=== PATIENT | female | born 1985 | race Caucasian/White ===

== ENCOUNTER 2023-05-20 15:07 | Emergency (ER) | payer MEDICAID, SELFPAY ==
--- NOTE | 2023-05-20 15:10 | ED_ITS ---
HPI - General Adult General Chief complaint: General Medical Stated complaint: need methadone dose? Time Seen by Provider: 05/20/23 15:43 Source: patient Mode of arrival: ambulatory Limitations: no limitations History of Present Illness HPI narrative: This is a 38-year-old female past medical history of anxiety, depression, IV drug abuse last use at 07:00 presenting to the emergency department requesting med refill for trazodone 100 mg p.o. at bedtime for insomnia and requesting to be started on methadone again. Patient reports she has not been able to get her trazodone because her PCP left office she is currently waiting to see a new provider, last took it about a month ago. Patient also reports she is been using 1-2 bags of heroin per day, and is trying to stop. Reports a lot of increasing life stressors and depression. No visual, auditory and tactile hallucinations. No suicidal or homicidal ideation. Followed by therapist and sees him regularly. Denies medical complaints at this time. Patient also requesting Ensure, due to lack of appetite. Related Data Previous Rx's Medication Instructions Recorded food supplemt, lactose-reduced 1 ea PO BID #1,422 mL 05/20/23 (Ensure Original oral liquid) trazodone 100 mg tablet 100 mg PO BEDTIME PRN sleep #10 05/20/23 tabs Allergies Allergy/AdvReac Type Severity Reaction Status Date / Time No Known Allergies Allergy Verified 05/20/23 15:11 [No Known Allergies*] Review of Systems Review of Systems: Constitutional : No Weight loss, No Fever, No Chills, No Fatigue, No Malaise ENT/Mouth : No sore throat, No Rhinorrhea Eyes: No Eye Pain, No Swelling, No Redness Cardiovascular : No Chest Pain, No SOB, No Dyspnea on Exertion, No Orthopnea, No Edema, No Palpitations Respiratory : No Cough, No Sputum, No Wheezing Gastrointestinal : No Nausea, No Vomiting, No Diarrhea, No Constipation, No abdominal Pain, No Hematochezia, No Melena Genitourinary : No Dysuria, No Urinary Frequency, No Hematuria, Musculoskeletal : No joint pain, No Myalgias, No Joint Swelling Skin : No Skin Lesions, No rash Neuro : No Weakness, No Numbness, No Dizziness, No Headache Psych : No Anxiety/Panic, No Depression All other systems reviewed and are negative Yes all other systems are reviewed and are negative PMFSH Past Medical History Attestation statement: The following information was validated with the patient. Source: old records reviewed and nursing notes reviewed Social History Social History Advance Directives: No Advance Directives Information Provided: Yes Physical Exam ED Vital Signs: Vital Signs - 24 hr 05/20/23 15:11 Temperature 98.3 F Pulse Rate 88 Respiratory Rate 16 Blood Pressure 152/99 H Pulse Oximetry 98 Oxygen Delivery Method Room Air BMI result Body Mass Index 18.4 vss Appearance: Alert.? Oriented X3.? No acute distress.? Head: Normocephalic, atraumatic, no step-offs or deformities Eyes: Pupils equal, round and reactive to light.? ENT: Pharynx normal.? Neck: Normal inspection.? Neck supple.? CVS: Normal heart rate and rhythm.? Pulses normal.? Respiratory: No respiratory distress.? Breath sounds normal.? Abdomen: Soft and nontender.? Skin: Skin warm and dry.? Normal skin color.? Normal skin turgor.? Extremities: No lower extremity edema.? No calf ttp. 5/5 strength to bilateral upper and lower extremities Neuro: Oriented X 3.? No motor deficit.? No sensory deficit. CN 2-12 intact Course Course Course Narrative: This is an RME: Additional HPI, ROS, PE not included below will be deferred to primary provider. Patient is a 38-year-old female who presents to the emergency department requesting assistance with detox/methadone. Reports that she was previously established with [facility] clinic in [place], but was discharged due to missed dosing. Last used heroin this morning, intranasal at 0700. She states she needs a dose in ED today, and that she can follow-up there during the weekend, so long as she has a last dose letter and will see their provider 05/24/2023. Reevaluation(s) Reevaluation #1: Educated patient on diagnosis and treatment plan, answered all question, patient verbalizes understanding. At this time patient will be discharged home, advised to return with new or worsening symptoms. Educated on worrisome signs and symptoms and when to return. At this time I feel comfortable discharge home. Time: 17:34 Medications Administered Discontinued Medications Generic Name Dose Route Start Last Admin Trade Name Freq PRN Reason Stop Dose Admin Methadone HCl 30 mg 05/20/23 15:45 05/20/23 16:22 Methadone Hcl 20 Mg/2 Ml Oral.Conc PO 05/20/23 15:46 30 mg ONCE ONE Administration Medical Decision Making Medical Decision Making [facility] Narrative: 1700 38-year-old female presents requesting to start methadone and requesting a trazodone refill. No SI or HI. Reports depression and anxiety. Followed by therapist. Physical exam benign This is likely anxiety and depression at baseline, patient followed by therapist, offered her to be seen by care team however she states she is okay she has her own therapist, who she follows with regularly. No SI or HI no indications for Section 12. No signs of self-harm. Patient is offering with IV drug abuse, will start her on methadone, passenger coach driver is agree that this is a good idea, recovery nurse came to see patient and recommends starting her on 30 mg of methadone will give her last dose letter. Unlikely metabolic derangements. Plan at this time will refill trazodone based off med review patient has been on 100 mg p.o. at bedtime. Will also start her on methadone. No indication for care team evaluation as patient is refusing however it was offered to her. Differential Diagnosis Differential Diagnoses: The differential diagnosis associated with the presentation includes This is likely anxiety and depression at baseline, patient followed by therapist , offered her to be seen by care team however she states she is okay she has her own therapist, who she follows with regularly. No SI or HI no indications for Section 12. No signs of self-harm. Patient is offering with IV drug abuse, will start her on methadone, passenger coach driver is agree that this is a good idea, recovery nurse came to see patient and recommends starting her on 30 mg of methadone will give her last dose letter. Unlikely metabolic derangements. Admission/Observation Consideration of admission/observation: Escalation of care including admission/observation considered No indication Consult Healthcare Provider Management of the patient was discussed with: Psychiatric Registered Nurse Chronic Conditions Patient?s care impacted by: Other (polysubstance abuse ) Discharge Plan Discharge Clinical Impression: Depression, Medication refill Patient Disposition: Home, Self-Care Instructions: Depression (ED) Additional Instructions: Take your medications as prescribed. If you were prescribed antibiotics today, it is important that you take your medication to their entirety, do not skip any doses, do not finish them early. Follow-up with your primary care provider this week. Return to the emergency department with new or worsening symptoms. Such as fevers, chills, chest pain, shortness of breath, nausea, vomiting, dizziness, headache, vision changes, lethargy In case of emergency call 911 You were given your last dose letter here Prescriptions: New trazodone 100 mg tablet 100 mg PO BEDTIME PRN (Reason: sleep) Qty: 10 0RF Ensure Original Liquid 1 ea PO BID Qty: 1422 0RF Referrals: [facility] [Primary Care Provider] - 2 days Stand Alone Forms: Work/School Release
[2023-05-20 15:11] VITALS: BP 152/99; PULSE 88; RESP 16; TEMP 36.8; O2SAT 98; BMI 18.4
--- NOTE | 2023-05-20 15:53 | MHC.RECOVRN ---
Met with pt in RP after pt presented to ED looking to initiate methadone. Pt tearful, reporting increased anxiety and stress and trying to get everything back. Pt reports using 5-10 bags heroin daily, IN, last use this morning, 2 bags. Pt reports recently decreasing to this amount. Pt reports hx methadone through [facility], last dose in February. Pt is currently living in a tent in [place] and has not been in care with any providers recently. Pt has been advocating for herself successfully at [facility] to obtain providers, including mental health and PCP. Pt reports hx of Seroquel, clonazepam, Wellbutrin, trazodone and is looking to restart these as well. Pt educated on limits of the emergency department. Pt also reports recent 30 pound weight loss over the past 2 months and is concerned about overall health. Currently, pt reporting withdrawal symptoms including upset stomach, feeling hot/cold, restless, anxiety, irritability. Pt educated regarding [facility] and plans to present tomorrow morning for dosing. Discussed with ED provider, plan to administer 30 mg methadone. Pts referral sent to [facility]. Last dose letter to be provided to pt by [employer].
[2023-05-20] MEDS: methADONE HCl 20 MG/2 ML ORAL.CONC 30 MG PO (16:22)
[2023-05-20] MEDS: LORazepam 1 MG TABLET PO (17:42)
== END 2023-05-20 17:48 | disposition home or self-care (01) ==
PROVIDERS: Emergency Provider Emergency Medicine
DX: Z76.0 Encounter for issue of repeat prescription (principal); F32.A Depression, unspecified; F11.20 Opioid dependence, uncomplicated
CPT/HCPCS: 99282; 99284

== ENCOUNTER 2024-02-07 02:47 | Emergency (ER) | payer MEDICAID, SELFPAY ==
[2024-02-07 03:00] VITALS: BP 117/70; BP 132/90; PULSE 76; PULSE 95; RESP 18; TEMP 36.4; O2SAT 97; O2SAT 98; BMI 22.1
[2024-02-07 03:07] VITALS: BP 114/77; PULSE 76; RESP 17; TEMP 36.4; O2SAT 98
--- NOTE | 2024-02-07 03:28 | ED.PSYCH ---
HPI - Psych General Chief Complaint: Psychiatric Symptoms Stated Complaint: crisis Time Seen by Provider: 02/07/24 03:27 Source: patient and EMS Mode of arrival: EMS Limitations: no limitations History of Present Illness ED Provider: an ROA Narrative: Patient was running on the street yelling that her boyfriend was kidnapped patient is homeless lives in tent could not find her boyfriend according to patient he had some problem with other persons most likely he is kidnapped and police is not helping her patient denied any psych history or substance abuse Related Data Previous Rx's ?Medication ?Instructions ?Recorded food supplemt, lactose-reduced 1 ea PO BID #1,422 mL 05/20/23 (Ensure Original oral liquid) trazodone 100 mg tablet 100 mg PO BEDTIME PRN sleep #10 05/20/23 tabs Allergies Allergy/AdvReac Type Severity Reaction Status Date / Time No Known Allergies Allergy Verified 02/07/24 03:03 [No Known Allergies*] Review of Systems Review of Systems: Yes all other systems are reviewed and are negative [facility] Social History Social History Advance Directives: No Advance Directives Information Provided: Yes Do you have a plan to hurt others: No Plan Physical Exam Vital Signs: Vital Signs: Last Vital Signs Temp 98.4 F 02/07/24 04:30 Pulse 70 02/07/24 04:30 Resp 16 02/07/24 04:30 BP 117/80 02/07/24 04:30 Pulse Ox 97 02/07/24 04:30 O2 Del Method Room Air 02/07/24 04:30 BMI result Body Mass Index 22.1 Appearance: Alert. Oriented X3. No acute distress. Anxious Eyes: PERRLA, No Nystagmus ENT: Pharynx normal. Oral Mucosa moist Neck: Normal inspection. Neck supple. CVS: Normal heart rate and rhythm. Pulses normal. Respiratory: No respiratory distress. Equal air entry bilateral, no wheezing/rales/rhonchi Abdomen: Soft and nontender. Bowel sounds are present, no mass palpable, no CVA tenderness Skin: Skin warm and dry. Normal skin color. Normal skin turgor. Extremities: No lower extremity edema. No calf tenderness psych: Patient is very anxious denies any hallucination or delusions Neuro: Oriented X 3. No motor deficit. No sensory deficit.No cerebellar signs , cranial nerves II-XII intact Medical Decision Making Medical Decision Making MDM Narrative: Patient with acute anxiety with no prior psych issues feels comfortable to go home patient's mother will pick her up denies any psychotic issues at this time denies any substance abuse will come back to the ER/therapist if not better Discharge Plan Discharge Clinical Impression: Acute anxiety Patient Disposition: Home, Self-Care Instructions: Anxiety (ED) Additional Instructions: Follow up with therapist/psychiatrist Prescriptions: No Action trazodone 100 mg tablet 100 mg PO BEDTIME PRN (Reason: sleep) Qty: 10 0RF Ensure Original Liquid 1 ea PO BID Qty: 1422 0RF Interventions: [place]-Suicide Risk Severity Scale Last Done: 02/07/24 03:58 ED Discharge Assessment Last Done: 02/07/24 04:30 Discharge Date/Time: 02/07/24 04:31 Print Language: Namibian
--- NOTE | 2024-02-07 03:28 | PC.NURSE ---
patient denies was using additional substances today im concerned about my bf, kathi been getting threats, this is what happens when you call police (holding ear constantly) patient does appears guarded, apprehenasive.
[2024-02-07 04:30] VITALS: BP 117/80; PULSE 70; RESP 16; TEMP 36.9; O2SAT 97
== END 2024-02-07 04:31 | disposition home or self-care (01) ==
PROVIDERS: Emergency Provider Internal Medicine
DX: F41.9 Anxiety disorder, unspecified (principal); F19.10 Other psychoactive substance abuse, uncomplicated
CPT/HCPCS: 99283

== ENCOUNTER 2024-06-28 23:14 | Inpatient (IN) | payer MEDICAID, OTHER, SELFPAY ==
[2024-06-28 23:38] VITALS: BP 160/80; BP 170/92; PULSE 80; PULSE 99; RESP 18; TEMP 37; O2SAT 96; O2SAT 98; BMI 19.6
[2024-06-28 23:49] VITALS: BP 141/93; PULSE 93; RESP 17; TEMP 36.9; O2SAT 96
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
--- NOTE | 2024-06-29 | ECG_ITS ---
Test Reason : MED CLEARNCE Blood Pressure : / mmHG Vent. Rate : 085 BPM Atrial Rate : 085 BPM P-R Int : 132 ms QRS Dur : 076 ms QT Int : 360 ms P-R-T Axes : 022 036 055 degrees QTc Int : 428 ms Poor data quality Sinus rhythm with Premature atrial complexes with Aberrant conduction Nonspecific T wave abnormality Abnormal ECG No previous ECGs available Referred By: Gabrielle Contreras Electronically Signed By:DOMENICO FERRARA MD
--- NOTE | 2024-06-29 00:13 | PC.NURSE ---
t/w completed some follow up questions w client patient seems very tangential and disogranized. tech indicates mother called and wanted a call back [phone] jesus
[2024-06-29 00:38] LABS: Appearance Urine Cloudy; Color Urine Dark Yellow; Glucose Urine UA Negative (Negative); Leukocyte Esterase Urine Trace (Negative); Nitrite Urine Negative (Negative); PH 5.5 (5.0-9.0); Specific Gravity - Urine >= 1.030 (1.005-1.025); UMIC TRIGGER UACC YES; Urine Blood Negative (Negative); Urine Ketones 15 mg/dL (Negative); Urine Protein 30 (1+) mg/dL (Neg-Trace)
[2024-06-29 00:40] LABS: UPreg QC Valid YES; Urine Pregnancy NEGATIVE (NEGATIVE)
[2024-06-29] MEDS: LORazepam 1 MG TABLET 2 MG PO ×2 (00:42→09:21)
[2024-06-29 00:49] LABS: Amphetamine Screen Urine Not Detected (Not Detect); Barbiturates, Urine Not Detected (Not Detect); Benzodiazepines Screen Urine Not Detected (Not Detect); Buprenorphine Scr Not Detected (Not Detect); Cannabinoid Screen Urine POSITIVE (Not Detect); Cocaine Screen Urine POSITIVE (Not Detect); Fentanyl, urine POSITIVE (Not Detect); Methadone Screen, Urine Positive (Not Detect); Opiate Screen Urine Not Detected (Not Detect); Oxycodone Screen Urine Not Detected (Not Detect); Phencyclidine Screen Urine Not Detected (Not Detect)
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
[2024-06-29 01:18] LABS: Bacteria Urine 3+ (None Seen); RBC Urine 0-2 /HPF (0-2); WBC Urine 0-5 /HPF (0-5)
[2024-06-29 01:24] LABS: MANUAL DIFF FLAG NO
[2024-06-29 01:29] LABS: Basophils Percent Auto 0.6 % (0-2); Eosinophils Absolute Auto 0.1 X10*3/uL (0.0-0.4); Eosinophils Percent Auto 1.1 % (0-4); Hematocrit 38.1 % (37.0-47.0); Hemoglobin 13.4 g/dl (12.0-16.0); Imm Gran Abs Auto 0.01 X10*3/uL (0.00-0.03); Imm Gran Pct Auto 0.2 % (0.0-0.4); Lymphocytes Absolute Auto 2.7 X10*3/uL (1.2-4.9); Lymphocytes Percent Auto 41.6 % (20-40); Mean Corpuscular HGB Conc 35.2 g/dl (31.0-35.0); Mean Corpuscular Hemoglobin 31.3 pg (27.0-33.0); Mean Platelet Volume 10.7 fL (9.4-12.3); Monocytes Absolute Auto 0.4 X10*3/uL (0.1-1.2); Monocytes Percent Auto 6.7 % (2-11); Neutrophils Absolute Auto 3.3 x10*3/uL (2.0-8.3); Neutrophils Percent Auto 49.8 % (45-73); Platelet Count 215 X10*3/uL (160-400); Red Blood Count 4.28 X10*6/uL (4.20-5.50); Red Cell Distribution Width 12.2 % (11.0-16.0); White Blood Count 6.5 X10*3/uL (4.8-10.8)
[2024-06-29 01:45] LABS: Alanine Aminotransferase 18 U/L (0-31); Alkaline Phosphatase 61 U/L (39-117); Anion Gap 17 (12-20); Aspartate Amino Transferase 34 U/L (5-31); Bilirubin Total 0.9 mg/dL (0.0-1.0); Blood Urea Nitrogen 22 mg/dL (9-16); Calcium 9.8 mg/dL (8.4-10.2); Carbon Dioxide 23 mmol/L (22-29); Chloride 102 mmol/L (96-108); Creatinine Clr Calc Pharmacy 62.5; Estimated Glomerular Filt Rate > 60; Ethanol < 10 mg/dL; Glucose Random 80 mg/dL (60-115); Potassium 3.2 mmol/L (3.3-5.1); Sodium 139 mmol/L (135-145)
--- NOTE | 2024-06-29 04:24 | MHC.CARE ---
T/W spoke with PTs mother Danielle ([phone]) who reports that Pt has reportedly been smoking Crack Cocaine all day with her Boy friend. Danielle said that Pt has a long drug addiction history and is currently homeless. She reports that Pt has had prior suicide attempts by jumping off a bridge around ten years ago, jumping out of a car and drinking Draino because they wouldn't buy her drugs. Danielle reports Pt has been to several Drug treatment programs the most recent being [facility] and the [facility]. Danielle said that she has had to utilize Police assistance to find her because she had not seen or heard from her for two weeks.
[2024-06-29 06:00] VITALS: RESP 18
--- NOTE | 2024-06-29 06:26 | HE.PHANOTE ---
RE METHADONE Pharmacy received patients methadone verification form, patient gets dosed with [facility]. Last dose was 150 mg last dose on 06/28/24 @0900.
[2024-06-29] MEDS: Potassium Chloride ER 20 MEQ TAB.ER.PRT 40 MEQ PO (07:34)
--- NOTE | 2024-06-29 07:34 | PC.NURSE ---
Care of Pt assumed at change of shift. Pt comes to nurses station demanding to leave then returns to her room. Pt eats about 40% of her breakfast. Pt agreeable to take potassium medication following counseling on her low K+ level. During med administration Pt becomes excessively tear and beings to states that people are trying to keep her locked away and steal her money and she cannot be here. Pt given emotional support and verbal reassurance that Care Team will see her.
--- NOTE | 2024-06-29 07:44 | PC.NURSE ---
Per shift change report, Pt was not given oral potassium at time order was generated as Pt resting comfortably. Medication given this AM when Pt is awake/alert. Reviewed with Pt her K+ level and indication for oral replacement and Pt agreeable to take medication at this time.
--- NOTE | 2024-06-29 08:26 | MHC.CARE ---
Patient seen by CARE team. She presents as distressed, paranoid, delusional thought content, actively responding to internal stimuli, agitated. She will be IPLOC, section 12 in chart.
[2024-06-29] MEDS: methADONE HCl 20 MG/2 ML ORAL.CONC 150 MG PO (09:45)
--- NOTE | 2024-06-29 10:50 | PC.NURSE ---
Pt reports [facility] has her identity incorrect. Pt advised Registration is in need to meeting with her to confirm all her information and was called to the pod. Registration attempts to meet with Pt to complete registration process. Per Registration staff, Pt will not verbally respond to questions and does not engage or acknowledge the interaction. Will contact registration again when Pt is willing to cooperate.
--- NOTE | 2024-06-29 12:50 | PC.NURSE ---
Pt being admitted inpatient bed within hospital. RN to RN report completed. Tech and Security with Pt for transport upstairs. Security made aware that Pt has made threats of finding a way to leaving the hospital. Pt leaves ED BH pod in wheelchair without incident.
[2024-06-29 13:06] VITALS: BP 126/66; PULSE 66; RESP 16; TEMP 36.8; O2SAT 98
--- NOTE | 2024-06-29 14:09 | PC.ADMIT ---
This is the 1st admission for this 39 y.o. female to this [facility] at [facility]. Referred by Care Team at [facility] with Dx of Substance induced psychotic d/o with delusions, Cocaine use moderate-severe, Opiate use moderate- severe. Nurse to nurse done with [facility] ED pod prior to admission. Meds verified by [facility] ED Pod, admission orders received from Slime Barajas. Arrived on unit on a Section 12A at 1300 and placed on 15 min safety checks. Precipitating events to admission: brought in by ambulance called by boyfriend due to pt exhibiting paranoia, delusions, responding to internal dialogue. Other precipitating factors include: hx substance use for many years, homelessness-living in tent encampment for many years. Tox screen positive for Methadone, Fentanyl, Cocaine Marijuana. Pt acknowledges use of all substances. Receives Methadone at [facility] daily. ETOH <10, pt denies use. Skin integrity check done upon arrival/tire changer done with 2 staff present. Pt refused to remove small yellow colored hoop from left nose area and small red stone from right tragus; charge nurse and intensive care unit nurse informed. Restless and disorganized during admission process. States this may be due to drug withdrawal. Methadone 150mg po received in [facility] Pod today at 0945. Delusional presentation, speaking about holograms that enter body during surgeries and implant cameras. States she is no longer homeless. States her uncle from [facility] arrived 2 days ago to bring her the money her twin sister left for her. Mood liability noted- calm, restless, tearful, paranoid. States she cannot be kept here and insisting she needs to leave.
--- NOTE | 2024-06-29 15:39 | HO.PSYADMNOT ---
HPI Date of Service: 06/29/24 Chief Complaint: Crisis Sources of Information: patient interviewed, chart reviewed and crisis/core team assessment reviewed HPI Subjective Notes: Moss Warning and Section 12B Narrative: Patient is a 39-year-old female with of PTSD, opioid use d/o, cocaine use d/o, who was brought in by ambulance due to exhibiting paranoia delusional and responding to internal stimuli. Per crisis report, patient is living in a camp site in [place] and was brought in by ambulance due to her boyfriend calling EMS. Patient was loudly yelling and self arguing regarding her organs in holograms. She denies SI/HI. She claimed that she has a twin and the ED had the wrong person. Per patient's mother, patient has struggled with substance abuse since her 20s. She does not exhibit signs and symptoms of psychosis at baseline. Patient reports she has providers through [facility] in [place]. Patient reports treatment at [facility] and history of detox admissions. She denies history of inpatient psychiatric hospitalization. U tox positive for cocaine, fentanyl, methadone, THC. During admission assessment, patient presents with flight of ideas, tangential, paranoid and delusional. Rapid and pressured speech. Disorganized; patient stated, the girl that was cyber bullying me is acting and is jumping in bodies. The holograms are a medical trial that are happening on me and my boyfriend. It is from [place]. She can jump into my boyfriend's body. I need to get my son. I have been dealing with this for 6 years. People are going to him because they are jealous. They put a documentary of me on [place] [employer] . Patient reports using crack/cocaine daily, heroin daily and marijuana daily. Patient requesting to be discharged. Poor insight/judgment. Past Psychiatric History: Patient reports this is her 1st inpatient psychiatric hospitalization. History of detox admissions Provider through [facility]. Medical Evaluation Reviewed: Yes [facility] Family History: Unknown Social History: Homeless, single, 1 son who is with biological father. Disability. GED. Substance History: Patient reports daily crack/cocaine/heroin/marijuana use Trauma History: Yes Diagnostics Vital Signs (24Hr): Vital Signs - 24 hr 06/28/24 23:38 06/28/24 23:49 06/29/24 06:00 Temperature 98.6 F 98.5 F Pulse Rate 80 93 Respiratory Rate 18 17 18 Blood Pressure 160/80 H 141/93 H Pulse Oximetry 98 96 Oxygen Delivery Method Room Air Room Air 06/29/24 13:06 Temperature 98.2 F Pulse Rate 66 Respiratory Rate 16 Blood Pressure 126/66 Pulse Oximetry 98 Oxygen Delivery Method Room Air BMI result Body Mass Index 20.0 Labs 06/29/24 01:17 06/29/24 01:17 Labs: Laboratory Results - last 48 hr 06/29/24 06/29/24 06/29/24 00:26 00:27 01:17 WBC 6.5 RBC 4.28 Hgb 13.4 Hct 38.1 MCV 89.0 MCH 31.3 MCHC 35.2 H RDW 12.2 Plt Count 215 MPV 10.7 Immature Gran % (Auto) 0.2 Neut % (Auto) 49.8 Lymph % (Auto) 41.6 H [place] % (Auto) 6.7 Eos % (Auto) 1.1 Baso % (Auto) 0.6 Lymph # (Auto) 2.7 [place] # (Auto) 0.4 Eos # (Auto) 0.1 Baso # (Auto) 0.0 Abs Immat Gran (auto) 0.01 Absolute Neuts (auto) 3.3 Absolute Nucleated RBC 0.000 Nucleated RBC % (auto) 0.0 Sodium 139 Potassium 3.2 L Chloride 102 Carbon Dioxide 23 Anion Gap 17 BUN 22 H Creatinine 1.00 Estim Creat Clear Calc 62.5 Estimated GFR > 60 Random Glucose 80 Calcium 9.8 Total Bilirubin 0.9 AST 34 H ALT 18 Alkaline Phosphatase 61 Total Protein 8.0 Albumin 5.0 Urine Color Dark Yellow Urine Appearance Cloudy Urine pH 5.5 Ur Specific [place] >= 1.030 H Urine Protein 30 (1+) H Urine Glucose (UA) Negative Urine Ketones 15 Urine Blood Negative Urine Nitrite Negative Ur Leukocyte Esterase Trace H Urine RBC 0-2 Urine WBC 0-5 Ur Squamous Epith Cells 11-20 Urine Bacteria 3+ Hyaline Casts 6-10 Urine Test NEGATIVE Urine Opiates Screen Not Detected Ur Buprenorphine Scrn Not Detected Ur Oxycodone Screen Not Detected Urine Methadone Screen Positive H Urine Fentanyl Screen POSITIVE H Ur Barbiturates Screen Not Detected Ur Phencyclidine Scrn Not Detected Ur Amphetamines Screen Not Detected U Benzodiazepines Scrn Not Detected Urine Cocaine Screen POSITIVE H U Marijuana (THC) Screen POSITIVE H Ethyl Alcohol < 10 Meds/Allergies Meds Home Medications ?Medication ?Instructions ?Recorded ?Confirmed ?Type methadone 150 mg PO DAILY 06/28/24 06/29/24 History Allergies Allergies Allergy/AdvReac Type Severity Reaction Status Date / Time No Known Allergies Allergy Verified 06/28/24 23:45 [No Known Allergies*] Mental Status Exam Mental Status Exam Patient Appearance: Appropriate Level of Consciousness: Awake and Alert Patient Behavior: Anxious and Crying Mood Description: Anxious Affect Description: Anxious Speech Pattern: Rapid, Loud and Pressured Delusions: Paranoid Ideation Thought Process: Racing Thought Content: positive for Racing, positive for Tangential and positive for Disorganized Judgement: Poor Assessment & Plan Assessment & Plan (1) Acute psychosis: Status: Acute Code(s): F23 - Brief psychotic disorder (2) PTSD (post-traumatic stress disorder): Status: Acute Code(s): F43.10 - Post-traumatic stress disorder, unspecified (3) Opioid use disorder: Status: Acute Code(s): F11.90 - Opioid use, unspecified, uncomplicated (4) Cocaine use disorder: Status: Acute Code(s): F14.10 - Cocaine abuse, uncomplicated Plan Patient is a 39-year-old female with of PTSD, opioid use d/o, cocaine use d/o, who was brought in by ambulance due to exhibiting paranoia delusional and responding to internal stimuli. Plan: 12 b 5 minute safety checks Continue methadone dose Start: Risperdal 1 mg p.o. b.i.d. Obtain collateral Discharge planning Patient educated on: diagnosis Reason for continued inpatient stay Substantial Risk for: med/psych decompensation Statement Statement: I have reviewed the history and physical and performed a pertinent examination on my patient. No changes have occurred unless specified. If the History and Physical was not performed prior to admission, the Hospitalist's service will be consulted for completing the admission physical. Time Spent With Patient Time: Total time managing care of this patient today _60___ minutes.
[2024-06-29] MEDS: OLANZapine 5 MG TABLET PO (15:48)
[2024-06-29] MEDS: hydrOXYzine HCL 25 MG TABLET PO (15:48)
[2024-06-29] MEDS: Nicotine 21 MG PATCH.TD24 TRANSDERMA (15:52)
[2024-06-29] MEDS: Nicotine Polacrilex 2 MG GUM 4 MG BUCCAL (15:53)
[2024-06-29] MEDS: traZODone HCL 50 MG TABLET PO (21:24)
[2024-06-29] MEDS: risperiDONE 1 MG TABLET PO (21:24)
[2024-06-30 07:40] VITALS: BP 100/55; PULSE 81; RESP 16; TEMP 37.3; O2SAT 97
[2024-06-30] MEDS: methADONE HCl 20 MG/2 ML ORAL.CONC 150 MG PO (08:24)
[2024-06-30] MEDS: Nicotine Polacrilex 2 MG GUM 4 MG BUCCAL (10:27)
--- NOTE | 2024-06-30 13:20 | HO.PSYCHPN ---
Subjective Subjective Date of Service: 06/30/24 Reason For Visit: Crisis Subjective Notes: Section 12B Interim History: Pt presents as very fearful, hypervigilant, reporting hearing voices telling her that there will be a massacre tonight and her son will be kill too. She believes some people she knows are playing with holograms. she goes on to explain that it started as a game and these people are not tele transporting and killing others. She believes she was sent here to quiet her down because she knows what is happening. She denies SI/HI. Hearing voices of female who she believes is outside waiting for her. She accepted olanzapine and ativan. she demands to be discharged, explained she is on a sect 12b, not doing well and needs treatment. Mental Status Exam Mental Status Exam Narrative: Appearance: wearing hospital gown, fair hygiene, fearful and hypervigilant Behaviors: initially guarded, and irritable, but later calmer Psychomotor: agitation Speech: clear, normal rate/rhythm/volume, spontaneous TP: tangential, at times disorganized TC: needing to go to stop the hologram Mood: not well Affect: very fearful hypervigilant SI: none HI: none VH/AH: hearing voices, also seems some visual hallucinations Delusions: paranoid delusions Insight/judgment: impaired x 2. memory/cog: alert, oriented x 3. not to situation thinks she is here because someone wants her to be quiet about delusions she is aware of. Diagnostics Vital Signs (24Hr): Vital Signs - 24 hr 06/30/24 07:40 Temperature 99.1 F Pulse Rate 81 Respiratory Rate 16 Blood Pressure 100/55 L Pulse Oximetry 97 Oxygen Delivery Method Room Air BMI result Body Mass Index 20.0 Labs 06/29/24 01:17 06/29/24 01:17 Labs: Laboratory Results - last 48 hr 06/29/24 06/29/24 06/29/24 00:26 00:27 01:17 WBC 6.5 RBC 4.28 Hgb 13.4 Hct 38.1 MCV 89.0 MCH 31.3 MCHC 35.2 H RDW 12.2 Plt Count 215 MPV 10.7 Immature Gran % (Auto) 0.2 Neut % (Auto) 49.8 Lymph % (Auto) 41.6 H [place] % (Auto) 6.7 Eos % (Auto) 1.1 Baso % (Auto) 0.6 Lymph # (Auto) 2.7 [place] # (Auto) 0.4 Eos # (Auto) 0.1 Baso # (Auto) 0.0 Abs Immat Gran (auto) 0.01 Absolute Neuts (auto) 3.3 Absolute Nucleated RBC 0.000 Nucleated RBC % (auto) 0.0 Sodium 139 Potassium 3.2 L Chloride 102 Carbon Dioxide 23 Anion Gap 17 BUN 22 H Creatinine 1.00 Estim Creat Clear Calc 62.5 Estimated GFR > 60 Random Glucose 80 Calcium 9.8 Total Bilirubin 0.9 AST 34 H ALT 18 Alkaline Phosphatase 61 Total Protein 8.0 Albumin 5.0 Urine Color Dark Yellow Urine Appearance Cloudy Urine pH 5.5 Ur Specific [place] >= 1.030 H Urine Protein 30 (1+) H Urine Glucose (UA) Negative Urine Ketones 15 Urine Blood Negative Urine Nitrite Negative Ur Leukocyte Esterase Trace H Urine RBC 0-2 Urine WBC 0-5 Ur Squamous Epith Cells 11-20 Urine Bacteria 3+ Hyaline Casts 6-10 Urine Test NEGATIVE Urine Opiates Screen Not Detected Ur Buprenorphine Scrn Not Detected Ur Oxycodone Screen Not Detected Urine Methadone Screen Positive H Urine Fentanyl Screen POSITIVE H Ur Barbiturates Screen Not Detected Ur Phencyclidine Scrn Not Detected Ur Amphetamines Screen Not Detected U Benzodiazepines Scrn Not Detected Urine Cocaine Screen POSITIVE H U Marijuana (THC) Screen POSITIVE H Ethyl Alcohol < 10 Medications Medications Current Medications Acetaminophen (Acetaminophen 325 Mg Tablet) 650 mg PO Q6H PRN PRN Reason: Headache/Pain Mild Scale (1-3) Al Hydroxide/Mg Hydroxide (Magnesium Hydrox/Alum Hydrox 30 Ml Oral.Susp) 30 ml PO Q6H PRN PRN Reason: Heartburn/Nausea Hydroxyzine HCl (Hydroxyzine Hcl 25 Mg Tablet) 25 mg PO Q6H PRN PRN Reason: Anxiety Last Admin: 06/29/24 15:48 Dose: 25 mg Magnesium Hydroxide (Milk Of Magnesia 30 Ml Oral.Susp) 30 ml PO DAILY PRN PRN Reason: Constipation Methadone HCl (Methadone Hcl 20 Mg/2 Ml Oral.Conc) 150 mg PO DAILY [facility] Last Admin: 06/30/24 08:24 Dose: 150 mg Nicotine (Nicotine 21 Mg Patch.Td24) 21 mg TRANSDERMA DAILY [facility] Last Admin: 06/30/24 08:26 Dose: Not Given Nicotine Polacrilex (Nicotine Polacrilex 2 Mg Gum) 4 mg BUCCAL Q2H PRN PRN Reason: Nicotine Cravings Last Admin: 06/30/24 10:27 Dose: 4 mg Olanzapine (Olanzapine 5 Mg Tablet) 5 mg PO Q4H PRN PRN Reason: agitation Last Admin: 06/29/24 15:48 Dose: 5 mg Risperidone (Risperidone 1 Mg Tablet) 1 mg PO BID EN Last Admin: 06/30/24 08:26 Dose: Not Given Trazodone HCl (Trazodone Hcl 50 Mg Tablet) 50 mg PO BEDTIME MRX1 PRN PRN Reason: Insomnia Last Admin: 06/29/24 21:24 Dose: 50 mg Allergies Allergies Allergy/AdvReac Type Severity Reaction Status Date / Time No Known Allergies Allergy Verified 06/28/24 23:45 [No Known Allergies*] Assessment & Plan Assessment & Plan (1) Schizophrenia: Status: Acute Code(s): F20.9 - Schizophrenia, unspecified (2) Acute psychosis: Status: Deleted Code(s): F23 - Brief psychotic disorder (3) PTSD (post-traumatic stress disorder): Status: Acute Code(s): F43.10 - Post-traumatic stress disorder, unspecified (4) Opioid use disorder: Status: Acute Code(s): F11.90 - Opioid use, unspecified, uncomplicated (5) Cocaine use disorder: Status: Acute Code(s): F14.10 - Cocaine abuse, uncomplicated Plan Patient is a 39-year-old female with of PTSD, opioid use d/o, cocaine use d/o, who was brought in by ambulance due to exhibiting paranoia delusional and responding to internal stimuli. Plan: 06/30- continue risperidone, had additional doses of olanzapine and one time doses of ativan due to severe paranoid delusions, hypervigilant and fearful. Reason for continued inpatient stay Substantial Risk for: inability to function Time Spent With Patient Time: Total time managing care of this patient today ____ minutes.
[2024-06-30] MEDS: OLANZapine ODT 10 MG TAB.RAPDIS TRANSLINGU (14:12)
[2024-06-30] MEDS: LORazepam 1 MG TABLET 2 MG PO (14:12)
[2024-06-30 20:00] VITALS: BP 124/80; PULSE 80; RESP 16; TEMP 36.8; O2SAT 98
[2024-06-30] MEDS: traZODone HCL 50 MG TABLET PO (22:58)
[2024-07-01 07:35] VITALS: BP 121/73; PULSE 82; RESP 16; TEMP 37; O2SAT 98
[2024-07-01] MEDS: methADONE HCl 20 MG/2 ML ORAL.CONC 150 MG PO (07:50)
[2024-07-01] MEDS: OLANZapine 10 MG TABLET PO (07:53)
[2024-07-01] MEDS: Nicotine 21 MG PATCH.TD24 TRANSDERMA (08:54)
[2024-07-01] MEDS: Nicotine Polacrilex 2 MG GUM 4 MG BUCCAL ×2 (09:12→14:29)
[2024-07-01] MEDS: LORazepam 1 MG TABLET 2 MG PO (11:54)
[2024-07-01] MEDS: HaloperidoL 5 MG TABLET PO (11:54)
[2024-07-01 20:00] VITALS: BP 124/78; PULSE 80; RESP 16; TEMP 37.1; O2SAT 98
--- NOTE | 2024-07-01 20:01 | HO.PSYCHPN ---
Subjective Subjective Date of Service: 07/01/24 Reason For Visit: Crisis Subjective Notes: Section 12B Interim History: Pt continues to presents as severe paranoid thinking people are going to be killed. She is fearful, hypervigilant. Calmer after our conversation and again agreed haldol 5mg and ativan 2mg. she is insisting on leaving on sect 12b, pending collateral information. Diagnostics Vital Signs (24Hr): Vital Signs - 24 hr 07/01/24 07:35 Temperature 98.6 F Pulse Rate 82 Respiratory Rate 16 Blood Pressure 121/73 Pulse Oximetry 98 Oxygen Delivery Method Room Air BMI result Body Mass Index 20.0 Labs 06/29/24 01:17 06/29/24 01:17 Medications Medications Current Medications Acetaminophen (Acetaminophen 325 Mg Tablet) 650 mg PO Q6H PRN PRN Reason: Headache/Pain Mild Scale (1-3) Al Hydroxide/Mg Hydroxide (Magnesium Hydrox/Alum Hydrox 30 Ml Oral.Susp) 30 ml PO Q6H PRN PRN Reason: Heartburn/Nausea Hydroxyzine HCl (Hydroxyzine Hcl 25 Mg Tablet) 25 mg PO Q6H PRN PRN Reason: Anxiety Last Admin: 06/29/24 15:48 Dose: 25 mg Magnesium Hydroxide (Milk Of Magnesia 30 Ml Oral.Susp) 30 ml PO DAILY PRN PRN Reason: Constipation Methadone HCl (Methadone Hcl 20 Mg/2 Ml Oral.Conc) 150 mg PO DAILY [facility] Last Admin: 07/01/24 07:50 Dose: 150 mg Nicotine (Nicotine 21 Mg Patch.Td24) 21 mg TRANSDERMA DAILY [facility] Last Admin: 07/01/24 08:54 Dose: 21 mg Nicotine Polacrilex (Nicotine Polacrilex 2 Mg Gum) 4 mg BUCCAL Q2H PRN PRN Reason: Nicotine Cravings Last Admin: 07/01/24 14:29 Dose: 4 mg Olanzapine (Olanzapine 10 Mg Tablet) 10 mg PO Q4H PRN PRN Reason: agitation Last Admin: 07/01/24 07:53 Dose: 10 mg Risperidone (Risperidone 1 Mg Tablet) 1 mg PO BID [facility] Last Admin: 07/01/24 08:55 Dose: Not Given Trazodone HCl (Trazodone Hcl 50 Mg Tablet) 50 mg PO BEDTIME MRX1 PRN PRN Reason: Insomnia Last Admin: 06/30/24 22:58 Dose: 50 mg Allergies Allergies Allergy/AdvReac Type Severity Reaction Status Date / Time No Known Allergies Allergy Verified 06/28/24 23:45 [No Known Allergies*] Assessment & Plan Assessment & Plan (1) Acute psychosis: Status: Deleted Code(s): F23 - Brief psychotic disorder (2) PTSD (post-traumatic stress disorder): Status: Acute Code(s): F43.10 - Post-traumatic stress disorder, unspecified (3) Opioid use disorder: Status: Acute Code(s): F11.90 - Opioid use, unspecified, uncomplicated (4) Cocaine use disorder: Status: Acute Code(s): F14.10 - Cocaine abuse, uncomplicated Plan Patient is a 39-year-old female with of PTSD, opioid use d/o, cocaine use d/o, who was brought in by ambulance due to exhibiting paranoia delusional and responding to internal stimuli. Plan: 12 b 5 minute safety checks Continue methadone dose 07/01 continue current medications, has required prn antipsychotic due to paranoia. Reason for continued inpatient stay Substantial Risk for: inability to function Time Spent With Patient Time: Total time managing care of this patient today ____ minutes.
[2024-07-01] MEDS: LORazepam 1 MG TABLET PO (20:49)
[2024-07-01] MEDS: traZODone HCL 50 MG TABLET PO (20:49)
[2024-07-01] MEDS: Milk of Magnesia 30 ML ORAL.SUSP PO (20:54)
[2024-07-02] MEDS: methADONE HCl 20 MG/2 ML ORAL.CONC 150 MG PO (07:45)
[2024-07-02 08:00] VITALS: RESP 16
[2024-07-02] MEDS: Nicotine Polacrilex 2 MG GUM 4 MG BUCCAL ×2 (09:08→12:33)
[2024-07-02] MEDS: Nicotine 21 MG PATCH.TD24 TRANSDERMA (09:09)
--- NOTE | 2024-07-02 10:13 | P.PNPSI_ITS ---
Subjective Subjective Date of Service: 07/02/24 Reason For Visit: Crisis Subjective Notes: Section 12B Interim History: Patient presents labile and disorganized. Demanding to be discharged; educated that she is on a section 12B. 12B up on 07/05/24. Delusional, paranoid, anxious. Rapid and pressured speech. Patient stated, I was put here wrongfully. I have been cyber-bullied for 6 years. In January they killed me and put me in a hologram. It's hard to explain. I never said I was going to kill myself. I thought my boyfriend was going to kill me but it was not him; it's Nellie who was inside of his body. I don't want to say too much. You know the movies where you can hope to someone's body, that is what they are doing. I would never hurt any of them. I would reported to the Feds if they try to hurt me . T/W reviewed risks/benefits of Haldol and ativan; pt agreed to taking medications while hospitalized. She denies SI/HI/VH/AH. Start: Haldol 5mg PO BID and Ativan 0.5mg PO BID Review of Systems Constitutional: Reports as per HPI Eyes: Reports as per HPI Reports as per HPI Cardiovascular: Reports as per HPI Respiratory: Reports as per HPI Gastrointestinal: Reports as per HPI Genitourinary: Reports as per HPI Musculoskeletal: Reports as per HPI Skin/Breast: Reports as per HPI Reports as per HPI Psychiatric: Reports as per HPI Endocrine: Reports as per HPI Hematologic/Lymphatic: Reports as per HPI Allergic/Immunologic: Reports as per HPI Mental Status Exam Mental Status Exam Narrative: Pt is alert and oriented; behavior is anxious; dressed in casual attire; eye contact appropriate; Speech is rapid rate, normal volume and pressured; labile, disorganized, paranoid, delusional, focused on discharge. denies SI/HI/VH/AH. Diagnostics Vital Signs (24Hr): Vital Signs - 24 hr 07/01/24 20:00 Temperature 98.7 F Pulse Rate 80 Respiratory Rate 16 Blood Pressure 124/78 Pulse Oximetry 98 Oxygen Delivery Method Room Air BMI result Body Mass Index 20.0 Labs 06/29/24 01:17 06/29/24 01:17 Medications Medications Current Medications Acetaminophen (Acetaminophen 325 Mg Tablet) 650 mg PO Q6H PRN PRN Reason: Headache/Pain Mild Scale (1-3) Al Hydroxide/Mg Hydroxide (Magnesium Hydrox/Alum Hydrox 30 Ml Oral.Susp) 30 ml PO Q6H PRN PRN Reason: Heartburn/Nausea Hydroxyzine HCl (Hydroxyzine Hcl 25 Mg Tablet) 25 mg PO Q6H PRN PRN Reason: Anxiety Last Admin: 06/29/24 15:48 Dose: 25 mg Magnesium Hydroxide (Milk Of Magnesia 30 Ml Oral.Susp) 30 ml PO DAILY PRN PRN Reason: Constipation Last Admin: 07/01/24 20:54 Dose: 30 ml Methadone HCl (Methadone Hcl 20 Mg/2 Ml Oral.Conc) 150 mg PO DAILY [facility] Last Admin: 07/02/24 07:45 Dose: 150 mg Nicotine (Nicotine 21 Mg Patch.Td24) 21 mg TRANSDERMA DAILY [facility] Last Admin: 07/02/24 09:09 Dose: 21 mg Nicotine Polacrilex (Nicotine Polacrilex 2 Mg Gum) 4 mg BUCCAL Q2H PRN PRN Reason: Nicotine Cravings Last Admin: 07/02/24 09:08 Dose: 4 mg Olanzapine (Olanzapine 10 Mg Tablet) 10 mg PO Q4H PRN PRN Reason: agitation Last Admin: 07/01/24 07:53 Dose: 10 mg Risperidone (Risperidone 1 Mg Tablet) 1 mg PO BID [facility] Last Admin: 07/02/24 09:09 Dose: Not Given Trazodone HCl (Trazodone Hcl 50 Mg Tablet) 50 mg PO BEDTIME MRX1 PRN PRN Reason: Insomnia Last Admin: 07/01/24 20:49 Dose: 50 mg Allergies Allergies Allergy/AdvReac Type Severity Reaction Status Date / Time No Known Allergies Allergy Verified 06/28/24 23:45 [No Known Allergies*] Assessment & Plan Assessment & Plan (1) Acute psychosis: Status: Deleted Code(s): F23 - Brief psychotic disorder (2) PTSD (post-traumatic stress disorder): Status: Acute Code(s): F43.10 - Post-traumatic stress disorder, unspecified (3) Opioid use disorder: Status: Acute Code(s): F11.90 - Opioid use, unspecified, uncomplicated (4) Cocaine use disorder: Status: Acute Code(s): F14.10 - Cocaine abuse, uncomplicated Plan Patient is a 39-year-old female with of PTSD, opioid use d/o, cocaine use d/o, who was brought in by ambulance due to exhibiting paranoia delusional and responding to internal stimuli. Plan: 12 b 5 minute safety checks Continue methadone dose 07/01 continue current medications, has required prn antipsychotic due to paranoia. 07/03: Patient presents labile and disorganized. Demanding to be discharged; educated that she is on a section 12B. 12B up on 07/05/24. Delusional, paranoid, anxious. Rapid and pressured speech. Patient stated, I was put here wrongfully. I have been cyber-bullied for 6 years. In January they killed me and put me in a hologram. It's hard to explain. I never said I was going to kill myself. I thought my boyfriend was going to kill me but it was not him; it's Nellie who was inside of his body. I don't want to say too much. You know the movies where you can hope to someone's body, that is what they are doing. I would never hurt any of them. I would reported to the Feds if they try to hurt me . T/W reviewed risks/benefits of Haldol and ativan; pt agreed to taking medications while hospitalized. She denies SI/HI/VH/AH. T/W called pt's mother, Danielle, to obtain collateral; waiting ad operations specialist back. Start: Haldol 5mg PO BID and Ativan 0.5mg PO BID Patient educated on: diagnosis and medication risk/benefits Reason for continued inpatient stay Substantial Risk for: med/psych decompensation Time Spent With Patient Time: Total time managing care of this patient today _30___ minutes.
[2024-07-02] MEDS: HaloperidoL 5 MG TABLET PO ×2 (12:59→20:24)
[2024-07-02] MEDS: LORazepam 0.5 MG TABLET PO ×2 (13:07→20:24)
[2024-07-02] MEDS: OLANZapine 10 MG TABLET PO (14:57)
[2024-07-02] MEDS: hydrOXYzine HCL 25 MG TABLET PO (17:23)
[2024-07-02 20:00] VITALS: BP 128/78; PULSE 83; RESP 16; TEMP 36.6; O2SAT 98
[2024-07-02] MEDS: traZODone HCL 50 MG TABLET PO (20:24)
[2024-07-03 07:35] VITALS: BP 121/75; PULSE 78; RESP 16; TEMP 36.7; O2SAT 99
[2024-07-03] MEDS: methADONE HCl 20 MG/2 ML ORAL.CONC 150 MG PO (07:37)
[2024-07-03] MEDS: HaloperidoL 5 MG TABLET PO ×2 (08:03→20:42)
[2024-07-03] MEDS: Nicotine 21 MG PATCH.TD24 TRANSDERMA (08:03)
[2024-07-03] MEDS: LORazepam 0.5 MG TABLET PO ×2 (08:03→20:42)
--- NOTE | 2024-07-03 09:38 | P.PNPSI_ITS ---
Subjective Subjective Date of Service: 07/03/24 Reason For Visit: Crisis Subjective Notes: Section 12B Interim History: Patient continues to present labile and disorganized. Demanding to be discharged; educated that she is on a section 12B. 12B up on 07/05/24. Delusional, paranoid, anxious. Rapid and pressured speech. Patient stated, I'm not supposed to be here. I'm not suicidal. Call the agronomy research manager and they will tell you. I've been telling people about the holograms for years. They want my money from an inheritance from my third cousin. My family from [facility] and [employer] are coming. I don't have their numbers for you to talk to them. You can call my mom but it won't be my mom because they intercept the calls and act like her . T/W reviewed risks/benefits of Depakote; pt agreed to trial. denies SI/HI/VH/AH. Start: Depakote 250mg PO BID T/W spoke to pt's mother with pt's verbal permission. Pt's mother, Danielle, reports she is considering Section 35'ing pt tomorrow. She reports they do not have any family in [facility] or [facility] and that information is not accurate. Danielle states she is considering visiting patient tomorrow. Medication Compliance: Yes Side effects from medications: No Review of Systems Constitutional: Reports as per HPI Eyes: Reports as per HPI Reports as per HPI Cardiovascular: Reports as per HPI Respiratory: Reports as per HPI Gastrointestinal: Reports as per HPI Musculoskeletal: Reports as per HPI Skin/Breast: Reports as per HPI Reports as per HPI Psychiatric: Reports as per HPI Endocrine: Reports as per HPI Hematologic/Lymphatic: Reports as per HPI Allergic/Immunologic: Reports as per HPI Mental Status Exam Mental Status Exam Narrative: Pt is alert and oriented; behavior is anxious; dressed in casual attire; eye contact appropriate; Speech is rapid rate, normal volume and pressured; labile, disorganized, paranoid, delusional, focused on discharge. denies SI/HI/VH/AH. Diagnostics Vital Signs (24Hr): Vital Signs - 24 hr 07/02/24 20:00 07/03/24 07:35 Temperature 97.8 F 98.0 F Pulse Rate 83 78 Respiratory Rate 16 16 Blood Pressure 128/78 121/75 Pulse Oximetry 98 99 Oxygen Delivery Method Room Air Room Air BMI result Body Mass Index 20.0 Labs 06/29/24 01:17 06/29/24 01:17 Medications Medications Current Medications Acetaminophen (Acetaminophen 325 Mg Tablet) 650 mg PO Q6H PRN PRN Reason: Headache/Pain Mild Scale (1-3) Al Hydroxide/Mg Hydroxide (Magnesium Hydrox/Alum Hydrox 30 Ml Oral.Susp) 30 ml PO Q6H PRN PRN Reason: Heartburn/Nausea Haloperidol (Haloperidol 5 Mg Tablet) 5 mg PO BID [facility] Last Admin: 07/03/24 08:03 Dose: 5 mg Hydroxyzine HCl (Hydroxyzine Hcl 25 Mg Tablet) 25 mg PO Q6H PRN PRN Reason: Anxiety Last Admin: 07/02/24 17:23 Dose: 25 mg Lorazepam (Lorazepam 0.5 Mg Tablet) 0.5 mg PO BID [facility] Last Admin: 07/03/24 08:03 Dose: 0.5 mg Magnesium Hydroxide (Milk Of Magnesia 30 Ml Oral.Susp) 30 ml PO DAILY PRN PRN Reason: Constipation Last Admin: 07/01/24 20:54 Dose: 30 ml Methadone HCl (Methadone Hcl 20 Mg/2 Ml Oral.Conc) 150 mg PO DAILY [facility] Last Admin: 07/03/24 07:37 Dose: 150 mg Nicotine (Nicotine 21 Mg Patch.Td24) 21 mg TRANSDERMA DAILY [facility] Last Admin: 07/03/24 08:03 Dose: 21 mg Nicotine Polacrilex (Nicotine Polacrilex 2 Mg Gum) 4 mg BUCCAL Q2H PRN PRN Reason: Nicotine Cravings Last Admin: 07/02/24 12:33 Dose: 4 mg Olanzapine (Olanzapine 10 Mg Tablet) 10 mg PO Q4H PRN PRN Reason: agitation Last Admin: 07/02/24 14:57 Dose: 10 mg Trazodone HCl (Trazodone Hcl 50 Mg Tablet) 50 mg PO BEDTIME MRX1 PRN PRN Reason: Insomnia Last Admin: 07/02/24 20:24 Dose: 50 mg Allergies Allergies Allergy/AdvReac Type Severity Reaction Status Date / Time No Known Allergies Allergy Verified 06/28/24 23:45 [No Known Allergies*] Assessment & Plan Assessment & Plan (1) Acute psychosis: Status: Deleted Code(s): F23 - Brief psychotic disorder (2) PTSD (post-traumatic stress disorder): Status: Acute Code(s): F43.10 - Post-traumatic stress disorder, unspecified (3) Opioid use disorder: Status: Acute Code(s): F11.90 - Opioid use, unspecified, uncomplicated (4) Cocaine use disorder: Status: Acute Code(s): F14.10 - Cocaine abuse, uncomplicated Plan Patient is a 39-year-old female with of PTSD, opioid use d/o, cocaine use d/o, who was brought in by ambulance due to exhibiting paranoia delusional and responding to internal stimuli. Plan: 12 b 5 minute safety checks Continue methadone dose 07/01 continue current medications, has required prn antipsychotic due to paranoia. 07/03: Patient presents labile and disorganized. Demanding to be discharged; educated that she is on a section 12B. 12B up on 07/05/24. Delusional, paranoid, anxious. Rapid and pressured speech. Patient stated, I was put here wrongfully. I have been cyber-bullied for 6 years. In January they killed me and put me in a hologram. It's hard to explain. I never said I was going to kill myself. I thought my boyfriend was going to kill me but it was not him; it's Nellie who was inside of his body. I don't want to say too much. You know the movies where you can hope to someone's body, that is what they are doing. I would never hurt any of them. I would reported to the Feds if they try to hurt me . T/W reviewed risks/benefits of Haldol and ativan; pt agreed to taking medications while hospitalized. She denies SI/HI/VH/AH. T/W called pt's mother, Danielle, to obtain collateral; waiting yard person back. Start: Haldol 5mg PO BID and Ativan 0.5mg PO BID 07/03: Patient continues to present labile and disorganized. Demanding to be discharged; educated that she is on a section 12B. 12B up on 07/05/24. Delusional, paranoid, anxious. Rapid and pressured speech. Patient stated, I'm not supposed to be here. I'm not suicidal. Call the agronomy research manager and they will tell you. I've been telling people about the holograms for years. They want my money from an inheritance from my third cousin. My family from [facility] and [place] are coming. I don't have their numbers for you to talk to them. You can call my mom but it won't be my mom because they intercept the calls and act like her . T/W reviewed risks/benefits of Depakote; pt agreed to trial. denies SI/HI/VH/AH. Start: Depakote 250mg PO BID T/W spoke to pt's mother with pt's verbal permission. Pt's mother, Danielle, reports she is considering Section 35'ing pt tomorrow. She reports they do not have any family in [facility] or [facility] and that information is not accurate. Danielle states she is considering visiting patient tomorrow. Patient educated on: diagnosis and medication risk/benefits Reason for continued inpatient stay Substantial Risk for: med/psych decompensation Time Spent With Patient Time: Total time managing care of this patient today _30___ minutes.
[2024-07-03] MEDS: OLANZapine 10 MG TABLET PO (10:53)
[2024-07-03] MEDS: hydrOXYzine HCL 25 MG TABLET PO (13:52)
[2024-07-03] MEDS: Divalproex Sodium 250 MG TABLET.DR PO ×2 (16:52→20:42)
[2024-07-03] MEDS: Nicotine Polacrilex 2 MG GUM 4 MG BUCCAL ×2 (18:10→20:42)
[2024-07-03 20:00] VITALS: BP 101/60; PULSE 70; RESP 16; TEMP 36.9; O2SAT 98
[2024-07-03] MEDS: traZODone HCL 50 MG TABLET PO (20:42)
[2024-07-04 07:35] VITALS: BP 116/72; PULSE 73; RESP 16; TEMP 37.2; O2SAT 97
[2024-07-04] MEDS: methADONE HCl 20 MG/2 ML ORAL.CONC 150 MG PO (07:52)
[2024-07-04] MEDS: Divalproex Sodium 250 MG TABLET.DR PO ×2 (08:14→20:09)
[2024-07-04] MEDS: Nicotine 21 MG PATCH.TD24 TRANSDERMA (08:14)
[2024-07-04] MEDS: HaloperidoL 5 MG TABLET PO ×2 (08:15→20:09)
[2024-07-04] MEDS: LORazepam 0.5 MG TABLET PO ×2 (08:15→20:09)
[2024-07-04] MEDS: Nicotine Polacrilex 2 MG GUM 4 MG BUCCAL ×3 (08:17→20:08)
--- NOTE | 2024-07-04 09:00 | HO.PSYCHPN ---
Subjective Subjective Date of Service: 07/04/24 Reason For Visit: Crisis Subjective Notes: Section 12B Interim History: Pt slept most of the night.. She appears calmer, less paranoid, some insight that treatment may be helping, but residual paranoid ideas of hallogram, and people about to be killed continue although to lesser extend. She asked to be discharged today, which this typewriter mechanic explained she is not ready yet. She can discussed with primary team tomorrow whether she will be dc tomorrow or filing will happen. Pt somewhat understanding as she agrees that medications have helped. No SI/HI. Less VH/AH. Medication Compliance: Yes Side effects from medications: No Diagnostics Vital Signs (24Hr): Vital Signs - 24 hr 07/03/24 20:00 07/04/24 07:35 Temperature 98.5 F 98.9 F Pulse Rate 70 73 Respiratory Rate 16 16 Blood Pressure 101/60 116/72 Pulse Oximetry 98 97 Oxygen Delivery Method Room Air Room Air BMI result Body Mass Index 20.0 Labs 06/29/24 01:17 07/04/24 08:07 Medications Medications Current Medications Acetaminophen (Acetaminophen 325 Mg Tablet) 650 mg PO Q6H PRN PRN Reason: Headache/Pain Mild Scale (1-3) Al Hydroxide/Mg Hydroxide (Magnesium Hydrox/Alum Hydrox 30 Ml Oral.Susp) 30 ml PO Q6H PRN PRN Reason: Heartburn/Nausea Divalproex Sodium (Divalproex Sodium 250 Mg Tablet.Dr) 250 mg PO BID [facility] Last Admin: 07/04/24 08:14 Dose: 250 mg Haloperidol (Haloperidol 5 Mg Tablet) 5 mg PO BID [facility] Last Admin: 07/04/24 08:15 Dose: 5 mg Hydroxyzine HCl (Hydroxyzine Hcl 25 Mg Tablet) 25 mg PO Q6H PRN PRN Reason: Anxiety Last Admin: 07/03/24 13:52 Dose: 25 mg Lorazepam (Lorazepam 0.5 Mg Tablet) 0.5 mg PO BID [facility] Last Admin: 07/04/24 08:15 Dose: 0.5 mg Magnesium Hydroxide (Milk Of Magnesia 30 Ml Oral.Susp) 30 ml PO DAILY PRN PRN Reason: Constipation Last Admin: 07/01/24 20:54 Dose: 30 ml Methadone HCl (Methadone Hcl 20 Mg/2 Ml Oral.Conc) 150 mg PO DAILY [facility] Last Admin: 07/04/24 07:52 Dose: 150 mg Nicotine (Nicotine 21 Mg Patch.Td24) 21 mg TRANSDERMA DAILY [facility] Last Admin: 07/04/24 08:14 Dose: 21 mg Nicotine Polacrilex (Nicotine Polacrilex 2 Mg Gum) 4 mg BUCCAL Q2H PRN PRN Reason: Nicotine Cravings Last Admin: 07/04/24 08:17 Dose: 4 mg Olanzapine (Olanzapine 10 Mg Tablet) 10 mg PO Q4H PRN PRN Reason: agitation Last Admin: 07/03/24 10:53 Dose: 10 mg Trazodone HCl (Trazodone Hcl 50 Mg Tablet) 50 mg PO BEDTIME MRX1 PRN PRN Reason: Insomnia Last Admin: 07/03/24 20:42 Dose: 50 mg Allergies Allergies Allergy/AdvReac Type Severity Reaction Status Date / Time No Known Allergies Allergy Verified 06/28/24 23:45 [No Known Allergies*] Assessment & Plan Assessment & Plan (1) Schizophrenia: Status: Acute Code(s): F20.9 - Schizophrenia, unspecified (2) Opioid use disorder: Status: Acute Code(s): F11.90 - Opioid use, unspecified, uncomplicated (3) Cocaine use disorder: Status: Acute Code(s): F14.10 - Cocaine abuse, uncomplicated Plan Patient is a 39-year-old female with of PTSD, opioid use d/o, cocaine use d/o, who was brought in by ambulance due to exhibiting paranoia delusional and responding to internal stimuli. Plan: 12 b 5 minute safety checks Continue methadone dose 07/01 continue current medications, has required prn antipsychotic due to paranoia. 07/03: Patient presents labile and disorganized. Demanding to be discharged; educated that she is on a section 12B. 12B up on 07/05/24. Delusional, paranoid, anxious. Rapid and pressured speech. Patient stated, I was put here wrongfully. I have been cyber-bullied for 6 years. In January they killed me and put me in a hologram. It's hard to explain. I never said I was going to kill myself. I thought my boyfriend was going to kill me but it was not him; it's Nellie who was inside of his body. I don't want to say too much. You know the movies where you can hope to someone's body, that is what they are doing. I would never hurt any of them. I would reported to the Feds if they try to hurt me . T/W reviewed risks/benefits of Haldol and ativan; pt agreed to taking medications while hospitalized. She denies SI/HI/VH/AH. T/W called pt's mother, Danielle, to obtain collateral; waiting airways control specialist back. Start: Haldol 5mg PO BID and Ativan 0.5mg PO BID 07/03: Patient continues to present labile and disorganized. Demanding to be discharged; educated that she is on a section 12B. 12B up on 07/05/24. Delusional, paranoid, anxious. Rapid and pressured speech. Patient stated, I'm not supposed to be here. I'm not suicidal. Call the tube sorter and they will tell you. I've been telling people about the holograms for years. They want my money from an inheritance from my third cousin. My family from [facility] and [employer] are coming. I don't have their numbers for you to talk to them. You can call my mom but it won't be my mom because they intercept the calls and act like her . T/W reviewed risks/benefits of Depakote; pt agreed to trial. denies SI/HI/VH/AH. Start: Depakote 250mg PO BID T/W spoke to pt's mother with pt's verbal permission. Pt's mother, Danielle, reports she is considering Section 35'ing pt tomorrow. She reports they do not have any family in [facility] or [facility] and that information is not accurate. Danielle states she is considering visiting patient tomorrow. 07/04 continue tx. Reason for continued inpatient stay Substantial Risk for: inability to function Time Spent With Patient Time: Total time managing care of this patient today ____ minutes.
[2024-07-04 09:02] LABS: Alanine Aminotransferase 55 U/L (0-31); Albumin Level 3.9 g/dL (3.5-5.0); Alkaline Phosphatase 54 U/L (39-117); Anion Gap 12 (12-20); Aspartate Amino Transferase 45 U/L (5-31); Bilirubin Total 0.2 mg/dL (0.0-1.0); Blood Urea Nitrogen 11 mg/dL (9-16); Calcium 8.5 mg/dL (8.4-10.2); Carbon Dioxide 25 mmol/L (22-29); Chloride 106 mmol/L (96-108); Cholesterol 142 mg/dL (<200); Creatinine Clr Calc Pharmacy 84.7; Estimated Glomerular Filt Rate > 60; Glucose Fasting 105 mg/dL (60-99); HDL Cholesterol 41 mg/dL (>40); LDL Cholesterol Calculated 64 mg/dL (<100); Potassium 4.3 mmol/L (3.3-5.1); Sodium 139 mmol/L (135-145); Total Protein 6.4 g/dL (6.5-8.0); Triglycerides 185 mg/dL (<150)
[2024-07-04] MEDS: hydrOXYzine HCL 25 MG TABLET PO ×3 (12:00→22:52)
[2024-07-04 20:00] VITALS: BP 127/76; PULSE 68; RESP 14; TEMP 36.8; O2SAT 99
[2024-07-04] MEDS: traZODone HCL 50 MG TABLET PO ×2 (20:09→22:52)
[2024-07-04] MEDS: OLANZapine 10 MG TABLET PO (22:52)
[2024-07-05 07:00] VITALS: BMI 22.6
[2024-07-05 07:35] VITALS: BP 106/79; PULSE 71; RESP 16; TEMP 36.8; O2SAT 99
[2024-07-05] MEDS: methADONE HCl 20 MG/2 ML ORAL.CONC 150 MG PO (07:38)
[2024-07-05] MEDS: LORazepam 0.5 MG TABLET PO ×2 (08:12→20:17)
[2024-07-05] MEDS: Divalproex Sodium 250 MG TABLET.DR PO ×2 (08:12→20:17)
[2024-07-05] MEDS: HaloperidoL 5 MG TABLET PO ×2 (08:12→20:17)
[2024-07-05] MEDS: Nicotine 21 MG PATCH.TD24 TRANSDERMA (08:12)
--- NOTE | 2024-07-05 09:47 | HO.PSYCHPN ---
Subjective Subjective Date of Service: 07/05/24 Reason For Visit: Crisis Subjective Notes: 3 Day Interim History: Active on unit, pt presents calmer and more organized. 12b up today; pt agreed to stay longer d/t feeling benefit of medication. Pt signed CV, followed by 3 day notice. 3 day up on 07/10/24. Pt continues paranoid and delusional; pt stated, I'm going to move with my partner to [place]. I don't know why my mom said we don't have family in [facility] or [facility] because we do . denies SI/HI/VH/AH. Medication Compliance: Yes Side effects from medications: No Attending Groups: Intermittent Review of Systems Constitutional: Reports as per HPI Eyes: Reports as per HPI Reports as per HPI Cardiovascular: Reports as per HPI Respiratory: Reports as per HPI Gastrointestinal: Reports as per HPI Genitourinary: Reports as per HPI Musculoskeletal: Reports as per HPI Skin/Breast: Reports as per HPI Reports as per HPI Psychiatric: Reports as per HPI Endocrine: Reports as per HPI Hematologic/Lymphatic: Reports as per HPI Allergic/Immunologic: Reports as per HPI Mental Status Exam Mental Status Exam Narrative: Pt is alert and oriented; behavior is anxious; dressed in casual attire; eye contact appropriate; Speech is normal rate, volume and not pressured; more organized;continues paranoid, delusional, focused on discharge. denies SI/HI/VH/AH. Diagnostics Vital Signs (24Hr): Vital Signs - 24 hr 07/04/24 20:00 07/05/24 07:35 Temperature 98.2 F 98.2 F Pulse Rate 68 71 Respiratory Rate 14 16 Blood Pressure 127/76 106/79 Pulse Oximetry 99 99 Oxygen Delivery Method Room Air Room Air BMI result Body Mass Index 20.0 Labs 06/29/24 01:17 07/04/24 08:07 Labs: Laboratory Results - last 48 hr 07/04/24 08:07 Sodium 139 Potassium 4.3 D Chloride 106 Carbon Dioxide 25 Anion Gap 12 BUN 11 Creatinine 0.75 Estim Creat Clear Calc 84.7 Estimated GFR > 60 Fasting Glucose 105 H Calcium 8.5 D Total Bilirubin 0.2 AST 45 H ALT 55 H Alkaline Phosphatase 54 Total Protein 6.4 L Albumin 3.9 Triglycerides 185 H Cholesterol 142 LDL Cholesterol, Calc 64 HDL Cholesterol 41 Medications Medications Current Medications Acetaminophen (Acetaminophen 325 Mg Tablet) 650 mg PO Q6H PRN PRN Reason: Headache/Pain Mild Scale (1-3) Al Hydroxide/Mg Hydroxide (Magnesium Hydrox/Alum Hydrox 30 Ml Oral.Susp) 30 ml PO Q6H PRN PRN Reason: Heartburn/Nausea Divalproex Sodium (Divalproex Sodium 250 Mg Tablet.Dr) 250 mg PO BID [facility] Last Admin: 07/05/24 08:12 Dose: 250 mg Haloperidol (Haloperidol 5 Mg Tablet) 5 mg PO BID [facility] Last Admin: 07/05/24 08:12 Dose: 5 mg Hydroxyzine HCl (Hydroxyzine Hcl 25 Mg Tablet) 25 mg PO Q6H PRN PRN Reason: Anxiety Last Admin: 07/04/24 22:52 Dose: 25 mg Lorazepam (Lorazepam 0.5 Mg Tablet) 0.5 mg PO BID [facility] Last Admin: 07/05/24 08:12 Dose: 0.5 mg Magnesium Hydroxide (Milk Of Magnesia 30 Ml Oral.Susp) 30 ml PO DAILY PRN PRN Reason: Constipation Last Admin: 07/01/24 20:54 Dose: 30 ml Methadone HCl (Methadone Hcl 20 Mg/2 Ml Oral.Conc) 150 mg PO DAILY [facility] Last Admin: 07/05/24 07:38 Dose: 150 mg Nicotine (Nicotine 21 Mg Patch.Td24) 21 mg TRANSDERMA DAILY [facility] Last Admin: 07/05/24 08:12 Dose: 21 mg Nicotine Polacrilex (Nicotine Polacrilex 2 Mg Gum) 4 mg BUCCAL Q2H PRN PRN Reason: Nicotine Cravings Last Admin: 07/04/24 20:08 Dose: 4 mg Olanzapine (Olanzapine 10 Mg Tablet) 10 mg PO Q4H PRN PRN Reason: agitation Last Admin: 07/04/24 22:52 Dose: 10 mg Trazodone HCl (Trazodone Hcl 50 Mg Tablet) 50 mg PO BEDTIME MRX1 PRN PRN Reason: Insomnia Last Admin: 07/04/24 22:52 Dose: 50 mg Allergies Allergies Allergy/AdvReac Type Severity Reaction Status Date / Time No Known Allergies Allergy Verified 06/28/24 23:45 [No Known Allergies*] Assessment & Plan Assessment & Plan (1) Schizophrenia: Status: Acute Code(s): F20.9 - Schizophrenia, unspecified (2) Opioid use disorder: Status: Acute Code(s): F11.90 - Opioid use, unspecified, uncomplicated (3) Cocaine use disorder: Status: Acute Code(s): F14.10 - Cocaine abuse, uncomplicated Plan Patient is a 39-year-old female with of PTSD, opioid use d/o, cocaine use d/o, who was brought in by ambulance due to exhibiting paranoia delusional and responding to internal stimuli. Plan: 12 b 5 minute safety checks Continue methadone dose 07/01 continue current medications, has required prn antipsychotic due to paranoia. 07/03: Patient presents labile and disorganized. Demanding to be discharged; educated that she is on a section 12B. 12B up on 07/05/24. Delusional, paranoid, anxious. Rapid and pressured speech. Patient stated, I was put here wrongfully. I have been cyber-bullied for 6 years. In January they killed me and put me in a hologram. It's hard to explain. I never said I was going to kill myself. I thought my boyfriend was going to kill me but it was not him; it's Nellie who was inside of his body. I don't want to say too much. You know the movies where you can hope to someone's body, that is what they are doing. I would never hurt any of them. I would reported to the Feds if they try to hurt me . T/W reviewed risks/benefits of Haldol and ativan; pt agreed to taking medications while hospitalized. She denies SI/HI/VH/AH. T/W called pt's mother, Danielle, to obtain collateral; waiting senior construction manager back. Start: Haldol 5mg PO BID and Ativan 0.5mg PO BID 07/03: Patient continues to present labile and disorganized. Demanding to be discharged; educated that she is on a section 12B. 12B up on 07/05/24. Delusional, paranoid, anxious. Rapid and pressured speech. Patient stated, I'm not supposed to be here. I'm not suicidal. Call the certified nurse practitioner and they will tell you. I've been telling people about the holograms for years. They want my money from an inheritance from my third cousin. My family from [place] and [place] are coming. I don't have their numbers for you to talk to them. You can call my mom but it won't be my mom because they intercept the calls and act like her . T/W reviewed risks/benefits of Depakote; pt agreed to trial. denies SI/HI/VH/AH. Start: Depakote 250mg PO BID T/W spoke to pt's mother with pt's verbal permission. Pt's mother, Danielle, reports she is considering Section 35'ing pt tomorrow. She reports they do not have any family in [facility] or [facility] and that information is not accurate. Danielle states she is considering visiting patient tomorrow. 07/04 continue tx. 07/05: Active on unit, pt presents calmer and more organized. 12b up today; pt agreed to stay longer d/t feeling benefit of medication. Pt signed CV, followed by 3 day notice. 3 day up on 07/10/24. Pt continues paranoid and delusional; pt stated, I'm going to move with my partner to [place]. I don't know why my mom said we don't have family in [facility] or [facility] because we do . denies SI/HI/VH/AH. Patient educated on: diagnosis, medication risk/benefits and therapeutic strategies Reason for continued inpatient stay Substantial Risk for: med/psych decompensation Time Spent With Patient Time: Total time managing care of this patient today _20___ minutes.
[2024-07-05] MEDS: Nicotine Polacrilex 2 MG GUM 4 MG BUCCAL ×2 (12:52→20:17)
[2024-07-05] MEDS: hydrOXYzine HCL 25 MG TABLET PO ×2 (12:52→20:17)
[2024-07-05] MEDS: OLANZapine 10 MG TABLET PO (17:22)
[2024-07-05 20:00] VITALS: BP 108/62; PULSE 75; RESP 16; TEMP 36.6; O2SAT 96
[2024-07-05] MEDS: traZODone HCL 50 MG TABLET PO (20:17)
[2024-07-06] MEDS: hydrOXYzine HCL 25 MG TABLET PO ×2 (05:21→18:03)
[2024-07-06 07:35] VITALS: BP 105/70; PULSE 76; RESP 14; TEMP 36.4; O2SAT 98
[2024-07-06] MEDS: methADONE HCl 20 MG/2 ML ORAL.CONC 150 MG PO (08:01)
[2024-07-06] MEDS: Nicotine 21 MG PATCH.TD24 TRANSDERMA (08:27)
[2024-07-06] MEDS: LORazepam 0.5 MG TABLET PO ×2 (08:29→20:18)
[2024-07-06] MEDS: Divalproex Sodium 250 MG TABLET.DR PO ×2 (08:30→20:19)
[2024-07-06] MEDS: HaloperidoL 5 MG TABLET PO ×2 (08:30→20:19)
[2024-07-06 08:50] LABS: Ammonia 38 umol/L (13-55)
[2024-07-06] MEDS: Nicotine Polacrilex 2 MG GUM 4 MG BUCCAL ×3 (08:55→18:07)
--- NOTE | 2024-07-06 08:55 | HO.PSYCHPN ---
Subjective Subjective Date of Service: 07/06/24 Reason For Visit: Crisis Subjective Notes: 3 Day Interim History: Active on unit, attending groups. medication compliant. 3 day up on 07/10/24. Patient reports feeling good ; pt stated, I'm not feeling as anxious or depressed. I'm not worried about holograms or people jumping into other peoples bodies. I feel stupid for thinking that. I know that wasn't true . denies SI/HI/VH/AH. Depakote level 24.3 on 07/06/24. Medication Compliance: Yes Side effects from medications: No Attending Groups: Yes Review of Systems Constitutional: Reports as per HPI Eyes: Reports as per HPI Reports as per HPI Cardiovascular: Reports as per HPI Respiratory: Reports as per HPI Gastrointestinal: Reports as per HPI Musculoskeletal: Reports as per HPI Skin/Breast: Reports as per HPI Reports as per HPI Psychiatric: Reports as per HPI Endocrine: Reports as per HPI Hematologic/Lymphatic: Reports as per HPI Allergic/Immunologic: Reports as per HPI Mental Status Exam Mental Status Exam Narrative: Pt is alert and oriented; behavior is cooperative and calm; dressed in casual attire; mood is described as good ; eye contact appropriate; Speech is normal rate, volume and not pressured; thought process is organized; Thought content is on discharge; denies SI/HI/VH/AH. Diagnostics Vital Signs (24Hr): Vital Signs - 24 hr 07/05/24 20:00 07/06/24 07:35 Temperature 97.8 F 97.6 F Pulse Rate 75 76 Respiratory Rate 16 14 Blood Pressure 108/62 105/70 Pulse Oximetry 96 98 Oxygen Delivery Method Room Air Room Air BMI result Body Mass Index 22.6 Labs 06/29/24 01:17 07/04/24 08:07 Labs: Laboratory Results - last 48 hr 07/04/24 07/06/24 08:07 08:24 Sodium 139 Potassium 4.3 D Chloride 106 Carbon Dioxide 25 Anion Gap 12 BUN 11 Creatinine 0.75 Estim Creat Clear Calc 84.7 Estimated GFR > 60 Fasting Glucose 105 H Calcium 8.5 D Total Bilirubin 0.2 AST 45 H ALT 55 H Alkaline Phosphatase 54 Ammonia 38 Total Protein 6.4 L Albumin 3.9 Triglycerides 185 H Cholesterol 142 LDL Cholesterol, Calc 64 HDL Cholesterol 41 Medications Medications Current Medications Acetaminophen (Acetaminophen 325 Mg Tablet) 650 mg PO Q6H PRN PRN Reason: Headache/Pain Mild Scale (1-3) Al Hydroxide/Mg Hydroxide (Magnesium Hydrox/Alum Hydrox 30 Ml Oral.Susp) 30 ml PO Q6H PRN PRN Reason: Heartburn/Nausea Divalproex Sodium (Divalproex Sodium 250 Mg Tablet.Dr) 250 mg PO BID [facility] Last Admin: 07/06/24 08:30 Dose: 250 mg Haloperidol (Haloperidol 5 Mg Tablet) 5 mg PO BID [facility] Last Admin: 07/06/24 08:30 Dose: 5 mg Hydroxyzine HCl (Hydroxyzine Hcl 25 Mg Tablet) 25 mg PO Q6H PRN PRN Reason: Anxiety Last Admin: 07/06/24 05:21 Dose: 25 mg Lorazepam (Lorazepam 0.5 Mg Tablet) 0.5 mg PO BID [facility] Last Admin: 07/06/24 08:29 Dose: 0.5 mg Magnesium Hydroxide (Milk Of Magnesia 30 Ml Oral.Susp) 30 ml PO DAILY PRN PRN Reason: Constipation Last Admin: 07/01/24 20:54 Dose: 30 ml Methadone HCl (Methadone Hcl 20 Mg/2 Ml Oral.Conc) 150 mg PO DAILY [facility] Last Admin: 07/06/24 08:01 Dose: 150 mg Nicotine (Nicotine 21 Mg Patch.Td24) 21 mg TRANSDERMA DAILY [facility] Last Admin: 07/06/24 08:27 Dose: 21 mg Nicotine Polacrilex (Nicotine Polacrilex 2 Mg Gum) 4 mg BUCCAL Q2H PRN PRN Reason: Nicotine Cravings Last Admin: 07/06/24 08:55 Dose: 4 mg Olanzapine (Olanzapine 10 Mg Tablet) 10 mg PO Q4H PRN PRN Reason: agitation Last Admin: 07/05/24 17:22 Dose: 10 mg Trazodone HCl (Trazodone Hcl 50 Mg Tablet) 50 mg PO BEDTIME MRX1 PRN PRN Reason: Insomnia Last Admin: 07/05/24 20:17 Dose: 50 mg Allergies Allergies Allergy/AdvReac Type Severity Reaction Status Date / Time No Known Allergies Allergy Verified 06/28/24 23:45 [No Known Allergies*] Assessment & Plan Assessment & Plan (1) Schizophrenia: Status: Acute Code(s): F20.9 - Schizophrenia, unspecified (2) Opioid use disorder: Status: Acute Code(s): F11.90 - Opioid use, unspecified, uncomplicated (3) Cocaine use disorder: Status: Acute Code(s): F14.10 - Cocaine abuse, uncomplicated Plan Patient is a 39-year-old female with of PTSD, opioid use d/o, cocaine use d/o, who was brought in by ambulance due to exhibiting paranoia delusional and responding to internal stimuli. Plan: 12 b 5 minute safety checks Continue methadone dose 07/01 continue current medications, has required prn antipsychotic due to paranoia. 07/03: Patient presents labile and disorganized. Demanding to be discharged; educated that she is on a section 12B. 12B up on 07/05/24. Delusional, paranoid, anxious. Rapid and pressured speech. Patient stated, I was put here wrongfully. I have been cyber-bullied for 6 years. In January they killed me and put me in a hologram. It's hard to explain. I never said I was going to kill myself. I thought my boyfriend was going to kill me but it was not him; it's Nellie who was inside of his body. I don't want to say too much. You know the movies where you can hope to someone's body, that is what they are doing. I would never hurt any of them. I would reported to the Feds if they try to hurt me . T/W reviewed risks/benefits of Haldol and ativan; pt agreed to taking medications while hospitalized. She denies SI/HI/VH/AH. T/W called pt's mother, Danielle, to obtain collateral; waiting production dispatcher back. Start: Haldol 5mg PO BID and Ativan 0.5mg PO BID 07/03: Patient continues to present labile and disorganized. Demanding to be discharged; educated that she is on a section 12B. 12B up on 07/05/24. Delusional, paranoid, anxious. Rapid and pressured speech. Patient stated, I'm not supposed to be here. I'm not suicidal. Call the butadiene converter operator and they will tell you. I've been telling people about the holograms for years. They want my money from an inheritance from my third cousin. My family from [place] and [place] are coming. I don't have their numbers for you to talk to them. You can call my mom but it won't be my mom because they intercept the calls and act like her . T/W reviewed risks/benefits of Depakote; pt agreed to trial. denies SI/HI/VH/AH. Start: Depakote 250mg PO BID T/W spoke to pt's mother with pt's verbal permission. Pt's mother, Danielle, reports she is considering Section 35'ing pt tomorrow. She reports they do not have any family in [facility] or [facility] and that information is not accurate. Danielle states she is considering visiting patient tomorrow. 07/04 continue tx. 07/05: Active on unit, pt presents calmer and more organized. 12b up today; pt agreed to stay longer d/t feeling benefit of medication. Pt signed CV, followed by 3 day notice. 3 day up on 07/10/24. Pt continues paranoid and delusional; pt stated, I'm going to move with my partner to [place]. I don't know why my mom said we don't have family in [facility] or [facility] because we do . denies SI/HI/VH/AH. 07/06: Active on unit, attending groups. medication compliant. 3 day up on 07/10/24. Patient reports feeling good ; pt stated, I'm not feeling as anxious or depressed. I'm not worried about holograms or people jumping into other peoples bodies. I feel stupid for thinking that. I know that wasn't true . denies SI/HI/VH/AH. Depakote level 24.3 on 07/06/24. Patient educated on: diagnosis and medication risk/benefits Reason for continued inpatient stay Substantial Risk for: med/psych decompensation Time Spent With Patient Time: Total time managing care of this patient today _20___ minutes.
[2024-07-06 08:56] LABS: Valproate 24.3 mcg/mL (50.0-100.0)
[2024-07-06 09:00] LABS: Alanine Aminotransferase 55 U/L (0-31); Albumin Level 3.7 g/dL (3.5-5.0); Alkaline Phosphatase 57 U/L (39-117); Aspartate Amino Transferase 41 U/L (5-31); Bilirubin Direct < 0.2 mg/dL (0.0-0.5); Bilirubin Total 0.2 mg/dL (0.0-1.0)
[2024-07-06] MEDS: OLANZapine 10 MG TABLET PO (14:37)
[2024-07-06 20:00] VITALS: BP 112/74; PULSE 72; RESP 14; TEMP 37.2; O2SAT 98
[2024-07-07] MEDS: hydrOXYzine HCL 25 MG TABLET PO ×3 (05:48→20:14)
[2024-07-07 07:20] VITALS: BP 101/67; PULSE 70; RESP 16; TEMP 36.5; O2SAT 98
[2024-07-07] MEDS: methADONE HCl 20 MG/2 ML ORAL.CONC 150 MG PO (07:59)
[2024-07-07] MEDS: Divalproex Sodium 250 MG TABLET.DR PO ×2 (08:22→20:14)
[2024-07-07] MEDS: LORazepam 0.5 MG TABLET PO ×2 (08:22→20:14)
[2024-07-07] MEDS: HaloperidoL 5 MG TABLET PO ×2 (08:22→20:14)
--- NOTE | 2024-07-07 08:24 | HO.PSYCHPN ---
Subjective Subjective Date of Service: 07/07/24 Reason For Visit: Crisis Subjective Notes: Conditional Voluntary and 3 Day Interim History: The nursing staff reported that the patient signed a 3 day notice that it up on July 10. She has attended to groups looks better she wants to be discharged on Tuesday. Depakote level is quite low, she has used p.r.n. Zyprexa. On interview the patient reported that she is doing much better and she wants to go back home. Mental Status Exam Mental Status Exam Patient Appearance: Well Grooomed Patient Orientation: Person and Situation Level of Consciousness: Awake and Appropriate Patient Behavior: Guarded Mood Description: Calm Affect Description: Constricted Patient Cognition Impaired: Yes Ability to Follow Directions: Good Speech Pattern: Clear Hallucinations: None Delusions: Ideas of Reference Thought Process: Distracted Thought Content: positive for Circumstantial Judgement: Fair Diagnostics Vital Signs (24Hr): Vital Signs - 24 hr 07/06/24 20:00 07/07/24 07:20 Temperature 98.9 F 97.7 F Pulse Rate 72 70 Respiratory Rate 14 16 Blood Pressure 112/74 101/67 Pulse Oximetry 98 98 Oxygen Delivery Method Room Air BMI result Body Mass Index 22.6 Labs 06/29/24 01:17 07/04/24 08:07 Labs: Laboratory Results - last 48 hr 07/06/24 08:24 Total Bilirubin 0.2 Direct Bilirubin < 0.2 AST 41 H ALT 55 H Alkaline Phosphatase 57 Ammonia 38 Total Protein 6.0 L Albumin 3.7 Valproic Acid 24.3 L Medications Medications Current Medications Acetaminophen (Acetaminophen 325 Mg Tablet) 650 mg PO Q6H PRN PRN Reason: Headache/Pain Mild Scale (1-3) Al Hydroxide/Mg Hydroxide (Magnesium Hydrox/Alum Hydrox 30 Ml Oral.Susp) 30 ml PO Q6H PRN PRN Reason: Heartburn/Nausea Divalproex Sodium (Divalproex Sodium 250 Mg Tablet.Dr) 250 mg PO BID [facility] Last Admin: 07/07/24 08:22 Dose: 250 mg Haloperidol (Haloperidol 5 Mg Tablet) 5 mg PO BID [facility] Last Admin: 07/07/24 08:22 Dose: 5 mg Hydroxyzine HCl (Hydroxyzine Hcl 25 Mg Tablet) 25 mg PO Q6H PRN PRN Reason: Anxiety Last Admin: 07/07/24 05:48 Dose: 25 mg Lorazepam (Lorazepam 0.5 Mg Tablet) 0.5 mg PO BID [facility] Last Admin: 07/07/24 08:22 Dose: 0.5 mg Magnesium Hydroxide (Milk Of Magnesia 30 Ml Oral.Susp) 30 ml PO DAILY PRN PRN Reason: Constipation Last Admin: 07/01/24 20:54 Dose: 30 ml Methadone HCl (Methadone Hcl 20 Mg/2 Ml Oral.Conc) 150 mg PO DAILY@0800 [facility] Last Admin: 07/07/24 07:59 Dose: 150 mg Nicotine (Nicotine 21 Mg Patch.Td24) 21 mg TRANSDERMA DAILY [facility] Last Admin: 07/06/24 08:27 Dose: 21 mg Nicotine Polacrilex (Nicotine Polacrilex 2 Mg Gum) 4 mg BUCCAL Q2H PRN PRN Reason: Nicotine Cravings Last Admin: 07/06/24 18:07 Dose: 4 mg Olanzapine (Olanzapine 10 Mg Tablet) 10 mg PO Q4H PRN PRN Reason: agitation Last Admin: 07/06/24 14:37 Dose: 10 mg Trazodone HCl (Trazodone Hcl 50 Mg Tablet) 50 mg PO BEDTIME MRX1 PRN PRN Reason: Insomnia Last Admin: 07/05/24 20:17 Dose: 50 mg Allergies Allergies Allergy/AdvReac Type Severity Reaction Status Date / Time No Known Allergies Allergy Verified 06/28/24 23:45 [No Known Allergies*] Assessment & Plan Assessment & Plan (1) Schizophrenia: Status: Acute Code(s): F20.9 - Schizophrenia, unspecified (2) Opioid use disorder: Status: Acute Code(s): F11.90 - Opioid use, unspecified, uncomplicated (3) Cocaine use disorder: Status: Acute Code(s): F14.10 - Cocaine abuse, uncomplicated Plan Patient is a 39-year-old female with of PTSD, opioid use d/o, cocaine use d/o, who was brought in by ambulance due to exhibiting paranoia delusional and responding to internal stimuli. Plan: 12 b 5 minute safety checks Continue methadone dose 07/01 continue current medications, has required prn antipsychotic due to paranoia. 07/03: Patient presents labile and disorganized. Demanding to be discharged; educated that she is on a section 12B. 12B up on 07/05/24. Delusional, paranoid, anxious. Rapid and pressured speech. Patient stated, I was put here wrongfully. I have been cyber-bullied for 6 years. In January they killed me and put me in a hologram. It's hard to explain. I never said I was going to kill myself. I thought my boyfriend was going to kill me but it was not him; it's Nellie who was inside of his body. I don't want to say too much. You know the movies where you can hope to someone's body, that is what they are doing. I would never hurt any of them. I would reported to the Feds if they try to hurt me . T/W reviewed risks/benefits of Haldol and ativan; pt agreed to taking medications while hospitalized. She denies SI/HI/VH/AH. T/W called pt's mother, Danielle, to obtain collateral; waiting quality control back. Start: Haldol 5mg PO BID and Ativan 0.5mg PO BID 07/03: Patient continues to present labile and disorganized. Demanding to be discharged; educated that she is on a section 12B. 12B up on 07/05/24. Delusional, paranoid, anxious. Rapid and pressured speech. Patient stated, I'm not supposed to be here. I'm not suicidal. Call the steward/stewardess banquet and they will tell you. I've been telling people about the holograms for years. They want my money from an inheritance from my third cousin. My family from [place] and [place] are coming. I don't have their numbers for you to talk to them. You can call my mom but it won't be my mom because they intercept the calls and act like her . T/W reviewed risks/benefits of Depakote; pt agreed to trial. denies SI/HI/VH/AH. Start: Depakote 250mg PO BID T/W spoke to pt's mother with pt's verbal permission. Pt's mother, Danielle, reports she is considering Section 35'ing pt tomorrow. She reports they do not have any family in [facility] or [facility] and that information is not accurate. Danielle states she is considering visiting patient tomorrow. 07/04 continue tx. 07/05: Active on unit, pt presents calmer and more organized. 12b up today; pt agreed to stay longer d/t feeling benefit of medication. Pt signed CV, followed by 3 day notice. 3 day up on 07/10/24. Pt continues paranoid and delusional; pt stated, I'm going to move with my partner to [place]. I don't know why my mom said we don't have family in [facility] or [facility] because we do . denies SI/HI/VH/AH. 07/06: Active on unit, attending groups. medication compliant. 3 day up on 07/10/24. Patient reports feeling good ; pt stated, I'm not feeling as anxious or depressed. I'm not worried about holograms or people jumping into other peoples bodies. I feel stupid for thinking that. I know that wasn't true . denies SI/HI/VH/AH. Depakote level 24.3 on 07/06/24. 07/07 no changes in her mental status, attending to groups. She wants to leave as soon as possible. Reason for continued inpatient stay Substantial Risk for: inability to function, rapid decompensation and med/psych decompensation Time Spent With Patient Time: Total time managing care of this patient today __20__ minutes.
[2024-07-07] MEDS: Nicotine Polacrilex 2 MG GUM 4 MG BUCCAL ×3 (10:02→21:50)
[2024-07-07] MEDS: Nicotine 21 MG PATCH.TD24 TRANSDERMA (10:50)
[2024-07-07] MEDS: OLANZapine 10 MG TABLET PO ×2 (11:12→17:28)
[2024-07-07 20:00] VITALS: BP 120/69; PULSE 76; RESP 16; TEMP 36.5; O2SAT 95
[2024-07-07] MEDS: traZODone HCL 50 MG TABLET PO ×2 (20:20→21:32)
[2024-07-08] MEDS: hydrOXYzine HCL 25 MG TABLET PO ×2 (02:37→11:38)
[2024-07-08 07:30] VITALS: BP 168/62; PULSE 72; RESP 16; TEMP 36.5; O2SAT 98
[2024-07-08] MEDS: methADONE HCl 20 MG/2 ML ORAL.CONC 150 MG PO (07:37)
--- NOTE | 2024-07-08 07:53 | P.PNPSI_ITS ---
Subjective Subjective Date of Service: 07/08/24 Reason For Visit: Crisis Subjective Notes: Conditional Voluntary and 3 Day Interim History: The nursing staff reported the patient had been eating well at night, she requested Ativan at night. On interview the patient denies new symptoms, she signed a 3 day notice and she wants to leave the unit soon. She has requested Ativan at night. Overall, she states that she is doing fine even though she looks very anxious and restless. Mental Status Exam Mental Status Exam Patient Appearance: Well Grooomed and Appropriate Patient Orientation: Person and Situation Level of Consciousness: Awake Patient Behavior: Guarded and Passive Mood Description: Calm Affect Description: Constricted Patient Cognition Impaired: Yes Ability to Follow Directions: Good Speech Pattern: Clear Hallucinations: None Delusions: Ideas of Reference Thought Process: Distracted Thought Content: positive for [place] and positive for Poverty of Content Judgement: Fair Diagnostics Vital Signs (24Hr): Vital Signs - 24 hr 07/07/24 20:00 Temperature 97.7 F Pulse Rate 76 Respiratory Rate 16 Blood Pressure 120/69 Pulse Oximetry 95 Oxygen Delivery Method Room Air BMI result Body Mass Index 22.6 Labs 06/29/24 01:17 07/04/24 08:07 Labs: Laboratory Results - last 48 hr 07/06/24 08:24 Total Bilirubin 0.2 Direct Bilirubin < 0.2 AST 41 H ALT 55 H Alkaline Phosphatase 57 Ammonia 38 Total Protein 6.0 L Albumin 3.7 Valproic Acid 24.3 L Medications Medications Current Medications Acetaminophen (Acetaminophen 325 Mg Tablet) 650 mg PO Q6H PRN PRN Reason: Headache/Pain Mild Scale (1-3) Al Hydroxide/Mg Hydroxide (Magnesium Hydrox/Alum Hydrox 30 Ml Oral.Susp) 30 ml PO Q6H PRN PRN Reason: Heartburn/Nausea Divalproex Sodium (Divalproex Sodium 250 Mg Tablet.Dr) 250 mg PO BID [facility] Last Admin: 07/07/24 20:14 Dose: 250 mg Haloperidol (Haloperidol 5 Mg Tablet) 5 mg PO BID [facility] Last Admin: 07/07/24 20:14 Dose: 5 mg Hydroxyzine HCl (Hydroxyzine Hcl 25 Mg Tablet) 25 mg PO Q6H PRN PRN Reason: Anxiety Last Admin: 07/08/24 02:37 Dose: 25 mg Lorazepam (Lorazepam 0.5 Mg Tablet) 0.5 mg PO BID [facility] Last Admin: 07/07/24 20:14 Dose: 0.5 mg Magnesium Hydroxide (Milk Of Magnesia 30 Ml Oral.Susp) 30 ml PO DAILY PRN PRN Reason: Constipation Last Admin: 07/01/24 20:54 Dose: 30 ml Methadone HCl (Methadone Hcl 20 Mg/2 Ml Oral.Conc) 150 mg PO DAILY@0800 [facility] Last Admin: 07/08/24 07:37 Dose: 150 mg Nicotine (Nicotine 21 Mg Patch.Td24) 21 mg TRANSDERMA DAILY [facility] Last Admin: 07/07/24 10:50 Dose: 21 mg Nicotine Polacrilex (Nicotine Polacrilex 2 Mg Gum) 4 mg BUCCAL Q2H PRN PRN Reason: Nicotine Cravings Last Admin: 07/07/24 21:50 Dose: 4 mg Olanzapine (Olanzapine 10 Mg Tablet) 10 mg PO Q4H PRN PRN Reason: agitation Last Admin: 07/07/24 17:28 Dose: 10 mg Trazodone HCl (Trazodone Hcl 50 Mg Tablet) 50 mg PO BEDTIME MRX1 PRN PRN Reason: Insomnia Last Admin: 07/07/24 21:32 Dose: 50 mg Allergies Allergies Allergy/AdvReac Type Severity Reaction Status Date / Time No Known Allergies Allergy Verified 06/28/24 23:45 [No Known Allergies*] Assessment & Plan Assessment & Plan (1) Schizophrenia: Status: Acute Code(s): F20.9 - Schizophrenia, unspecified (2) Opioid use disorder: Status: Acute Code(s): F11.90 - Opioid use, unspecified, uncomplicated (3) Cocaine use disorder: Status: Acute Code(s): F14.10 - Cocaine abuse, uncomplicated Plan Patient is a 39-year-old female with of PTSD, opioid use d/o, cocaine use d/o, who was brought in by ambulance due to exhibiting paranoia delusional and responding to internal stimuli. Plan: 12 b 5 minute safety checks Continue methadone dose 07/01 continue current medications, has required prn antipsychotic due to paranoia. 07/03: Patient presents labile and disorganized. Demanding to be discharged; educated that she is on a section 12B. 12B up on 07/05/24. Delusional, paranoid, anxious. Rapid and pressured speech. Patient stated, I was put here wrongfully. I have been cyber-bullied for 6 years. In January they killed me and put me in a hologram. It's hard to explain. I never said I was going to kill myself. I thought my boyfriend was going to kill me but it was not him; it's Nellie who was inside of his body. I don't want to say too much. You know the movies where you can hope to someone's body, that is what they are doing. I would never hurt any of them. I would reported to the Feds if they try to hurt me . T/W reviewed risks/benefits of Haldol and ativan; pt agreed to taking medications while hospitalized. She denies SI/HI/VH/AH. T/W called pt's mother, Danielle, to obtain collateral; waiting crop nutrition scientist back. Start: Haldol 5mg PO BID and Ativan 0.5mg PO BID 07/03: Patient continues to present labile and disorganized. Demanding to be discharged; educated that she is on a section 12B. 12B up on 07/05/24. Delusional, paranoid, anxious. Rapid and pressured speech. Patient stated, I'm not supposed to be here. I'm not suicidal. Call the certified phlebotomist and they will tell you. I've been telling people about the holograms for years. They want my money from an inheritance from my third cousin. My family from [place] and [place] are coming. I don't have their numbers for you to talk to them. You can call my mom but it won't be my mom because they intercept the calls and act like her . T/W reviewed risks/benefits of Depakote; pt agreed to trial. denies SI/HI/VH/AH. Start: Depakote 250mg PO BID T/W spoke to pt's mother with pt's verbal permission. Pt's mother, Danielle, reports she is considering Section 35'ing pt tomorrow. She reports they do not have any family in [facility] or [place] and that information is not accurate. Danielle states she is considering visiting patient tomorrow. 07/04 continue tx. 07/05: Active on unit, pt presents calmer and more organized. 12b up today; pt agreed to stay longer d/t feeling benefit of medication. Pt signed CV, followed by 3 day notice. 3 day up on 07/10/24. Pt continues paranoid and delusional; pt stated, I'm going to move with my partner to [place]. I don't know why my mom said we don't have family in [facility] or [facility] because we do . denies SI/HI/VH/AH. 07/06: Active on unit, attending groups. medication compliant. 3 day up on 07/10/24. Patient reports feeling good ; pt stated, I'm not feeling as anxious or depressed. I'm not worried about holograms or people jumping into other peoples bodies. I feel stupid for thinking that. I know that wasn't true . denies SI/HI/VH/AH. Depakote level 24.3 on 07/06/24. 07/07 no changes in her mental status, attending to groups. She wants to leave as soon as possible. 07/08 continue same treatment. We added a p.r.n. of Ativan 0.5 night Reason for continued inpatient stay Substantial Risk for: inability to function, rapid decompensation and med/psych decompensation Time Spent With Patient Time: Total time managing care of this patient today __20__ minutes.
[2024-07-08] MEDS: Divalproex Sodium 250 MG TABLET.DR PO ×2 (08:23→20:09)
[2024-07-08] MEDS: HaloperidoL 5 MG TABLET PO ×2 (08:23→20:08)
[2024-07-08] MEDS: LORazepam 0.5 MG TABLET PO ×2 (08:23→20:08)
[2024-07-08] MEDS: Acetaminophen 325 MG TABLET 650 MG PO (16:44)
[2024-07-08] MEDS: Nicotine Polacrilex 2 MG GUM 4 MG BUCCAL ×2 (17:18→20:33)
[2024-07-08] MEDS: Capsaicin 0.025% Cream 60 GM TUBE 1 APPL TOPICAL (19:21)
[2024-07-08 19:50] VITALS: BP 108/73; PULSE 85; RESP 16; TEMP 36.9; O2SAT 95
[2024-07-08] MEDS: traZODone HCL 50 MG TABLET PO ×2 (20:09→21:12)
[2024-07-08] MEDS: Milk of Magnesia 30 ML ORAL.SUSP PO (22:50)
[2024-07-09] MEDS: hydrOXYzine HCL 25 MG TABLET PO (03:52)
[2024-07-09] MEDS: Acetaminophen 325 MG TABLET 650 MG PO (03:53)
[2024-07-09 07:30] VITALS: BP 128/74; PULSE 92; RESP 18; TEMP 36.6; O2SAT 97
[2024-07-09] MEDS: methADONE HCl 20 MG/2 ML ORAL.CONC 150 MG PO (07:45)
[2024-07-09] MEDS: Divalproex Sodium 250 MG TABLET.DR PO (08:04)
[2024-07-09] MEDS: Nicotine 21 MG PATCH.TD24 TRANSDERMA (08:04)
[2024-07-09] MEDS: LORazepam 0.5 MG TABLET PO (08:04)
[2024-07-09] MEDS: HaloperidoL 5 MG TABLET PO (08:04)
[2024-07-09] MEDS: Nicotine Polacrilex 2 MG GUM 4 MG BUCCAL (08:31)
[2024-07-09] MEDS: Naloxone HCl Nasal TAKE HOME 4 MG SPRAY 8 MG NOSTRILALT (10:18)
--- NOTE | 2024-07-09 10:24 | PM.PSYDC ---
DS: Providers Provider Date of Service: 07/09/24 Date of admission: 06/29/24 11:29 Date of discharge: 07/09/24 Primary care physician: [facility] Admitting clinician: Slime Barajas Attending physician on admission: Rich Gonzalez Attending physician on discharge: Aman Frazier Discharging clinician: Slime Barajas DS: Diagnosis Discharge Diagnosis (1) Schizophrenia: Status: Acute (2) Opioid use disorder: Status: Acute (3) Cocaine use disorder: Status: Acute DS: Medications Discharge Medications Home Medications: Home Medications ?Medication ?Instructions ?Recorded ?Confirmed methadone 150 mg PO DAILY 06/28/24 06/29/24 Previous Rx's ?Medication ?Instructions ?Recorded benztropine 0.5 mg tablet 0.5 mg PO BEDTIME 30 days #30 tabs 07/09/24 divalproex 250 mg tablet,delayed 250 mg PO BID 30 days #60 tabs 07/09/24 release haloperidol 5 mg tablet 5 mg PO BID 30 days #60 tabs 07/09/24 hydroxyzine HCl 25 mg tablet 25 mg PO BID PRN Anxiety 30 days 07/09/24 #60 tabs Mental Status Exam Mental Status Exam Narrative: Pt is alert and oriented; behavior is cooperative and calm; dressed in casual attire; mood is described as good ; eye contact appropriate; Speech is normal rate, volume and not pressured; thought process is organized; Thought content is on discharge; denies SI/HI/VH/AH. Data Data Completed and Pending Completed studies during hospitalization [Text1]: 07/04/24 07/06/24 08:07 08:24 Sodium 139 Potassium 4.3 D Chloride 106 Carbon Dioxide 25 Anion Gap 12 BUN 11 Creatinine 0.75 Estim Creat Clear Calc 84.7 Estimated GFR > 60 Fasting Glucose 105 H Calcium 8.5 D Total Bilirubin 0.2 0.2 Direct Bilirubin < 0.2 AST 45 H 41 H ALT 55 H 55 H Alkaline Phosphatase 54 57 Ammonia 38 Total Protein 6.4 L 6.0 L Albumin 3.9 3.7 Triglycerides 185 H Cholesterol 142 LDL Cholesterol, Calc 64 HDL Cholesterol 41 Valproic Acid 24.3 L DS: Summary Hospital Course Hospital Course: Patient is a 39-year-old female with of PTSD, opioid use d/o, cocaine use d/o, who was brought in by ambulance due to exhibiting paranoia delusional and responding to internal stimuli. Per crisis report, patient is living in a camp site in [place] and was brought in by ambulance due to her boyfriend calling EMS. Patient was loudly yelling and self arguing regarding her organs in holograms. She denies SI/HI. She claimed that she has a twin and the ED had the wrong person. Per patient's mother, patient has struggled with substance abuse since her 20s. She does not exhibit signs and symptoms of psychosis at baseline. Patient reports she has providers through [facility] in [place]. Patient reports treatment at [facility] and history of detox admissions. She denies history of inpatient psychiatric hospitalization. U tox positive for cocaine, fentanyl, methadone, THC. During admission assessment, patient presents with flight of ideas, tangential, paranoid and delusional. Rapid and pressured speech. Disorganized; patient stated, the girl that was cyber bullying me is acting and is jumping in bodies. The holograms are a medical trial that are happening on me and my boyfriend. It is from [facility]. She can jump into my boyfriend's body. I need to get my son. I have been dealing with this for 6 years. People are going to him because they are jealous. They put a documentary of me on Facebook . Patient reports using crack/cocaine daily, heroin daily and marijuana daily. Patient requesting to be discharged. Poor insight/judgment. Patient is a 39-year-old female with of PTSD, opioid use d/o, cocaine use d/o, who was brought in by ambulance due to exhibiting paranoia delusional and responding to internal stimuli. Plan: 12 b 5 minute safety checks Continue methadone dose Start: Risperdal 1 mg p.o. b.i.d. Obtain collateral Discharge planning continue current medications, has required prn antipsychotic due to paranoia. Patient presents labile and disorganized. Demanding to be discharged; educated that she is on a section 12B. 12B up on 07/05/24. Delusional, paranoid, anxious. Rapid and pressured speech. Patient stated, I was put here wrongfully. I have been cyber-bullied for 6 years. In January they killed me and put me in a hologram. It's hard to explain. I never said I was going to kill myself. I thought my boyfriend was going to kill me but it was not him; it's Nellie who was inside of his body. I don't want to say too much. You know the movies where you can hope to someone's body, that is what they are doing. I would never hurt any of them. I would reported to the Feds if they try to hurt me . T/W reviewed risks/benefits of Haldol and ativan; pt agreed to taking medications while hospitalized. She denies SI/HI/VH/AH. T/W called pt's mother, Danielle, to obtain collateral; waiting dairy nutrition specialist back. Start: Haldol 5mg PO BID and Ativan 0.5mg PO BID Patient continues to present labile and disorganized. Demanding to be discharged; educated that she is on a section 12B. 12B up on 07/05/24. Delusional, paranoid, anxious. Rapid and pressured speech. Patient stated, I'm not supposed to be here. I'm not suicidal. Call the purchasing manager/sales and they will tell you. I've been telling people about the holograms for years. They want my money from an inheritance from my third cousin. My family from [place] and [place] are coming. I don't have their numbers for you to talk to them. You can call my mom but it won't be my mom because they intercept the calls and act like her . T/W reviewed risks/benefits of Depakote; pt agreed to trial. denies SI/HI/VH/AH. Start: Depakote 250mg PO BID T/W spoke to pt's mother with pt's verbal permission. Pt's mother, Danielle, reports she is considering Section 35'ing pt tomorrow. She reports they do not have any family in [facility] or [facility] and that information is not accurate. Danielle states she is considering visiting patient tomorrow. Active on unit, pt presents calmer and more organized. 12b up today; pt agreed to stay longer d/t feeling benefit of medication. Pt signed CV, followed by 3 day notice. 3 day up on 07/10/24. Pt continues paranoid and delusional; pt stated, I'm going to move with my partner to [place]. I don't know why my mom said we don't have family in [place] or [place] because we do . denies SI/HI/VH/AH. Active on unit, attending groups. medication compliant. 3 day up on 07/10/24. Patient reports feeling good ; pt stated, I'm not feeling as anxious or depressed. I'm not worried about holograms or people jumping into other peoples bodies. I feel stupid for thinking that. I know that wasn't true . denies SI/HI/VH/AH. Depakote level 24.3 on 07/06/24. Patient reports feeling good and ready to go back to my tent ; pt stated, I don't want to be off my meds again. It's helped me feel calm and not all over the place . per nursing, sleeping well. attending groups. pt reports she plans on following up with outpatient providers. denies SI/HI/VH/AH. Pt to be discharged home today. Time spent discussing smoking cessation with patient: 3 to 10 minutes Status at Discharge Cognitive/behavioral status at discharge: Patient was interviewed prior to discharge and found to be fully oriented and without SI or HI. Patient has insight and demonstrates good judgment in terms of wanting to pursue treatment. Patient has a safety plan that includes presenting to the closest ER or calling 911 if feeling unsafe. Functional status at discharge: independent ambulation Overall status at discharge: patient is back to baseline Time Spent with Patient Time attestation: Total time managing care of this patient today _20___ minutes. Time spent: Less than 30 minutes Discharge Plan Discharge Anticipated Discharge Date/Time: 07/09/24 11:30 Patient Disposition: Home, Self-Care Discharge Diagnosis: Schizoaffective d/o, PTSD, cocaine use d/o, opioid use d/o Referrals: [facility] [Other] - 1 Week (You have been referred to [facility] and they will be calling you with appointment. ) [facility] [Other] - 1 Week (Bring your last dose letter with you.) [facility] [Primary Care Provider] - 1 Week ([facility] has been added to patients chart. Please call [phone] to schedule your follow up appt.) Discharge Medications: New divalproex 250 mg Tablet,Delayed Release (Dr/Ec) 250 mg PO BID 30 Days Qty: 60 0RF haloperidol 5 mg Tablet 5 mg PO BID 30 Days Qty: 60 0RF hydroxyzine HCl 25 mg Tablet 25 mg PO BID PRN (Reason: Anxiety) 30 Days Qty: 60 0RF benztropine 0.5 mg tablet 0.5 mg PO BEDTIME 30 Days Qty: 30 0RF Continued methadone 150 mg PO DAILY Discharge Orders: Discharge Order (Routine); Ordered 07/09/24 Ordered By: Slime Barajas Diet: Regular diet Activity on Discharge: As tolerated Stand Alone Forms: Patient Portal Discharge page, Community Support Print Language: Namibian Care Plan Goals: Maintain mood and safe behaviors Take medications as prescribed Continue to pursue sobriety Practice coping skills Continue with outpatient providers and reach out to them as needed Health Concerns: Mood stability and behaviors Sobriety Follow up with PCP regarding obtaining Depakote levels Plan of Treatment: Follow up with your PCP, psychiatric provider and other outpatient providers regarding above concerns Take medications as prescribed Assessment: Patient was interviewed prior to discharge and found to be fully oriented and without SI or HI. Patient has insight and demonstrates good judgment in terms of wanting to pursue treatment. Patient has a safety plan that includes presenting to the closest ER or calling 911 if feeling unsafe. Discharge Date/Time: 07/09/24 10:45
== END 2024-07-09 10:45 | disposition home or self-care (01) | DRG 750 ==
LOC: HO.ED 06-29 11:00 → HO.PADLT16 06-29 12:20
PROVIDERS: Admitting Provider Registered Nurse; Emergency Provider Emergency Medicine; Responsible Provider Registered Nurse; Visit Provider Psychiatry & Neurology Psychiatry
DX: F20.9 Schizophrenia, unspecified (principal); R45.851 Suicidal ideations; F11.20 Opioid dependence, uncomplicated; F14.10 Cocaine abuse, uncomplicated; F43.10 Post-traumatic stress disorder, unspecified; F17.210 Nicotine dependence, cigarettes, uncomplicated; Z59.02 Unsheltered homelessness; Z71.6 Tobacco abuse counseling; Z79.899 Other long term (current) drug therapy
CPT/HCPCS: 36415; 80053; 80061; 80076; 80164; 80307; 81001; 81025; 82140; 85025; 93005; 99285; S9485

== ENCOUNTER → 2024-06-29 09:21 | Outpatient (BNV) | payer MEDICAID, SELFPAY | PROVIDERS: Admitting Provider Registered Nurse; Emergency Provider Emergency Medicine; Visit Provider Internal Medicine Cardiovascular Disease | DX: R94.31 Abnormal electrocardiogram [ECG] [EKG] (principal) | CPT/HCPCS: 93010 ==

== ENCOUNTER → 2024-06-29 11:29 | Outpatient (BNV) | payer OTHER, SELFPAY | PROVIDERS: Admitting Provider Registered Nurse; Emergency Provider Emergency Medicine; Responsible Provider Registered Nurse; Visit Provider Registered Nurse | DX: F20.0 Paranoid schizophrenia (principal); F14.10 Cocaine abuse, uncomplicated; F11.90 Opioid use, unspecified, uncomplicated; F43.11 Post-traumatic stress disorder, acute | CPT/HCPCS: 99231; 99232; 99233 ==

== ENCOUNTER 2024-11-30 05:32 | Inpatient (IN) | payer OTHER, SELFPAY ==
--- NOTE | 2024-11-30 | ECG_ITS ---
Test Reason : r/o prolonged qt Blood Pressure : */* mmHG Vent. Rate : 46 BPM Atrial Rate : 46 BPM P-R Int : 154 ms QRS Dur : 90 ms QT Int : 460 ms P-R-T Axes : 66 65 59 degrees QTcB Int : 402 ms Sinus bradycardia Otherwise normal ECG When compared with ECG of 29-Jun-2024 09:21, Vent. rate has decreased by 39 bpm Non-specific change in ST segment in Anterior leads T wave inversion no longer evident in Anterior leads Referred By: Florinda Salazar Electronically Signed By: DOMENICO FERRARA MD
[2024-11-30 05:47] VITALS: BP 134/71; PULSE 72; RESP 18; TEMP 37; O2SAT 98; BMI 20.7
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
--- OUTSIDE RECORDS SUMMARY | 2024-11-30 06:55 | XMS_ITS | Encounter Summary ---
Author Organization [employer] Address [address] [place] [address] Care Team Providers Care Dry Cleaning Manager Name Role Phone Anastasiia Penaloza MD Primary Care Provider [phone] Reason for Visit * Reason Comments Med Refill Encounter Details Date Type Department Care Team ([facility] st Contact Info) Description 11/02/2023 Refill [facility] [address] [place] [address] Erika Marcus MD [address] [place] [address] Nicotine use disorder Social History Tobacco Use Types Packs/Day Years Used Date Smoking Tobacco: Some Days Cigarettes Smokeless Tobacco: Never Comments:Was on patches and gum. Would like them again Alcohol Use Standard Drinks/Week Comments Never 0 (1 standard drink = 0.6 oz pur e alcohol) Depression Answer Date Recorded Patient Health Questionnaire-9 Score 18 07/07/2023 Patient Health Questionnaire-9 Score 18 07/07/2023 Last PHQ-9: Questionnaire Data Not on file 1 09/06/2022 Housing Stability Answer Date Recorded What is your housing situation today? I do not have housing (Staying with others, in a hotel, in a snf, living outside on the street, on a beach, in a car, or in a park 07/06/[address] you li ve. Do you have problems with any of the following? None of the above 07/06/2023 Food Insecurity Answer Date Recorded Within the past 12 months, y ou worried that your food would run out before you got money to buy more: Often true 07/06/2023 Within the past 12 months,th e food you bought just didn't last and you didn't have enough money to get more: Often true Transportation Answer Date Recorded In the past 12 months, has l ack of transportation kept you from medical appts, meetings, work or from getting things needed for daily living? No 07/06/2023 Utilities Answer Date Recorded In the past 12 months, has t he electric, gas, oil or water company threatened to shut off services in your home? No 07/06/2023 Depression Answer Date Recorded Patient Health Questionnaire-2 Score 6 07/07/2023 Comments Unknown Sex and Gender Information Value Date Recorded Sex Assigned at Female 06/21/2022 10:24 AM EDT Legal Sex Female 10:24 AM EDT Gender Identity Female 06/21/2022 10:24 AM EDT Sexual Orientation Straight 06/21/2022 10 :24 AM EDT documented as of this encounter Plan of Treatment Not on file documented as of this encounter Visit Diagnoses Diagnosis Nicotine use disorder Tobacco use disorder documented in this encounter Additional Health Concerns Assessment Noted Time PHQ-9 Depression Total Score: 18 023 10:28 AM EST documented as of this encounter Care Teams Dry Cleaning Manager Relationship Specialty Start Date End Date Anastasiia Penaloza MD [address] [place] [address] PCP - General Family Medicine 10/27/23 Aly Johnson MD Consulting Physician Dermatology 07/06/23 documented as of this encounter
--- OUTSIDE RECORDS SUMMARY | 2024-11-30 06:55 | XMS_ITS | Encounter Summary ---
Author Organization [employer] Address [address] [place] [address] Care Team Providers Care Cloth Folder Hand Name Role Phone Rachell Kulkarni NP Primary Care Provider [phone] Anastasiia Penaloza MD Primary Care Provider [phone] Reason for Visit * Reason Comments Med Refill Encounter Details Date Type Department Care Team ([facility] st Contact Info) Description 10/02/2023 Refill [facility] [address] [place] [address] Erika Marcus MD [address] [place], [place] [id number] Recurrent mild major depressive disorder with anxiety (CMS/HCC) Social History Tobacco Use Types Packs/Day Years [...] with others, in a hotel, in a intermediate, living outside on the street, on a [...] AM EDT documented as of this encounter Miscellaneous Notes * Telephone Encounter - Rachell Kulkarni NP - 10/04/2023 2:06 PM EST Approving, but needs appt for additional refills. documented in this encounter Plan of Treatment Not on file documented as of this encounter Visit Diagnoses Diagnosis Recurrent mild major depressive disorder with anxiety (CMS/HCC) documented in this encounter Additional Health Concerns Assessment Noted Time PHQ-9 Depression Total Score: 18 023 10:28 AM EST documented as of this encounter Care Teams Cloth Folder Hand Relationship Specialty Start Date End Date Rachell Kulkarni NP [address] [place] [address] PCP - General Family Medicine 06/30/23 10/26/23 Anastasiia Penaloza MD [address] [place] [address] PCP - General Family Medicine 10/27/23 Aly Johnson MD Consulting Physician Dermatology 07/06/23 documented as of this encounter
--- OUTSIDE RECORDS SUMMARY | 2024-11-30 06:55 | XMS_ITS | Clinical Summary ---
Author Organization [email or web address] Address [address] [facility] [address] [place] [address] Care Team Providers Care Fibrous Plasterer Name Role Phone Anastasiia Penaloza MD Primary Care Provider [phone] Allergies No known active allergies Medications * This document contains information received from the source organization and may not represent a complete record from that organization. Otezla 30 MG tablet Take 30 mg by mouth 2 times daily. 3 Active fluocinolone ([place]-Smoothe) 0.01 % external oil Apply topically. 2 Active methadone (Dolophine) 5 MG tablet take 30mg by oral route at methadone clinic Active hydrOXYzine pamoate (Vistaril) 25 MG capsuleIndicati ons:Anxiety Take 1 capsule (25 mg) by mouth every 6 (six) hours if needed for itching. 90 capsule 3 Active traZODone (Desyrel) 100 MG tablet TAKE 1 TABLET BY MOUTH AT BEDTIME 30 tablet 4 Active QUEtiapine (SEROquel) 100 MG tablet TAKE 1 TABLET BY MOUTH AT BEDTIME 30 tablet 4 Active buPROPion SR (Wellbutrin SR) 150 MG 12 hr tabletIndicatio ns:Recurrent mild major depressive disorder with anxiety (CMS/HCC) TAKE 1 TABLET BY MOUTH ONCE DAILY BEFORE BREAKFAST. DO NOT BREAK, CRUSH, DISSOLVE OR CHEW 30 tablet 4 Active nicotine (Nicoderm, Step 1) 21 MG/24HR patchIndication s:Nicotine use disorder APPLY 1 PATCH TOPICALLY TO THE SKIN IN THE MORNING *DO NOT SMOKE WHILE USING PATCH* 30 patch 4 Active nicotine polacrilex (Nicorette) 2 MG gumIndications: Nicotine use disorder CHEW 1 PIECE OF GUM EVERY 2 HOURS NEEDED FOR SMOKING CESSATION 100 each 1 4 Active Active Problems Problem Noted Date Diagnosed Date Anxiety 09/28/2023 Assessment & Plan (09/28/2023 1:21 PM EST): -very anxious presentation -medications refilled -needs to be connected with Nicotine use disorder 07/25/2023 Assessment & Plan (09/28/2023 1:24 PM EST): -smoking cessation education completed -rx for nicotine patch and gum sent to pharmacy Opioid use disorder 07/07/2023 Cannabis use disorder 07/07/2023 COVID-19 07/06/2023 07/06/2023 Poor appetite 07/06/2023 Assessment & Plan (09/28/2023 1:20 PM EST): -unstable housing situation -reports her food stamps have been revoked -referral to nutrition placed -[facility] care fast food team member in to speak with patient -actively using substances Recurrent mild major depressive disorder with an xiety 11/13/2019 07/06/2023 Assessment & Plan (09/28/2023 1:22 PM EST): -medication refilled -needs to be connected with -unable to complete visit as patient left after receiving DTA paperwork Assessment & Plan (07/08/2023 8:33 AM EST): Assessment: ?? Patient presents with symptoms of depression and anxiety. No risk for self-harm, SI, or HI. Reason for visit was to assess symptoms, provide support, and offer referrals/resources. Symptoms are on the context of homelessness, lack of support, lack of services, and substance abuse. A referral for both OP therapy and psychiatry will be completed. Patient was provided with information about [facility]. ?? At this time Lindsey Long meets criteria for Visit Diagnoses: Problem List Items Addressed This Visit ? Other ?? Recurrent mild major depressive disorder with anxiety (CMS/HCC) ?? Opioid use disorder ?? Cannabis use disorder ?? Patient ready to address current needs Interested in being connected to services. Declined substance use services ?? Strengths include resilience. Patient is in the contemplation stage. ?? PLAN: 1. Follow up with [facility]: Recommended for follow-up: During next appointment with PCP 2. Patient goal is to be connected to services 3. Behavioral Recommendations a. Continue using coping skills b. Engage in therapy and psychiatry once established c. Utilize [facility] for sooner psychiatry appointment d. Reach out to [facility] for additional support Migraine without aura, not refractory 11/13/2019 07/06/2023 Encounters Date Type Department Care Team Description 11/02/2024 Population Health Risk Score [facility] () Department [address] [id number] Provider, Population Health Generic from Last 3 Months Immunizations Name Administration Dates Next Due DTP 04/23/2010 Influenza injectable quadriv alent IIV4 with preservative 04/23/2010 Influenza injectable quadrivalent preservative f ree 06/02/2015 Tdap 03/16/2017 Social History Tobacco Use Types Packs/Day Years [...] with others, in a hotel, in a assisted, living outside on the street, on a beach, in a car, or in a park 07/08/[address] you li ve. Do you have problems with any of the following? Not on file 07/08/2024 Food Insecurity Answer Date Recorded Within the past 12 months, y ou worried that your food would run out before you got money to buy more: Often true 07/08/2024 Within the past 12 months,th e food you bought just didn't last and you didn't have enough money to get more: Not on file Transportation Answer Date Recorded In the past [...] Orientation Straight 06/21/2022 10 :24 AM EDT Last Filed Vital Signs Vital Sign Reading Time Taken Comments Blood Pressure 129/110 07/06/2023 11:06 AM EST Pulse 62 07/06/2023 11:06 AM EST Temperature 36.6 ??C (97.9 ??F) 07/06/2023 11:[address] Respiratory Rate 20 07/06/2023 11:06 AM EST Oxygen Saturation 91% 07/06/2023 11:06 AM EST Inhaled Oxygen Concentration - - Weight 56.5 kg (124 lb 9.6 oz) 07/06/2023 11:06 AM EST Height 165.1 cm (5' 5 ) 07/06/2023 11:06 AM EST Body Mass Index 20.73 07/06/2023 11:06 AM EST Plan of Treatment Health Maintenance Due Date Last Done Comments Alcohol/Substance Use Screening 1995 Family Planning (PISQ) 1998 Hepatitis B Vaccines (1 of 3 - 19+ 3-dose series) 2002 Pneumococcal Vaccine: Pediatrics (0 to 5 Years) and At-Risk Patients (6 to 49) Years) (1 of 2 - PCV) 2002 Pap Smear 01/24/2004 Cervical Cancer Screening 2013 HPV/Cotest 2013 Mammogram 2023 Depression Monitoring 01/05/2024 07/07/2023 , 07/07/2023 COVID-19 Vaccine (4 - 2023-2 5 season) 2024 07/24/2022, 01/27/2021, 12/24/2020 Influenza Vaccine (#1) 2024 5, 04/23/2010 SDOH Screening 07/06/2024 07/06/2023 Tobacco Screening 07/06/2024 07/06/2023 Depression Screening 07/07/2024 07/07/2023, 07/07/2023 DTaP/Tdap/Td Vaccines (3 - T d or Tdap) 03/16/2027 03/16/2017, 04/23/2010 Zoster Vaccines (1 of 2) 2033 RSV Patients and Patients Aged 60 years or older (1 - 1-dose 75+ series) 2058 HIV Screening Completed 07/06/2021, 09/28/2019 Hepatitis C Screening Completed 07/06/2021 , 09/28/2019 HIB Vaccines Aged Out No longer eligi ble based on patient's age to complete this topic HPV Vaccines Aged Out No longer eligi ble based on patient's age to complete this topic Hepatitis A Vaccines Aged Out No long er eligible based on patient's age to complete this topic IPV Vaccines Aged Out No longer eligi ble based on patient's age to complete this topic Meningococcal Vaccine Aged Out No bryant viktor eligible based on patient's age to complete this topic RSV under 20 months Aged Out No longe r eligible based on patient's age to complete this topic Rotavirus Vaccines Aged Out No longer eligible based on patient's age to complete this topic Procedures Procedure Name Priority Date/Time Associated Diagnosis Comments ZZZ HISTORICAL HEPATITIS C AB W/REFL TO HCV RNA, QN, PCR Routine 07/06/2021 11:39 AM EST HIV 1/2 ANTIGEN/ANTIBODY, FOURTH GENERATION W/RFL Routine 07/06/2021 11:39 AM EST from Last 3 Months or Most Recently Relevant to Health Maintenance Results * HEPATITIS C AB W/REFL TO HCV RNA, QN, PCR (07/06/2021 11:39 AM EST) HEPATITIS C ANTIBODY NON-REACT PIPO NON-REACT PIPO [facility] INDEX 0.01 <1.00 [facility] Comment: ?? HCV antibody was non-reactive. There is no laboratory ?? evidence of HCV infection. ?? In most cases, no further action is required. However, if recent HCV exposure is suspected, a test for HCV RNA (test code 00236) is suggested. ?? For additional information please refer to http://Fastly.SugarCRM/faq/YCS71b8 (This link is being provided for informational/ educational purposes only.) ?? 07/06/2021 11:3 9 AM EST us Aman Lamb MD HISTORICAL/NON ORDERABLE LABS Fi nal Result Performing Organization Address [facility] Phone Number [facility] [address] * HIV 1/2 ANTIGEN/ANTIBODY,FOURTH GENERATION W/RFL (07/06/2021 11:39 AM EST) HIV-1/2 ANTIGEN AND ANTIBODIES, 4TH GENERATION W/ REFLEX NON-REACT PIPO NON-REACT PIPO [facility] Comment: HIV-1 antigen and HIV-1/HIV-2 antibodies were not detected. There is no laboratory evidence of HIV infection. ?? PLEASE NOTE: This information has been disclosed to you from records whose confidentiality may be protected by state law. ??If your state requires such protection, then the state law prohibits you from making any further disclosure of the information without the specific written consent of the person to whom it pertains, or as otherwise permitted by law. A general authorization for the release of medical or other information is NOT sufficient for this purpose. ? For additional information please refer to http://Fastly.SugarCRM/faq/RKN362 (This link is being provided for informational/ educational purposes only.) ? The performance of this assay has not been clinically validated in patients less than 2 years old. ?? 07/06/2021 11:3 9 AM EST us Aman Lamb MD LAB BLOOD ORDERABLES Final Resul t Performing Organization Address [facility] Phone Number [facility] [address] from Last 3 Months or Most Recently Relevant to Health Maintenance Insurance [facility] C3 [facility] Care Teams Fibrous Plasterer Relationship Specialty Start Date End Date Anastasiia Penaloza MD [address] [place] [address] PCP - General Family Medicine 10/27/23 Aly Johnson MD Consulting Physician Dermatology 07/06/23
--- OUTSIDE RECORDS SUMMARY | 2024-11-30 06:55 | XMS_ITS | Encounter Summary ---
Author Organization [employer] Address [address] [facility] 7[address] [place] [address] Care Team Providers Care Administration Intern Name Role Phone Anastasiia Penaloza MD Primary Care Provider [phone] Reason for Visit * Reason Comments Med Refill Encounter Details Date Type Department Care Team (Late st Contact Info) Description 12/14/2023 Refill [facility] [address] [place] [address] Anastasiia Penaloza MD [address] [place] [address] Social History Tobacco Use Types Packs/Day Years [...] with others, in a hotel, in a retirement, living outside on the street, on a [...] documented as of this encounter Visit Diagnoses Not on filedocumented in this encounter Additional Health Concerns Assessment Noted Time PHQ-9 Depression Total Score: 18 023 10:28 AM EST documented as of this encounter Care Teams Administration Intern Relationship Specialty Start Date End Date Anastasiia Penaloza MD [address] [place] [address] PCP - General Family Medicine 10/27/23 Aly Johnson MD Consulting Physician Dermatology 07/06/23 documented as of this encounter
[2024-11-30 07:17] LABS: MANUAL DIFF FLAG NO
[2024-11-30 07:18] LABS: Basophils Percent Auto 0.7 % (0-2); Eosinophils Absolute Auto 0.1 X10*3/uL (0.0-0.4); Eosinophils Percent Auto 1.2 % (0-4); Hematocrit 34.3 % (37.0-47.0); Hemoglobin 11.6 g/dl (12.0-16.0); Imm Gran Abs Auto 0.02 X10*3/uL (0.00-0.03); Imm Gran Pct Auto 0.4 % (0.0-0.4); Lymphocytes Absolute Auto 2.1 X10*3/uL (1.2-4.9); Lymphocytes Percent Auto 37.3 % (20-40); Mean Corpuscular HGB Conc 33.8 g/dl (31.0-35.0); Mean Corpuscular Hemoglobin 30.1 pg (27.0-33.0); Mean Corpuscular Volume 89.1 fL (80.0-98.0); Mean Platelet Volume 10.8 fL (9.4-12.3); Monocytes Absolute Auto 0.4 X10*3/uL (0.1-1.2); Monocytes Percent Auto 7.6 % (2-11); Neutrophils Percent Auto 52.8 % (45-73); Platelet Count 207 X10*3/uL (160-400); Red Blood Count 3.85 X10*6/uL (4.20-5.50); Red Cell Distribution Width 13.2 % (11.0-16.0); White Blood Count 5.6 X10*3/uL (4.8-10.8)
--- NOTE | 2024-11-30 07:36 | HE.PHANOTE ---
METHADONE Dose: 155mg, last dosed 11/29/24 per EROS Chance at [facility] .
[2024-11-30 07:43] LABS: Acetaminophen LAB < 3 mcg/mL (<30); Salicylate < 5.0 mg/dL (15-30)
[2024-11-30] MEDS: methADONE HCl 20 MG/2 ML ORAL.CONC 155 MG PO (07:43)
[2024-11-30 07:44] LABS: Alanine Aminotransferase 12 U/L (0-31); Albumin Level 4.2 g/dL (3.5-5.0); Alkaline Phosphatase 52 U/L (39-117); Anion Gap 12 (12-20); Aspartate Amino Transferase 21 U/L (5-31); Bilirubin Total 0.2 mg/dL (0.0-1.0); Blood Urea Nitrogen 13 mg/dL (9-16); Carbon Dioxide 22 mmol/L (22-29); Chloride 110 mmol/L (96-108); Creatinine Clr Calc Pharmacy 101.2; Estimated Glomerular Filt Rate > 60; Ethanol < 10 mg/dL; Glucose Random 98 mg/dL (60-115); HCG Quantitative < 2 mIU/mL; Magnesium 1.9 mg/dL (1.6-2.6); Potassium 3.9 mmol/L (3.3-5.1); Sodium 140 mmol/L (135-145); Total Protein 6.5 g/dL (6.5-8.0)
--- NOTE | 2024-11-30 08:05 | PC.NURSE ---
patient a&ox3, rr equal/non labored, labs drawn,pt gave information to obtain methadone dosage- this nurse obtained dosage/faxed to pharmacy and provider ordered med.pt medicated per order. currently denying SI/HI,1:1 sitter at bedside, plan of care ongoing
[2024-11-30] MEDS: clonazePAM 1 MG TABLET PO (08:29)
--- NOTE | 2024-11-30 08:30 | PC.NURSE ---
pt requested medication for anxiety pt medicated per order. care team at bedside speaking with the patient- pt having rapid speech and speaking about having a tracking device on her.
--- NOTE | 2024-11-30 11:08 | PC.NURSE ---
tech attempted to obtain an ekg for medical clearance- pt is refusing- she currently is paranoid and delusional- this nurse previously spoke with the floor nurse telling them she would likely refuse and if they do not see the ekg or urine performed it was due to her refusal.
[2024-11-30 12:35] VITALS: BP 109/64; PULSE 52; RESP 14; TEMP 36.4; O2SAT 100
[2024-11-30] MEDS: Haloperidol Lactate 5 MG/ML VIAL IM (13:05)
[2024-11-30] MEDS: LORazepam 1 MG TABLET PO (13:11)
[2024-11-30] MEDS: Divalproex Sodium 250 MG TABLET.DR PO ×2 (13:11→21:07)
--- NOTE | 2024-11-30 13:28 | PC.NURSE ---
Mom here, asking for care team to contact her with questions and keep her updated with plan of care.
[2024-11-30 14:05] VITALS: BP 95/58; PULSE 68; RESP 16; TEMP 37; O2SAT 98
[2024-11-30 15:18] VITALS: BP 107/59; PULSE 62; RESP 18; TEMP 36.5; O2SAT 98
[2024-11-30 15:48] VITALS: BP 100/55; PULSE 61; RESP 18; O2SAT 96
--- NOTE | 2024-11-30 15:51 | PC.NURSE ---
PT BROUGHT TO POD BY SECURITY AND ADMISSIONS STAFF. PT HAD BECOME SEVERELY AGITATED DURING DISCUSSION REGARDING REQUIREMENTS FOR EKG AND URINE SPECIMEN PRIOR TO ADMISSION WHILE IN THE MAIN ED. UPON ARRIVAL TO POD, PT TRYING TO MAKE CALLS FRANTICALLY, UNABLE TO FOLLOW DIRECTIONS ON HOW TO USE THE PHONE DUE TO SEVERE LEVEL OF DISORGANIZATION. PT VERY UPSET, UNABLE TO BE REDIRECTED, REFUSING TO TAKE PO MEDS. PT LED BACK TO HER ROOM, SAT DOWN TO AND WAS GIVEN IM HALDOL, WITH MINIMAL RESTRAINT. PT REMAINED QUITE ALERT FOLLOWING IM HALDOL FOR ALMOST AN HOUR, PACING, CONTINUED TO ATTEMPT TO MAKE PHONE CALLS, INTERMITTENTLY MAKING REQUESTS TO SPEAK TO HER INVESTOR RELATIONS ANALYST. WAS GIVEN REPEATED INSTRUCTION ON HOW TO USE THE PHONE, UNABLE TO FOLLOW. TOOK PO MEDS WITH NO ISSUE. 1 HOUR PAST IM ADMIN, PT FINALLY SITTING DOWN, EVALUATED BY ED PROVIDER, REQUESTING NICORETTE. PT CURRENTLY QUITE SOMNOLENT, VSS. ENCOURAGED TO LIE DOWN, REFUSES, EASILY ROUSED. PT WAS SOMEWHAT RESISTANT TO TRANSFER UP TO , EVENTUALLY ABLE TO BE TRANSPORTED UP THERE WITH FLOOR STAFF AND SECURITY.
--- NOTE | 2024-11-30 16:06 | ED_ITS ---
HPI - Psych General Chief Complaint: Psychiatric Symptoms Stated Complaint: from outside Time Seen by Provider: 11/30/24 06:30 Source: EMS Mode of arrival: EMS History of Present Illness HPI Narrative: Patient is a 39-year-old female boyfriend called PD concerned about patient found outside very paranoid. Thinking people getting into her head. Had rapid pressured speech. Patient claims that there is people talking to her reported using cocaine 6 hours prior. Patient stated that she is involved in a lawsuit with everyone. Related Data Home Medications ?Medication ?Instructions ?Recorded ?Confirmed methadone 10 mg/mL oral concentrate 155 mg PO DAILY ##0 06/28/24 11/30/24 Previous Rx's ?Medication ?Instructions ?Recorded benztropine 0.5 mg tablet 0.5 mg PO BEDTIME 30 days #30 tabs 07/09/24 divalproex 250 mg tablet,delayed 250 mg PO BID 30 days #60 tabs 07/09/24 release haloperidol 5 mg tablet 5 mg PO BID 30 days #60 tabs 07/09/24 hydroxyzine HCl 25 mg tablet 25 mg PO BID PRN Anxiety 30 days 07/09/24 #60 tabs Allergies Allergy/AdvReac Type Severity Reaction Status Date / Time No Known Allergies Allergy Verified 11/30/24 06:13 [No Known Allergies*] Review of Systems 2 Review of Systems: Patient refused to answer specific review of system PMFSH Past Medical History Attestation statement: The following information was validated with the patient. Medical History Schizophrenia PTSD (post-traumatic stress disorder) Opioid use disorder Cocaine use disorder Social History Social History Household Members: Significant Other Housing: Homeless Housing Other[place] Do you presently have visiting nurse or other home services: No Patient Tobacco Use Status: Current everyday Tobacco user Tobacco use type: Cigarette e-Cigarette/Vaping Use: Former Use Second Hand Smoke Exposure: Yes (boyfriend smokes) Substance Use Type: Crack/Cocaine and Marijuana Advance Directives: No Advance Directives Information Provided: No Patient : No service: No Sexual orientation: Straight/Heterosexual Physical Exam 2 Vital Signs: Vital Signs: Last Vital Signs Temp 97.7 F 11/30/24 15:18 Pulse 61 11/30/24 15:48 Resp 18 11/30/24 15:48 BP 100/55 L 11/30/24 15:48 Pulse Ox 96 11/30/24 15:48 O2 Del Method Room Air 11/30/24 15:48 BMI result Body Mass Index 20.7 Appearance: Alert. Oriented X3. No acute distress. Eyes: Pupils equal, round and reactive to light. ENT: Pharynx normal. Neck: Normal inspection. Neck supple. No lymph nodes noted. No crepitus CVS: Normal heart rate and rhythm. Pulses normal. Normal S1 and S2 Respiratory: No respiratory distress. Breath sounds normal. No Wheezing. No rales Abdomen: Soft and nontender. No rigidity. No distention. good BS x4 Skin: Skin warm and dry. Normal skin color. Normal skin turgor. Extremities: No lower extremity edema. Neurovascular intact to all extremities. No Lacerations. No Rash Neuro: Oriented X 3. No motor deficit. No sensory deficit. Moving all extermities. No slurred speech Medications Administered Discontinued Medications Generic Name Dose Route Start Last Admin Trade Name Freq PRN Reason Stop Dose Admin Clonazepam 1 mg 11/30/24 08:26 11/30/24 08:29 Clonazepam 1 Mg Tablet PO 11/30/24 08:27 1 mg ONCE ONE Administration Divalproex Sodium 250 mg 11/30/24 12:49 11/30/24 13:11 Divalproex Sodium 250 Mg Tablet.Dr PO 11/30/24 12:50 250 mg ONCE ONE Administration Haloperidol Lactate 5 mg 11/30/24 12:49 11/30/24 13:05 Haloperidol Lactate 5 Mg/Ml Vial IM 11/30/24 12:50 5 mg ONCE ONE Administration Lorazepam 1 mg 11/30/24 12:49 11/30/24 13:11 Lorazepam 1 Mg Tablet PO 11/30/24 12:50 1 mg ONCE ONE Administration Methadone HCl 155 mg 11/30/24 07:32 11/30/24 07:43 Methadone Hcl 20 Mg/2 Ml Oral.Conc PO 11/30/24 07:33 155 mg ONCE ONE Administration Medical Decision Making Medical Decision Making MDM Narrative: Positive paranoia. Positive pressure speech. Not sleeping for days. Agitated hearing voices. Differential Diagnosis Differential Diagnoses: The differential diagnosis associated with the presentation includes Admission/Observation Consideration of admission/observation: Escalation of care including admission/observation considered Consult Healthcare Provider Management of the patient was discussed with: Vice President Of Contracts (Care team) Lab Data MDM Lab Attestation statement: I reviewed the patient's lab results. 11/30/24 07:13 11/30/24 07:13 Labs: Lab Results 11/30/24 Range/Units 07:13 WBC 5.6 (4.8-10.8) X10*3/uL RBC 3.85 L (4.20-5.50) X10*6/uL Hgb 11.6 L (12.0-16.0) g/dl Hct 34.3 L (37.0-47.0) % MCV 89.1 (80.0-98.0) fL MCH 30.1 (27.0-33.0) pg MCHC 33.8 (31.0-35.0) g/dl RDW 13.2 (11.0-16.0) % Plt Count 207 (160-400) X10*3/uL MPV 10.8 (9.4-12.3) fL Immature Gran % (Auto) 0.4 (0.0-0.4) % Neut % (Auto) 52.8 (45-73) % Lymph % (Auto) 37.3 (20-40) % [place] % (Auto) 7.6 (2-11) % Eos % (Auto) 1.2 (0-4) % Baso % (Auto) 0.7 (0-2) % Lymph # (Auto) 2.1 (1.2-4.9) X10*3/uL [place] # (Auto) 0.4 (0.1-1.2) X10*3/uL Eos # (Auto) 0.1 (0.0-0.4) X10*3/uL Baso # (Auto) 0.0 (0.0-0.2) X10*3/uL Abs Immat Gran (auto) 0.02 (0.00-0.03) X10*3/uL Absolute Neuts (auto) 3.0 (2.0-8.3) x10*3/uL Absolute Nucleated RBC 0.000 (0.0-0.012) X10*3/uL Nucleated RBC % (auto) 0.0 (0.0-0.2) /100WBC Sodium 140 (135-145) mmol/L Potassium 3.9 (3.3-5.1) mmol/L Chloride 110 H (96-108) mmol/L Carbon Dioxide 22 (22-29) mmol/L Anion Gap 12 (12-20) BUN 13 (9-16) mg/dL Creatinine 0.65 (0.5-1.4) mg/dL Estim Creat Clear Calc 101.2 Estimated GFR > 60 Random Glucose 98 (60-115) mg/dL Calcium 9.0 (8.4-10.2) mg/dL Magnesium 1.9 (1.6-2.6) mg/dL Total Bilirubin 0.2 (0.0-1.0) mg/dL AST 21 (5-31) U/L ALT 12 (0-31) U/L Alkaline Phosphatase 52 (39-117) U/L Total Protein 6.5 (6.5-8.0) g/dL Albumin 4.2 (3.5-5.0) g/dL Beta HCG, Quant < 2 mIU/mL Salicylates < 5.0 L (15-30) mg/dL Acetaminophen < 3 (<30) mcg/mL Ethyl Alcohol < 10 mg/dL Independent Historian Clinical information obtained from an independent historian. History obtained from or confirmed by: Spouse External Record Review External record reviewed: Inpatient record Chronic Conditions Schizophrenia Social Determinants Patient?s care significantly limited by Social Determinants of Health including: Alcoholism and drug addiction in family and Problems related to primary support group Discharge Plan Discharge Clinical Impression: Schizophrenia Patient Disposition: Admitted As Inpatient Interventions: [place]-Suicide Risk Severity Scale Last Done: 11/30/24 06:13
[2024-11-30 16:59] VITALS: BMI 20.8
--- NOTE | 2024-11-30 18:19 | PC.NURSE ---
Lindsey was admitted to [facility]3 at 1602? [place] [facility] [place] [facility] for treatment of psychosis and stimulant use disorder.? Precipitant of admission include paranoid delusional behavior increasing noted by boyfriend. For example she believes boyfriend is a hologram and that someone is trying to kill her.? On arrival to the unit she is quite sedated. Per pod she was elevated, hypermotor, screaming and uncooperative with care down there this morning and received a medication restraint of 5mg IM and an ativan 1mg po. Patient is somnolent throughout admission process. Per Slime Barajas DIRECTOR PUBLIC pt is allowed to wear her headscarf? and necklace on the unit for adventist reasons after eva for safety with both items.? Mood is labile. She denies hallucinations. She appears paranoid and fearful. She did not voice any delusional thought content during admission assessment.? She denies ideation, plan or intent to harm self or others. Appetite is poor with recent 20 lb weight loss.? Sleep has been poor in the outpt setting but pt has been sleeping on arrival to the unit. Focus is poor. Substance Issues include recent crack use and hx of opiates - pt is on methadone maintenance. Tox Screen was not completed since pt refused. She did not report any physical complaint. Safety Checks are q 15 minutes.
[2024-11-30 20:10] VITALS: BP 120/71; PULSE 56; RESP 16; TEMP 37.3; O2SAT 100
[2024-11-30] MEDS: Benztropine Mesylate 0.5 MG TABLET PO (21:07)
[2024-11-30] MEDS: LORazepam 0.5 MG TABLET PO (21:07)
[2024-11-30] MEDS: HaloperidoL 5 MG TABLET PO (21:07)
[2024-12-01 07:00] VITALS: BP 118/64; PULSE 71; RESP 16; TEMP 36.3; O2SAT 98
[2024-12-01] MEDS: methADONE HCl 20 MG/2 ML ORAL.CONC 155 MG PO (08:05)
[2024-12-01 08:30] LABS: Estimated Average Glucose 105 mg/dL; Hemoglobin A1C 112.9694 umol/L; Hemoglobin A1c % 5.3 % (<6.0); Total Hemoglobin (HGBA1C) 3284.1231 umol/L
[2024-12-01 08:36] LABS: Alanine Aminotransferase 11 U/L (0-31); Alkaline Phosphatase 50 U/L (39-117); Anion Gap 10 (12-20); Aspartate Amino Transferase 18 U/L (5-31); Bilirubin Total 0.7 mg/dL (0.0-1.0); Blood Urea Nitrogen 10 mg/dL (9-16); Calcium 8.9 mg/dL (8.4-10.2); Carbon Dioxide 25 mmol/L (22-29); Chloride 109 mmol/L (96-108); Cholesterol 130 mg/dL (<200); Creatinine Clr Calc Pharmacy 89.5; Estimated Glomerular Filt Rate > 60; Glucose Random 89 mg/dL (60-115); HDL Cholesterol 46 mg/dL (>40); LDL Cholesterol Calculated 72 mg/dL (<100); Potassium 4.3 mmol/L (3.3-5.1); Sodium 140 mmol/L (135-145); Total Protein 6.2 g/dL (6.5-8.0); Triglycerides 61 mg/dL (<150)
[2024-12-01] MEDS: Nicotine 21 MG PATCH.TD24 TRANSDERMA (09:28)
[2024-12-01] MEDS: HaloperidoL 5 MG TABLET PO ×2 (09:29→20:45)
[2024-12-01] MEDS: LORazepam 0.5 MG TABLET PO ×2 (09:29→20:45)
[2024-12-01] MEDS: Divalproex Sodium 250 MG TABLET.DR PO (09:29)
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
[2024-12-01] MEDS: hydrOXYzine HCL 25 MG TABLET PO (17:11)
--- NOTE | 2024-12-01 17:20 | PC.NURSE ---
She is upset and had a conversation with her mother on the phone and was extremely upset. Stating why did you put me here and all they are doing is loading me with Haldol, I'm going to joanne both you and dad for this>
[2024-12-01 19:02] VITALS: BP 101/63; PULSE 64; RESP 16; TEMP 36.4; O2SAT 100
[2024-12-01] MEDS: Nicotine Polacrilex 2 MG GUM 4 MG BUCCAL (19:19)
[2024-12-01] MEDS: Benztropine Mesylate 0.5 MG TABLET PO (20:45)
[2024-12-01] MEDS: Divalproex Sodium 250 MG TABLET.DR 1250 MG PO (20:45)
[2024-12-02 07:41] VITALS: BP 132/57; PULSE 87; RESP 14; TEMP 37; O2SAT 100
[2024-12-02] MEDS: methADONE HCl 20 MG/2 ML ORAL.CONC 150 MG PO (08:11)
[2024-12-02] MEDS: LORazepam 0.5 MG TABLET PO ×2 (08:47→20:02)
[2024-12-02] MEDS: HaloperidoL 5 MG TABLET PO ×2 (08:47→20:03)
[2024-12-02] MEDS: Nicotine 21 MG PATCH.TD24 TRANSDERMA (08:47)
[2024-12-02 12:03] LABS: Amphetamine Screen Urine Not Detected (Not Detect); Barbiturates, Urine Not Detected (Not Detect); Benzodiazepines Screen Urine Not Detected (Not Detect); Buprenorphine Scr Not Detected (Not Detect); Cannabinoid Screen Urine POSITIVE (Not Detect); Cocaine Screen Urine POSITIVE (Not Detect); Fentanyl, urine POSITIVE (Not Detect); Methadone Screen, Urine Positive (Not Detect); Opiate Screen Urine Not Detected (Not Detect); Oxycodone Screen Urine Not Detected (Not Detect); Phencyclidine Screen Urine Not Detected (Not Detect)
[2024-12-02] MEDS: hydrOXYzine HCL 25 MG TABLET PO (15:25)
--- NOTE | 2024-12-02 16:55 | PC.NURSE ---
Urine for toxicology was collected and she consented to have her EKG done
[2024-12-02 20:00] VITALS: BP 108/59; PULSE 65; RESP 16; TEMP 36.6; O2SAT 99
[2024-12-02] MEDS: Divalproex Sodium 250 MG TABLET.DR 1250 MG PO (20:02)
[2024-12-02] MEDS: Benztropine Mesylate 0.5 MG TABLET PO (20:02)
[2024-12-02] MEDS: traZODone HCL 50 MG TABLET PO (20:03)
--- NOTE | 2024-12-02 20:57 | HO.PSYCHPN ---
Subjective Subjective Date of Service: 12/02/24 Reason For Visit: Crisis Interim History: remains sedated today, less so than yesterday. holding right ear c/o problem, declines medical evaluation for it. states she is doing horrible and is here to get back on my medication. per staff, oscillating between stupor and agitation for the most part. more calm and pleasant this morning than yesterday. slept 8 hours. Mental Status Exam Mental Status Exam Narrative: hospital [facility], disheveled. cooperative but sedated. PMR. very little speech. thoughts linear in very brief exchange, logic questionable. affect blunted. mood horrible. no SI/HI/AVH expressed. Diagnostics Vital Signs (24Hr): Vital Signs - 24 hr 12/02/24 07:41 Temperature 98.6 F Pulse Rate 87 Respiratory Rate 14 Blood Pressure 132/57 L Pulse Oximetry 100 Oxygen Delivery Method Room Air BMI result Body Mass Index 20.8 Labs 11/30/24 07:13 12/01/24 07:40 Labs: Laboratory Results - last 48 hr 12/01/24 12/02/24 07:40 11:15 Sodium 140 Potassium 4.3 Chloride 109 H Carbon Dioxide 25 Anion Gap 10 L BUN 10 Creatinine 0.74 Estim Creat Clear Calc 89.5 Estimated GFR > 60 Random Glucose 89 Estimat Average Glucose 105 Hemoglobin A1c % 5.3 Calcium 8.9 Total Bilirubin 0.7 AST 18 ALT 11 Alkaline Phosphatase 50 Total Protein 6.2 L Albumin 4.0 Triglycerides 61 Cholesterol 130 LDL Cholesterol, Calc 72 HDL Cholesterol 46 Urine Opiates Screen Not Detected Ur Buprenorphine Scrn Not Detected Ur Oxycodone Screen Not Detected Urine Methadone Screen Positive H Urine Fentanyl Screen POSITIVE H Ur Barbiturates Screen Not Detected Ur Phencyclidine Scrn Not Detected Ur Amphetamines Screen Not Detected U Benzodiazepines Scrn Not Detected Urine Cocaine Screen POSITIVE H U Marijuana (THC) Screen POSITIVE H Medications Medications Current Medications Acetaminophen (Acetaminophen 325 Mg Tablet) 650 mg PO Q6H PRN PRN Reason: Headache/Pain, Scale 1-10 Al Hydroxide/Mg Hydroxide (Magnesium Hydrox/Alum Hydrox 30 Ml Oral.Susp) 30 ml PO Q6H PRN PRN Reason: Heartburn/Nausea Benztropine Mesylate (Benztropine Mesylate 0.5 Mg Tablet) 0.5 mg PO BEDTIME EN Last Admin: 12/02/24 20:02 Dose: 0.5 mg Chlorpromazine HCl (Chlorpromazine Hcl 100 Mg Tablet) 100 mg PO Q6H PRN PRN Reason: agitation Divalproex Sodium (Divalproex Sodium 250 Mg Tablet.Dr) 1,250 mg PO BEDTIME [facility] Last Admin: 12/02/24 20:02 Dose: 1,250 mg Haloperidol (Haloperidol 5 Mg Tablet) 5 mg PO BID [facility] Last Admin: 12/02/24 20:03 Dose: 5 mg Hydroxyzine HCl (Hydroxyzine Hcl 25 Mg Tablet) 25 mg PO Q6H PRN PRN Reason: mild anxiety Last Admin: 12/02/24 15:25 Dose: 25 mg Ketoconazole (Ketoconazole 2 % Shampoo 120 Ml Btl) 1 appl TOPICAL Q4D [facility]; Protocol Last Admin: 12/01/24 16:08 Dose: Not Given Lorazepam (Lorazepam 0.5 Mg Tablet) 0.5 mg PO BID [facility] Last Admin: 12/02/24 20:02 Dose: 0.5 mg Magnesium Hydroxide (Milk Of Magnesia 30 Ml Oral.Susp) 30 ml PO DAILY PRN PRN Reason: Constipation Methadone HCl (Methadone Hcl 20 Mg/2 Ml Oral.Conc) 150 mg PO DAILY@0800 [facility] Last Admin: 12/02/24 08:11 Dose: 150 mg Nicotine (Nicotine 21 Mg Patch.Td24) 21 mg TRANSDERMA DAILY [facility] Last Admin: 12/02/24 08:47 Dose: 21 mg Nicotine Polacrilex (Nicotine Polacrilex 2 Mg Gum) 4 mg BUCCAL Q2H PRN PRN Reason: Nicotine Cravings Last Admin: 12/01/24 19:19 Dose: 4 mg Trazodone HCl (Trazodone Hcl 50 Mg Tablet) 50 mg PO BEDTIME MRX1 PRN PRN Reason: Insomnia Last Admin: 12/02/24 20:03 Dose: 50 mg Allergies Allergies Allergy/AdvReac Type Severity Reaction Status Date / Time No Known Allergies Allergy Verified 11/30/24 06:13 [No Known Allergies*] Assessment & Plan Assessment & Plan (1) Schizophrenia: Status: Acute Code(s): F20.9 - Schizophrenia, unspecified (2) Cocaine use disorder: Status: Acute Code(s): F14.10 - Cocaine abuse, uncomplicated (3) Opioid use disorder: Status: Acute Code(s): F11.90 - Opioid use, unspecified, uncomplicated (4) PTSD (post-traumatic stress disorder): Status: Acute Code(s): F43.10 - Post-traumatic stress disorder, unspecified Plan 12/01: decrease methadone dosing by 5 mg per day to reduce sedation. increase VPA to 1250 mg daily and consolidate at HS. otherwise continue outpt meds regimen for now. 12/02: less sedated, but still sedated. feeling horrible, here to get back on her meds. less agitation today than yesterday. continue current mgmt. Reason for continued inpatient stay Substantial Risk for: inability to function Time Spent With Patient Time: Total time managing care of this patient today ____ minutes.
[2024-12-03] MEDS: hydrOXYzine HCL 25 MG TABLET PO ×3 (00:40→20:38)
[2024-12-03] MEDS: traZODone HCL 50 MG TABLET PO (00:40)
[2024-12-03 07:30] VITALS: BP 101/53; PULSE 56; RESP 14; TEMP 36.8; O2SAT 99
[2024-12-03] MEDS: methADONE HCl 20 MG/2 ML ORAL.CONC 150 MG PO (07:53)
[2024-12-03] MEDS: LORazepam 0.5 MG TABLET PO ×2 (08:21→20:39)
[2024-12-03] MEDS: HaloperidoL 5 MG TABLET PO (08:21)
--- NOTE | 2024-12-03 08:57 | MHC.CLN ---
NUTRITION ROUTINE NUTRITION CONSULT ORDERED. EMR REVIEWED. PATIENT REPORTS POOR APPETITE WITH RECENT 20# WEIGHT OSS. REVIEW OF WEIGHT HX SHOWS VARYING WEIGHTS ON 07/05/24 (61.5KG) AND 06/29/24 (54.431 KG). IF USING WEIGHT ON 07/05, SHOWS WEIGHT LOSS 11#, -7.9% X 5 MONTHS. IF USING WEIGHT ON 06/29, SHOWS 4% WEIGH GAIN. NO ADDITIONAL NUTRITION INTERVENTIONS AT THIS TIME. RECOMMEND ADD ENSURE BID (700 KCALS, 40 G PROTEIN) IF POOR PO DURING ADM.
[2024-12-03] MEDS: chlorproMAZINE HCl 100 MG TABLET PO (09:46)
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
[2024-12-03] MEDS: Nicotine Polacrilex 2 MG GUM 4 MG BUCCAL (18:50)
[2024-12-03 20:00] VITALS: BP 97/52; PULSE 63; RESP 16; TEMP 36.5; O2SAT 100
[2024-12-03] MEDS: Divalproex Sodium 250 MG TABLET.DR 1250 MG PO (20:38)
[2024-12-03] MEDS: Benztropine Mesylate 0.5 MG TABLET PO (20:39)
[2024-12-03] MEDS: HaloperidoL 5 MG TABLET 10 MG PO (20:39)
[2024-12-04 07:34] VITALS: BP 99/56; PULSE 58; RESP 16; TEMP 36.6; O2SAT 97
[2024-12-04] MEDS: methADONE HCl 20 MG/2 ML ORAL.CONC 150 MG PO (08:02)
[2024-12-04] MEDS: Nicotine 21 MG PATCH.TD24 TRANSDERMA (08:48)
[2024-12-04] MEDS: hydrOXYzine HCL 25 MG TABLET PO ×2 (13:11→20:11)
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
[2024-12-04] MEDS: Throat Lozenge, Medicated LOZENGE 1 LOZENGE MUCOUS MEM ×2 (16:48→20:11)
[2024-12-04 20:00] VITALS: BP 119/77; PULSE 79; RESP 16; TEMP 36.6; O2SAT 99
[2024-12-04] MEDS: HaloperidoL 5 MG TABLET 10 MG PO (20:11)
[2024-12-04] MEDS: traZODone HCL 50 MG TABLET PO (20:11)
[2024-12-04] MEDS: Divalproex Sodium 250 MG TABLET.DR 1250 MG PO (20:11)
[2024-12-04] MEDS: Benztropine Mesylate 0.5 MG TABLET PO (20:11)
[2024-12-05] MEDS: hydrOXYzine HCL 25 MG TABLET PO ×2 (06:30→15:03)
[2024-12-05] MEDS: chlorproMAZINE HCl 100 MG TABLET PO (06:30)
[2024-12-05 07:43] VITALS: BP 98/55; PULSE 68; RESP 14; TEMP 36.4; O2SAT 100
[2024-12-05] MEDS: methADONE HCl 20 MG/2 ML ORAL.CONC 145 MG PO (07:44)
[2024-12-05] MEDS: Nicotine 21 MG PATCH.TD24 TRANSDERMA (07:47)
--- NOTE | 2024-12-05 09:45 | HO.PSYCHPN ---
Subjective Subjective Date of Service: 12/05/24 Reason For Visit: Crisis Subjective Notes: Conditional Voluntary Interim History: More awake today, but continues to have difficulty staying awake. Mumbled speech. difficult to understand at times. Paranoid, delusional. Patient focused on holograms ; she reports auditory and visual hallucinations. Pt stated, I see people trying to mock me . denies SI/HI. Haldol increased to 15mg PO bedtime. Cogentin increased to 1mg PO bedtime. Start: Colace 100mg PO bedtime. DC Thorazine 100mg PO Q6HR PRN Medication Compliance: Yes Side effects from medications: No Attending Groups: Intermittent Mental Status Exam Mental Status Exam Narrative: Pt is alert and oriented; behavior is cooperative and calm, drowsy, difficulty staying awake; dressed in casual attire; eye contact appropriate; Speech is normal rate, volume and not pressured, mumbling; paranoid, focused on holograms; denies SI/HI. She reports auditory and visual hallucinations. Diagnostics Vital Signs (24Hr): Vital Signs - 24 hr 12/04/24 20:00 12/05/24 07:43 Temperature 97.9 F 97.6 F Pulse Rate 79 68 Respiratory Rate 16 14 Blood Pressure 119/77 98/55 L Pulse Oximetry 99 100 Oxygen Delivery Method Room Air Room Air BMI result Body Mass Index 20.8 Labs 11/30/24 07:13 12/01/24 07:40 Medications Medications Current Medications Acetaminophen (Acetaminophen 325 Mg Tablet) 650 mg PO Q6H PRN PRN Reason: Headache/Pain, Scale 1-10 Al Hydroxide/Mg Hydroxide (Magnesium Hydrox/Alum Hydrox 30 Ml Oral.Susp) 30 ml PO Q6H PRN PRN Reason: Heartburn/Nausea Benzocaine (Throat Lozenge, Medicated Lozenge) 1 lozenge MUCOUS MEM Q2H PRN PRN Reason: Sore Throat Last Admin: 12/04/24 20:11 Dose: 1 lozenge Benztropine Mesylate (Benztropine Mesylate 0.5 Mg Tablet) 0.5 mg PO BEDTIME EN Last Admin: 12/04/24 20:11 Dose: 0.5 mg Chlorpromazine HCl (Chlorpromazine Hcl 100 Mg Tablet) 100 mg PO Q6H PRN PRN Reason: agitation Last Admin: 12/05/24 06:30 Dose: 100 mg Divalproex Sodium (Divalproex Sodium 250 Mg Tablet.Dr) 1,250 mg PO BEDTIME [facility] Last Admin: 12/04/24 20:11 Dose: 1,250 mg Haloperidol (Haloperidol 5 Mg Tablet) 10 mg PO BEDTIME EN Last Admin: 12/04/24 20:11 Dose: 10 mg Hydroxyzine HCl (Hydroxyzine Hcl 25 Mg Tablet) 25 mg PO Q6H PRN PRN Reason: mild anxiety Last Admin: 12/05/24 06:30 Dose: 25 mg Ketoconazole (Ketoconazole 2 % Shampoo 120 Ml Btl) 1 appl TOPICAL Q4D EN; Protocol Last Admin: 12/01/24 16:08 Dose: Not Given Magnesium Hydroxide (Milk Of Magnesia 30 Ml Oral.Susp) 30 ml PO DAILY PRN PRN Reason: Constipation Methadone HCl (Methadone Hcl 20 Mg/2 Ml Oral.Conc) 145 mg PO DAILY@0800 [facility] Last Admin: 12/05/24 07:44 Dose: 145 mg Nicotine (Nicotine 21 Mg Patch.Td24) 21 mg TRANSDERMA DAILY [facility] Last Admin: 12/05/24 07:47 Dose: 21 mg Nicotine Polacrilex (Nicotine Polacrilex 2 Mg Gum) 4 mg BUCCAL Q2H PRN PRN Reason: Nicotine Cravings Last Admin: 12/03/24 18:50 Dose: 4 mg Trazodone HCl (Trazodone Hcl 50 Mg Tablet) 50 mg PO BEDTIME MRX1 PRN PRN Reason: Insomnia Last Admin: 12/04/24 20:11 Dose: 50 mg Allergies Allergies Allergy/AdvReac Type Severity Reaction Status Date / Time No Known Allergies Allergy Verified 11/30/24 06:13 [No Known Allergies*] Assessment & Plan Assessment & Plan (1) Schizophrenia: Status: Acute Code(s): F20.9 - Schizophrenia, unspecified (2) Cocaine use disorder: Status: Acute Code(s): F14.10 - Cocaine abuse, uncomplicated (3) Opioid use disorder: Status: Acute Code(s): F11.90 - Opioid use, unspecified, uncomplicated (4) PTSD (post-traumatic stress disorder): Status: Acute Code(s): F43.10 - Post-traumatic stress disorder, unspecified Plan 12/01: decrease methadone dosing by 5 mg per day to reduce sedation. increase VPA to 1250 mg daily and consolidate at HS. otherwise continue outpt meds regimen for now. 12/02: less sedated, but still sedated. feeling horrible, here to get back on her meds. less agitation today than yesterday. continue current mgmt. 12/03: Continues sedated; pt has difficulty staying awake during assessment. Observed falling asleep at desk in room. Patient reports feeling depressed and anxious d/t concerns someone by the name of Cass is going to stab her while she is sleeping . Pt reports visual hallucinations of family members . denies SI/HI/AH. per nursing, slept 8 hours. Ativan decreased to 0.5mg PO bedtime and Haldol changed to 10mg PO bedtime. 12/04: continues sedated. decrease methadone from 150 mg to 145 mg. DC ativan 0.5 mg at HS. otherwise continue current mgmt. no angry outbursts in the past 24H. delusional re device in her ear. 12/05: More awake today, but continues to have difficulty staying awake. Mumbled speech. difficult to understand at times. Paranoid, delusional. Patient focused on holograms ; she reports auditory and visual hallucinations. Pt stated, I see people trying to mock me . denies SI/HI. Haldol increased to 15mg PO bedtime. Cogentin increased to 1mg PO bedtime. Start: Colace 100mg PO bedtime. DC Thorazine 100mg PO Q6HR PRN Patient educated on: diagnosis and medication risk/benefits Reason for continued inpatient stay Substantial Risk for: med/psych decompensation Time Spent With Patient Time: Total time managing care of this patient today _20___ minutes.
[2024-12-05] MEDS: Ketoconazole 2 % Shampoo 120 ML BTL 1 APPL TOPICAL (11:43)
[2024-12-05 13:26] LABS: MANUAL DIFF FLAG NO
[2024-12-05 13:32] LABS: Basophils Percent Auto 0.9 % (0-2); Eosinophils Absolute Auto 0.1 X10*3/uL (0.0-0.4); Eosinophils Percent Auto 4.1 % (0-4); Hematocrit 36.9 % (37.0-47.0); Hemoglobin 11.8 g/dl (12.0-16.0); Imm Gran Abs Auto 0.01 X10*3/uL (0.00-0.03); Imm Gran Pct Auto 0.3 % (0.0-0.4); Lymphocytes Absolute Auto 1.9 X10*3/uL (1.2-4.9); Lymphocytes Percent Auto 53.6 % (20-40); Mean Corpuscular Volume 93.9 fL (80.0-98.0); Mean Platelet Volume 11.1 fL (9.4-12.3); Monocytes Absolute Auto 0.3 X10*3/uL (0.1-1.2); Monocytes Percent Auto 8.1 % (2-11); Neutrophils Absolute Auto 1.1 x10*3/uL (2.0-8.3); Platelet Count 153 X10*3/uL (160-400); Red Blood Count 3.93 X10*6/uL (4.20-5.50); Red Cell Distribution Width 13.2 % (11.0-16.0); White Blood Count 3.5 X10*3/uL (4.8-10.8)
[2024-12-05 13:37] LABS: Ammonia 46 umol/L (13-55)
[2024-12-05 13:47] LABS: Alanine Aminotransferase 11 U/L (0-31); Albumin Level 3.9 g/dL (3.5-5.0); Alkaline Phosphatase 54 U/L (39-117); Anion Gap 10 (12-20); Aspartate Amino Transferase 20 U/L (5-31); Bilirubin Direct < 0.2 mg/dL (0.0-0.5); Bilirubin Total 0.2 mg/dL (0.0-1.0); Blood Urea Nitrogen 18 mg/dL (9-16); Calcium 8.8 mg/dL (8.4-10.2); Carbon Dioxide 30 mmol/L (22-29); Chloride 106 mmol/L (96-108); Creatinine Clr Calc Pharmacy 77.9; Estimated Glomerular Filt Rate > 60; Glucose Random 84 mg/dL (60-115); Potassium 4.6 mmol/L (3.3-5.1); Sodium 141 mmol/L (135-145); Total Protein 6.3 g/dL (6.5-8.0)
[2024-12-05 13:51] LABS: Estimated Average Glucose 105 mg/dL; Hemoglobin A1c % 5.3 % (<6.0); Total Hemoglobin (HGBA1C) 3182.6989 umol/L
[2024-12-05 14:05] LABS: TSH reflex Free T4 2.38 uIU/mL (0.32-4.0)
[2024-12-05] MEDS: Nicotine Polacrilex 2 MG GUM 4 MG BUCCAL (14:20)
[2024-12-05 19:30] VITALS: BP 102/61; PULSE 58; RESP 16; TEMP 36.9; O2SAT 99
[2024-12-05] MEDS: Benztropine Mesylate 1 MG TABLET PO (20:06)
[2024-12-05] MEDS: Divalproex Sodium 250 MG TABLET.DR 1250 MG PO (20:06)
[2024-12-05] MEDS: HaloperidoL 5 MG TABLET 15 MG PO (20:06)
[2024-12-05] MEDS: Docusate Sodium 100 MG CAPSULE PO (20:06)
[2024-12-06 07:00] VITALS: BMI 22.4
[2024-12-06 08:00] VITALS: BP 106/59; PULSE 53; RESP 16; TEMP 36.5; O2SAT 100
[2024-12-06] MEDS: methADONE HCl 20 MG/2 ML ORAL.CONC 145 MG PO (08:04)
[2024-12-06 12:52] LABS: Appearance Urine Clear; Color Urine Yellow; Glucose Urine UA Negative (Negative); Leukocyte Esterase Urine Negative (Negative); Nitrite Urine Negative (Negative); PH 7.5 (5.0-9.0); Specific Gravity - Urine 1.025 (1.005-1.025); UMIC TRIGGER UACC YES; Urine Blood Moderate (2+) (Negative); Urine Ketones Trace mg/dL (Negative); Urine Protein Negative (Neg-Trace)
[2024-12-06 12:55] LABS: Bacteria Urine None Seen (None Seen); Hyaline Casts Urine 0-2 /LPF (0-2); RBC Urine >20 /HPF (0-2); Squamous Epithelial Cell Urine 0-2 /HPF (0-2); WBC Urine 0-5 /HPF (0-5)
[2024-12-06] MEDS: Nicotine 21 MG PATCH.TD24 TRANSDERMA (14:17)
[2024-12-06] MEDS: Nicotine Polacrilex 2 MG GUM 4 MG BUCCAL ×2 (14:17→20:41)
--- NOTE | 2024-12-06 15:00 | P.PNPSI_ITS ---
Subjective Subjective Date of Service: 12/06/24 Reason For Visit: Crisis Interim History: sedated, falling asleep at table. asking questions and making comments not pertinent to present circumstance. per staff, c/o VH. holograms. sedated, paranoid. angry bcse asking about gems from grandmother and nobody is helping her. sleeping very well. Mental Status Exam Mental Status Exam Narrative: own clothes, disheveled. cooperative but sedated. PMR. very little speech. thoughts regarding circumstances of no pertinence, logic questionable. affect blunted. mood not assessed. no SI/HI/AVH expressed. Diagnostics Vital Signs (24Hr): Vital Signs - 24 hr 12/05/24 19:30 12/06/24 08:00 Temperature 98.4 F 97.7 F Pulse Rate 58 53 Respiratory Rate 16 16 Blood Pressure 102/61 106/59 L Pulse Oximetry 99 100 Oxygen Delivery Method Room Air Room Air BMI result Body Mass Index 20.8 Labs 12/05/24 13:19 12/05/24 13:19 Labs: Laboratory Results - last 48 hr 12/05/24 12/06/24 13:19 12:30 WBC 3.5 L RBC 3.93 L Hgb 11.8 L Hct 36.9 L MCV 93.9 MCH 30.0 MCHC 32.0 RDW 13.2 Plt Count 153 L D MPV 11.1 Immature Gran % (Auto) 0.3 Neut % (Auto) 33.0 L Lymph % (Auto) 53.6 H [place] % (Auto) 8.1 Eos % (Auto) 4.1 H Baso % (Auto) 0.9 Lymph # (Auto) 1.9 [place] # (Auto) 0.3 Eos # (Auto) 0.1 Baso # (Auto) 0.0 Abs Immat Gran (auto) 0.01 Absolute Neuts (auto) 1.1 L Absolute Nucleated RBC 0.000 Nucleated RBC % (auto) 0.0 Sodium 141 Potassium 4.6 Chloride 106 Carbon Dioxide 30 H Anion Gap 10 L BUN 18 H Creatinine 0.85 Estim Creat Clear Calc 77.9 Estimated GFR > 60 Random Glucose 84 Estimat Average Glucose 105 Hemoglobin A1c % 5.3 Calcium 8.8 Total Bilirubin 0.2 Direct Bilirubin < 0.2 AST 20 ALT 11 Alkaline Phosphatase 54 Ammonia 46 Total Protein 6.3 L Albumin 3.9 TSH 2.38 Urine Color Yellow Urine Appearance Clear Urine pH 7.5 Ur Specific [place] 1.025 Urine Protein Negative Urine Glucose (UA) Negative Urine Ketones Trace Urine Blood Moderate (2+) H Urine Nitrite Negative Ur Leukocyte Esterase Negative Urine RBC >20 H Urine WBC 0-5 Ur Squamous Epith Cells 0-2 Urine Bacteria None Seen Hyaline Casts 0-2 Valproic Acid 69.0 Medications Medications Current Medications Acetaminophen (Acetaminophen 325 Mg Tablet) 650 mg PO Q6H PRN PRN Reason: Headache/Pain, Scale 1-10 Al Hydroxide/Mg Hydroxide (Magnesium Hydrox/Alum Hydrox 30 Ml Oral.Susp) 30 ml PO Q6H PRN PRN Reason: Heartburn/Nausea Benzocaine (Throat Lozenge, Medicated Lozenge) 1 lozenge MUCOUS MEM Q2H PRN PRN Reason: Sore Throat Last Admin: 12/04/24 20:11 Dose: 1 lozenge Benztropine Mesylate (Benztropine Mesylate 1 Mg Tablet) 1 mg PO BEDTIME [facility] Last Admin: 12/05/24 20:06 Dose: 1 mg Divalproex Sodium (Divalproex Sodium 250 Mg Tablet.Dr) 1,250 mg PO BEDTIME [facility] Last Admin: 12/05/24 20:06 Dose: 1,250 mg Docusate Sodium (Docusate Sodium 100 Mg Capsule) 100 mg PO BEDTIME EN Last Admin: 12/05/24 20:06 Dose: 100 mg Haloperidol (Haloperidol 5 Mg Tablet) 15 mg PO BEDTIME EN Last Admin: 12/05/24 20:06 Dose: 15 mg Hydroxyzine HCl (Hydroxyzine Hcl 25 Mg Tablet) 25 mg PO Q6H PRN PRN Reason: mild anxiety Last Admin: 12/05/24 15:03 Dose: 25 mg Ketoconazole (Ketoconazole 2 % Shampoo 120 Ml Btl) 1 appl TOPICAL Q4D EN; Protocol Last Admin: 12/05/24 11:43 Dose: 1 appl Magnesium Hydroxide (Milk Of Magnesia 30 Ml Oral.Susp) 30 ml PO DAILY PRN PRN Reason: Constipation Methadone HCl (Methadone Hcl 20 Mg/2 Ml Oral.Conc) 140 mg PO DAILY@0800 [facility] Nicotine (Nicotine 21 Mg Patch.Td24) 21 mg TRANSDERMA DAILY [facility] Last Admin: 12/06/24 14:17 Dose: 21 mg Nicotine Polacrilex (Nicotine Polacrilex 2 Mg Gum) 4 mg BUCCAL Q2H PRN PRN Reason: Nicotine Cravings Last Admin: 12/06/24 14:17 Dose: 4 mg Olanzapine (Olanzapine 5 Mg Tablet) 5 mg PO Q4H PRN PRN Reason: agitation Allergies Allergies Allergy/AdvReac Type Severity Reaction Status Date / Time No Known Allergies Allergy Verified 11/30/24 06:13 [No Known Allergies*] Assessment & Plan Assessment & Plan (1) Schizophrenia: Status: Acute Code(s): F20.9 - Schizophrenia, unspecified (2) Cocaine use disorder: Status: Acute Code(s): F14.10 - Cocaine abuse, uncomplicated (3) Opioid use disorder: Status: Acute Code(s): F11.90 - Opioid use, unspecified, uncomplicated (4) PTSD (post-traumatic stress disorder): Status: Acute Code(s): F43.10 - Post-traumatic stress disorder, unspecified Plan 12/01: decrease methadone dosing by 5 mg per day to reduce sedation. increase VPA to 1250 mg daily and consolidate at HS. otherwise continue outpt meds regimen for now. 12/02: less sedated, but still sedated. feeling horrible, here to get back on her meds. less agitation today than yesterday. continue current mgmt. 12/03: Continues sedated; pt has difficulty staying awake during assessment. Observed falling asleep at desk in room. Patient reports feeling depressed and anxious d/t concerns someone by the name of Cass is going to stab her while she is sleeping . Pt reports visual hallucinations of family members . denies SI/HI/AH. per nursing, slept 8 hours. Ativan decreased to 0.5mg PO bedtime and Haldol changed to 10mg PO bedtime. 12/04: continues sedated. decrease methadone from 150 mg to 145 mg. DC ativan 0.5 mg at HS. otherwise continue current mgmt. no angry outbursts in the past 24H. delusional re device in her ear. 12/05: More awake today, but continues to have difficulty staying awake. Mumbled speech. difficult to understand at times. Paranoid, delusional. Patient focused on holograms ; she reports auditory and visual hallucinations. Pt stated, I see people trying to mock me . denies SI/HI. Haldol increased to 15mg PO bedtime. Cogentin increased to 1mg PO bedtime. Start: Colace 100mg PO bedtime. DC Thorazine 100mg PO Q6HR PRN 12/06: remains overly sedated. decrease methadone to 140 mg daily as of tomorrow. would minimize anti-cholinergic medications, such as cogentin, out of concern for exacerbation of delirium; return cogentin to 0.5 mg QHS. decrease haldol from 15 mg QHS to 10 mg QHS for now as well. repeat labs this evening. Reason for continued inpatient stay Substantial Risk for: inability to function Time Spent With Patient Time: Total time managing care of this patient today __25__ minutes.
[2024-12-06 16:30] LABS: CT PCR NOT DETECTED (Not Detect.); NG PCR NOT DETECTED (Not Detect.)
[2024-12-06 20:40] VITALS: BP 106/68; PULSE 60; RESP 16; TEMP 36.6; O2SAT 100
[2024-12-06] MEDS: Docusate Sodium 100 MG CAPSULE PO (20:41)
[2024-12-06] MEDS: Divalproex Sodium 250 MG TABLET.DR 1250 MG PO (20:41)
[2024-12-06] MEDS: HaloperidoL 5 MG TABLET 10 MG PO (20:41)
[2024-12-06 20:44] LABS: MANUAL DIFF FLAG NO
[2024-12-06] MEDS: Benztropine Mesylate 0.5 MG TABLET PO (20:45)
[2024-12-06 20:46] LABS: Basophils Percent Auto 0.3 % (0-2); Eosinophils Absolute Auto 0.1 X10*3/uL (0.0-0.4); Eosinophils Percent Auto 3.8 % (0-4); Hematocrit 36.1 % (37.0-47.0); Hemoglobin 11.7 g/dl (12.0-16.0); Imm Gran Abs Auto 0.01 X10*3/uL (0.00-0.03); Imm Gran Pct Auto 0.3 % (0.0-0.4); Lymphocytes Absolute Auto 1.7 X10*3/uL (1.2-4.9); Lymphocytes Percent Auto 50.9 % (20-40); Mean Corpuscular HGB Conc 32.4 g/dl (31.0-35.0); Mean Corpuscular Hemoglobin 30.3 pg (27.0-33.0); Mean Corpuscular Volume 93.5 fL (80.0-98.0); Mean Platelet Volume 11.3 fL (9.4-12.3); Monocytes Absolute Auto 0.4 X10*3/uL (0.1-1.2); Monocytes Percent Auto 10.6 % (2-11); Neutrophils Absolute Auto 1.2 x10*3/uL (2.0-8.3); Neutrophils Percent Auto 34.1 % (45-73); Platelet Count 144 X10*3/uL (160-400); Red Blood Count 3.86 X10*6/uL (4.20-5.50); Red Cell Distribution Width 13.2 % (11.0-16.0); White Blood Count 3.4 X10*3/uL (4.8-10.8)
[2024-12-06 20:54] LABS: Ammonia 54 umol/L (13-55)
[2024-12-06 21:00] LABS: Anion Gap 12 (12-20); Blood Urea Nitrogen 18 mg/dL (9-16); Calcium 8.9 mg/dL (8.4-10.2); Carbon Dioxide 27 mmol/L (22-29); Chloride 105 mmol/L (96-108); Creatinine Clr Calc Pharmacy 92.5; Estimated Glomerular Filt Rate > 60; Glucose Random 107 mg/dL (60-115); Potassium 4.4 mmol/L (3.3-5.1); Sodium 140 mmol/L (135-145)
[2024-12-07] MEDS: Nicotine Polacrilex 2 MG GUM 4 MG BUCCAL ×2 (03:36→12:42)
[2024-12-07 07:36] VITALS: BP 100/55; PULSE 51; RESP 16; TEMP 36.9; O2SAT 99
[2024-12-07 07:50] LABS: Syphilis Screen Nonreactive (Nonreactive)
[2024-12-07 07:54] LABS: HBS Num1 770.36 mIU/mL (0-7.99); HBc Num1 0.06 S/CO (0.00-0.79); HBsAGNum1 0.24 S/CO (0.00-0.99); Hepatitis B Core Antibody Nonreactive (Nonreactive); Hepatitis B Surface Antigen Negative (Negative); ~HepC Num1 0.08 S/CO (0.00-0.79); ~Hepatitis B Surface Antibody REACTIVE (Nonreactive); ~Hepatitis C Antibody Nonreactive (Nonreactive)
[2024-12-07 08:10] LABS: HIV AB/AG Nonreactive (Nonreactive); HIV Num 1 0.08 S/CO (0.00-0.99)
[2024-12-07] MEDS: methADONE HCl 20 MG/2 ML ORAL.CONC 140 MG PO (08:35)
--- NOTE | 2024-12-07 09:18 | P.PNPSI_ITS ---
Subjective Subjective Date of Service: 12/07/24 Reason For Visit: Crisis Subjective Notes: 3 Day Interim History: Active on unit. more alert, not sedated today. patient reporting feeling fine ; she denies SI/HI/VH/AH. Pt stated, I'm not concerned about holograms . focused on discharge; 3 day up on 12/12/24, pt aware. Medication Compliance: Yes Side effects from medications: No Mental Status Exam Mental Status Exam Patient Appearance: Appropriate Patient Orientation: Person, Place, Time and Situation Level of Consciousness: Awake and Alert Patient Behavior: Cooperative and Good Eye Contact Mood Description: Anxious Affect Description: Blunted Ability to Follow Directions: Good Speech Pattern: Appropriate Memory Description: Intact Hallucinations: None Thought Process: Intact Thought Content: positive for Goal Oriented Diagnostics Vital Signs (24Hr): Vital Signs - 24 hr 12/06/24 20:40 12/07/24 07:36 Temperature 97.8 F 98.5 F Pulse Rate 60 51 Respiratory Rate 16 16 Blood Pressure 106/68 100/55 L Pulse Oximetry 100 99 Oxygen Delivery Method Room Air Room Air BMI result Body Mass Index 22.4 Labs 12/06/24 20:38 12/06/24 20:38 Labs: Laboratory Results - last 48 hr 12/05/24 12/06/24 12/06/24 13:19 12:30 20:38 WBC 3.5 L 3.4 L RBC 3.93 L 3.86 L Hgb 11.8 L 11.7 L Hct 36.9 L 36.1 L MCV 93.9 93.5 MCH 30.0 30.3 MCHC 32.0 32.4 RDW 13.2 13.2 Plt Count 153 L D 144 L MPV 11.1 11.3 Immature Gran % (Auto) 0.3 0.3 Neut % (Auto) 33.0 L 34.1 L Lymph % (Auto) 53.6 H 50.9 H [place] % (Auto) 8.1 10.6 Eos % (Auto) 4.1 H 3.8 Baso % (Auto) 0.9 0.3 Lymph # (Auto) 1.9 1.7 [place] # (Auto) 0.3 0.4 Eos # (Auto) 0.1 0.1 Baso # (Auto) 0.0 0.0 Abs Immat Gran (auto) 0.01 0.01 Absolute Neuts (auto) 1.1 L 1.2 L Absolute Nucleated RBC 0.000 0.000 Nucleated RBC % (auto) 0.0 0.0 Sodium 141 140 Potassium 4.6 4.4 Chloride 106 105 Carbon Dioxide 30 H 27 Anion Gap 10 L 12 BUN 18 H 18 H Creatinine 0.85 0.72 Estim Creat Clear Calc 77.9 92.5 Estimated GFR > 60 > 60 Random Glucose 84 107 Estimat Average Glucose 105 Hemoglobin A1c % 5.3 Calcium 8.8 8.9 Total Bilirubin 0.2 Direct Bilirubin < 0.2 AST 20 ALT 11 Alkaline Phosphatase 54 Ammonia 46 54 Total Protein 6.3 L Albumin 3.9 TSH 2.38 Urine Color Yellow Urine Appearance Clear Urine pH 7.5 Ur Specific [place] 1.025 Urine Protein Negative Urine Glucose (UA) Negative Urine Ketones Trace Urine Blood Moderate (2+) H Urine Nitrite Negative Ur Leukocyte Esterase Negative Urine RBC >20 H Urine WBC 0-5 Ur Squamous Epith Cells 0-2 Urine Bacteria None Seen Hyaline Casts 0-2 Valproic Acid 69.0 42.0 L T.pallidum Ab (EIA) Nonreactive Chlam trachomat DNA PCR NOT DETECTED Hep Bs Antigen Negative Hep Bs Antibody REACTIVE Hep B Core Total Ab Nonreactive Hepatitis C Ab (EIA) Nonreactive HIV 1&2 Ab/P24 Ag 4thGn Nonreactive N.gonorrhoeae DNA (PCR) NOT DETECTED Medications Medications Current Medications Acetaminophen (Acetaminophen 325 Mg Tablet) 650 mg PO Q6H PRN PRN Reason: Headache/Pain, Scale 1-10 Al Hydroxide/Mg Hydroxide (Magnesium Hydrox/Alum Hydrox 30 Ml Oral.Susp) 30 ml PO Q6H PRN PRN Reason: Heartburn/Nausea Benzocaine (Throat Lozenge, Medicated Lozenge) 1 lozenge MUCOUS MEM Q2H PRN PRN Reason: Sore Throat Last Admin: 12/04/24 20:11 Dose: 1 lozenge Benztropine Mesylate (Benztropine Mesylate 0.5 Mg Tablet) 0.5 mg PO BEDTIME EN Last Admin: 12/06/24 20:45 Dose: 0.5 mg Divalproex Sodium (Divalproex Sodium 250 Mg Tablet.Dr) 1,250 mg PO BEDTIME EN Last Admin: 12/06/24 20:41 Dose: 1,250 mg Docusate Sodium (Docusate Sodium 100 Mg Capsule) 100 mg PO BEDTIME EN Last Admin: 12/06/24 20:41 Dose: 100 mg Haloperidol (Haloperidol 5 Mg Tablet) 10 mg PO BEDTIME [facility] Last Admin: 12/06/24 20:41 Dose: 10 mg Hydroxyzine HCl (Hydroxyzine Hcl 25 Mg Tablet) 25 mg PO Q6H PRN PRN Reason: mild anxiety Last Admin: 12/05/24 15:03 Dose: 25 mg Ketoconazole (Ketoconazole 2 % Shampoo 120 Ml Btl) 1 appl TOPICAL Q4D EN; Protocol Last Admin: 12/05/24 11:43 Dose: 1 appl Magnesium Hydroxide (Milk Of Magnesia 30 Ml Oral.Susp) 30 ml PO DAILY PRN PRN Reason: Constipation Methadone HCl (Methadone Hcl 20 Mg/2 Ml Oral.Conc) 140 mg PO DAILY@0800 [facility] Last Admin: 12/07/24 08:35 Dose: 140 mg Nicotine (Nicotine 21 Mg Patch.Td24) 21 mg TRANSDERMA DAILY [facility] Last Admin: 12/07/24 08:41 Dose: Not Given Nicotine Polacrilex (Nicotine Polacrilex 2 Mg Gum) 4 mg BUCCAL Q2H PRN PRN Reason: Nicotine Cravings Last Admin: 12/07/24 03:36 Dose: 4 mg Olanzapine (Olanzapine 5 Mg Tablet) 5 mg PO Q4H PRN PRN Reason: agitation Allergies Allergies Allergy/AdvReac Type Severity Reaction Status Date / Time No Known Allergies Allergy Verified 11/30/24 06:13 [No Known Allergies*] Assessment & Plan Assessment & Plan (1) Schizophrenia: Status: Acute Code(s): F20.9 - Schizophrenia, unspecified (2) Cocaine use disorder: Status: Acute Code(s): F14.10 - Cocaine abuse, uncomplicated (3) Opioid use disorder: Status: Acute Code(s): F11.90 - Opioid use, unspecified, uncomplicated (4) PTSD (post-traumatic stress disorder): Status: Acute Code(s): F43.10 - Post-traumatic stress disorder, unspecified Plan 12/01: decrease methadone dosing by 5 mg per day to reduce sedation. increase VPA to 1250 mg daily and consolidate at HS. otherwise continue outpt meds regimen for now. 12/02: less sedated, but still sedated. feeling horrible, here to get back on her meds. less agitation today than yesterday. continue current mgmt. 12/03: Continues sedated; pt has difficulty staying awake during assessment. Observed falling asleep at desk in room. Patient reports feeling depressed and anxious d/t concerns someone by the name of Cass is going to stab her while she is sleeping . Pt reports visual hallucinations of family members . denies SI/HI/AH. per nursing, slept 8 hours. Ativan decreased to 0.5mg PO bedtime and Haldol changed to 10mg PO bedtime. 12/04: continues sedated. decrease methadone from 150 mg to 145 mg. DC ativan 0.5 mg at HS. otherwise continue current mgmt. no angry outbursts in the past 24H. delusional re device in her ear. 12/05: More awake today, but continues to have difficulty staying awake. Mumbled speech. difficult to understand at times. Paranoid, delusional. Patient focused on holograms ; she reports auditory and visual hallucinations. Pt stated, I see people trying to mock me . denies SI/HI. Haldol increased to 15mg PO bedtime. Cogentin increased to 1mg PO bedtime. Start: Colace 100mg PO bedtime. DC Thorazine 100mg PO Q6HR PRN 12/06: remains overly sedated. decrease methadone to 140 mg daily as of tomorrow. would minimize anti-cholinergic medications, such as cogentin, out of concern for exacerbation of delirium; return cogentin to 0.5 mg QHS. decrease haldol from 15 mg QHS to 10 mg QHS for now as well. repeat labs this evening. 12/07: Active on unit. more alert, not sedated today. patient reporting feeling fine ; she denies SI/HI/VH/AH. Pt stated, I'm not concerned about holograms . focused on discharge; 3 day up on 12/12/24, pt aware. continue current tx plan. Patient educated on: diagnosis and medication risk/benefits Reason for continued inpatient stay Substantial Risk for: med/psych decompensation Time Spent With Patient Time: Total time managing care of this patient today _20___ minutes.
[2024-12-07] MEDS: OLANZapine 5 MG TABLET PO (12:46)
[2024-12-07 20:00] VITALS: BP 109/66; PULSE 50; RESP 16; TEMP 36.4; O2SAT 100
[2024-12-07] MEDS: Benztropine Mesylate 0.5 MG TABLET PO (21:16)
[2024-12-07] MEDS: Divalproex Sodium 250 MG TABLET.DR 1250 MG PO (21:16)
[2024-12-07] MEDS: HaloperidoL 5 MG TABLET 10 MG PO (21:16)
[2024-12-07] MEDS: Docusate Sodium 100 MG CAPSULE PO (21:17)
[2024-12-08 08:00] VITALS: BP 88/50; PULSE 50; RESP 16; TEMP 35.9; O2SAT 100
[2024-12-08] MEDS: methADONE HCl 20 MG/2 ML ORAL.CONC 140 MG PO (08:10)
[2024-12-08] MEDS: Nicotine 21 MG PATCH.TD24 TRANSDERMA (08:57)
--- NOTE | 2024-12-08 10:43 | HO.PSYCHPN ---
Subjective Subjective Date of Service: 12/08/24 Reason For Visit: Crisis Subjective Notes: 3 Day Interim History: Pt slept all night. She does say that all of this referring to the hospitalization is due to her family wanting her money. She asks about discharge several times, explained her 3 day is up on 12/12. She is taking medications, visible on the unit, social with select peers, no behavioral concerns. did increase cogentin mild dystonic rx affecting speech. Review of Systems Review of Systems Patient refused to answer specific review of system Yes Other Mental Status Exam Mental Status Exam Narrative: own clothes, improved hygiene. cooperative, alert. PMR. thought process more organized and linear. No overt delusional content- although suspect some residual content. no SI/HI/AVH expressed. Diagnostics Vital Signs (24Hr): Vital Signs - 24 hr 12/07/24 20:00 12/08/24 08:00 Temperature 97.6 F 96.6 F L Pulse Rate 50 50 Respiratory Rate 16 16 Blood Pressure 109/66 88/50 L Pulse Oximetry 100 100 Oxygen Delivery Method Room Air Room Air BMI result Body Mass Index 22.4 Labs 12/06/24 20:38 12/06/24 20:38 Labs: Laboratory Results - last 48 hr 12/06/24 12/06/24 12:30 20:38 WBC 3.4 L RBC 3.86 L Hgb 11.7 L Hct 36.1 L MCV 93.5 MCH 30.3 MCHC 32.4 RDW 13.2 Plt Count 144 L MPV 11.3 Immature Gran % (Auto) 0.3 Neut % (Auto) 34.1 L Lymph % (Auto) 50.9 H [place] % (Auto) 10.6 Eos % (Auto) 3.8 Baso % (Auto) 0.3 Lymph # (Auto) 1.7 [place] # (Auto) 0.4 Eos # (Auto) 0.1 Baso # (Auto) 0.0 Abs Immat Gran (auto) 0.01 Absolute Neuts (auto) 1.2 L Absolute Nucleated RBC 0.000 Nucleated RBC % (auto) 0.0 Sodium 140 Potassium 4.4 Chloride 105 Carbon Dioxide 27 Anion Gap 12 BUN 18 H Creatinine 0.72 Estim Creat Clear Calc 92.5 Estimated GFR > 60 Random Glucose 107 Calcium 8.9 Ammonia 54 Urine Color Yellow Urine Appearance Clear Urine pH 7.5 Ur Specific [place] 1.025 Urine Protein Negative Urine Glucose (UA) Negative Urine Ketones Trace Urine Blood Moderate (2+) H Urine Nitrite Negative Ur Leukocyte Esterase Negative Urine RBC >20 H Urine WBC 0-5 Ur Squamous Epith Cells 0-2 Urine Bacteria None Seen Hyaline Casts 0-2 Valproic Acid 42.0 L T.pallidum Ab (EIA) Nonreactive Chlam trachomat DNA PCR NOT DETECTED Hep Bs Antigen Negative Hep Bs Antibody REACTIVE Hep B Core Total Ab Nonreactive Hepatitis C Ab (EIA) Nonreactive HIV 1&2 Ab/P24 Ag 4thGn Nonreactive N.gonorrhoeae DNA (PCR) NOT DETECTED Medications Medications Current Medications Acetaminophen (Acetaminophen 325 Mg Tablet) 650 mg PO Q6H PRN PRN Reason: Headache/Pain, Scale 1-10 Al Hydroxide/Mg Hydroxide (Magnesium Hydrox/Alum Hydrox 30 Ml Oral.Susp) 30 ml PO Q6H PRN PRN Reason: Heartburn/Nausea Benzocaine (Throat Lozenge, Medicated Lozenge) 1 lozenge MUCOUS MEM Q2H PRN PRN Reason: Sore Throat Last Admin: 12/04/24 20:11 Dose: 1 lozenge Benztropine Mesylate (Benztropine Mesylate 0.5 Mg Tablet) 0.5 mg PO BEDTIME EN Last Admin: 12/07/24 21:16 Dose: 0.5 mg Divalproex Sodium (Divalproex Sodium 250 Mg Tablet.Dr) 1,250 mg PO BEDTIME EN Last Admin: 12/07/24 21:16 Dose: 1,250 mg Docusate Sodium (Docusate Sodium 100 Mg Capsule) 100 mg PO BEDTIME EN Last Admin: 12/07/24 21:17 Dose: 100 mg Haloperidol (Haloperidol 5 Mg Tablet) 10 mg PO BEDTIME EN Last Admin: 12/07/24 21:16 Dose: 10 mg Hydroxyzine HCl (Hydroxyzine Hcl 25 Mg Tablet) 25 mg PO Q6H PRN PRN Reason: mild anxiety Last Admin: 12/05/24 15:03 Dose: 25 mg Ketoconazole (Ketoconazole 2 % Shampoo 120 Ml Btl) 1 appl TOPICAL Q4D EN; Protocol Last Admin: 12/05/24 11:43 Dose: 1 appl Magnesium Hydroxide (Milk Of Magnesia 30 Ml Oral.Susp) 30 ml PO DAILY PRN PRN Reason: Constipation Methadone HCl (Methadone Hcl 20 Mg/2 Ml Oral.Conc) 140 mg PO DAILY@0800 COUNTS INCLUDE 234 BEDS AT THE [facility] Last Admin: 12/08/24 08:10 Dose: 140 mg Nicotine (Nicotine 21 Mg Patch.Td24) 21 mg TRANSDERMA DAILY COUNTS INCLUDE 234 BEDS AT THE [facility] Last Admin: 12/08/24 08:57 Dose: 21 mg Nicotine Polacrilex (Nicotine Polacrilex 2 Mg Gum) 4 mg BUCCAL Q2H PRN PRN Reason: Nicotine Cravings Last Admin: 12/07/24 12:42 Dose: 4 mg Olanzapine (Olanzapine 5 Mg Tablet) 5 mg PO Q4H PRN PRN Reason: agitation Last Admin: 12/07/24 12:46 Dose: 5 mg Allergies Allergies Allergy/AdvReac Type Severity Reaction Status Date / Time No Known Allergies Allergy Verified 11/30/24 06:13 [No Known Allergies*] Assessment & Plan Assessment & Plan (1) Schizophrenia: Status: Acute Code(s): F20.9 - Schizophrenia, unspecified (2) Cocaine use disorder: Status: Acute Code(s): F14.10 - Cocaine abuse, uncomplicated (3) Opioid use disorder: Status: Acute Code(s): F11.90 - Opioid use, unspecified, uncomplicated (4) PTSD (post-traumatic stress disorder): Status: Acute Code(s): F43.10 - Post-traumatic stress disorder, unspecified Plan 12/01: decrease methadone dosing by 5 mg per day to reduce sedation. increase VPA to 1250 mg daily and consolidate at HS. otherwise continue outpt meds regimen for now. 12/02: less sedated, but still sedated. feeling horrible, here to get back on her meds. less agitation today than yesterday. continue current mgmt. 12/03: Continues sedated; pt has difficulty staying awake during assessment. Observed falling asleep at desk in room. Patient reports feeling depressed and anxious d/t concerns someone by the name of Cass is going to stab her while she is sleeping . Pt reports visual hallucinations of family members . denies SI/HI/AH. per nursing, slept 8 hours. Ativan decreased to 0.5mg PO bedtime and Haldol changed to 10mg PO bedtime. 12/04: continues sedated. decrease methadone from 150 mg to 145 mg. DC ativan 0.5 mg at HS. otherwise continue current mgmt. no angry outbursts in the past 24H. delusional re device in her ear. 12/05: More awake today, but continues to have difficulty staying awake. Mumbled speech. difficult to understand at times. Paranoid, delusional. Patient focused on holograms ; she reports auditory and visual hallucinations. Pt stated, I see people trying to mock me . denies SI/HI. Haldol increased to 15mg PO bedtime. Cogentin increased to 1mg PO bedtime. Start: Colace 100mg PO bedtime. DC Thorazine 100mg PO Q6HR PRN 12/06: remains overly sedated. decrease methadone to 140 mg daily as of tomorrow. would minimize anti-cholinergic medications, such as cogentin, out of concern for exacerbation of delirium; return cogentin to 0.5 mg QHS. decrease haldol from 15 mg QHS to 10 mg QHS for now as well. repeat labs this evening. 12/07: Active on unit. more alert, not sedated today. patient reporting feeling fine ; she denies SI/HI/VH/AH. Pt stated, I'm not concerned about holograms . focused on discharge; 3 day up on 12/12/24, pt aware. continue current tx plan. 12/08 residual delusional content related to thinking family are behind her being here in the hospital and wanting her money. mild dystonic rx affecting speech, increased cogentin to 1mg po qhs with haldol Reason for continued inpatient stay Substantial Risk for: inability to function Time Spent With Patient Time: Total time managing care of this patient today ____ minutes.
[2024-12-08] MEDS: Nicotine Polacrilex 2 MG GUM 4 MG BUCCAL ×2 (10:53→17:23)
[2024-12-08] MEDS: hydrOXYzine HCL 25 MG TABLET PO ×2 (13:26→21:01)
[2024-12-08 20:00] VITALS: BP 90/56; PULSE 67; RESP 16; TEMP 37.1; O2SAT 98
[2024-12-08] MEDS: Divalproex Sodium 250 MG TABLET.DR 1250 MG PO (21:00)
[2024-12-08] MEDS: Benztropine Mesylate 0.5 MG TABLET PO (21:01)
[2024-12-08] MEDS: OLANZapine 5 MG TABLET PO (21:01)
[2024-12-08] MEDS: HaloperidoL 5 MG TABLET 10 MG PO (21:01)
[2024-12-08] MEDS: Docusate Sodium 100 MG CAPSULE PO (21:01)
[2024-12-09] MEDS: OLANZapine 5 MG TABLET PO ×2 (04:54→14:34)
[2024-12-09] MEDS: hydrOXYzine HCL 25 MG TABLET PO ×2 (04:54→14:34)
[2024-12-09 07:20] VITALS: BP 100/67; PULSE 51; RESP 14; TEMP 36.6; O2SAT 96
[2024-12-09] MEDS: methADONE HCl 20 MG/2 ML ORAL.CONC 140 MG PO (08:14)
[2024-12-09] MEDS: Nicotine 21 MG PATCH.TD24 TRANSDERMA (09:06)
[2024-12-09] MEDS: Ketoconazole 2 % Shampoo 120 ML BTL 1 APPL TOPICAL (11:37)
[2024-12-09 20:00] VITALS: BP 96/59; PULSE 59; RESP 14; TEMP 36.8; O2SAT 99
[2024-12-09] MEDS: Divalproex Sodium 250 MG TABLET.DR 1250 MG PO (20:21)
[2024-12-09] MEDS: HaloperidoL 5 MG TABLET 10 MG PO (20:23)
[2024-12-09] MEDS: Benztropine Mesylate 0.5 MG TABLET PO (20:23)
[2024-12-09] MEDS: Docusate Sodium 100 MG CAPSULE PO (20:24)
[2024-12-09] MEDS: Nicotine Polacrilex 2 MG GUM 4 MG BUCCAL (20:28)
--- NOTE | 2024-12-09 22:28 | P.PNPSI_ITS ---
Subjective Subjective Date of Service: 12/09/24 Reason For Visit: Crisis Interim History: Pt slept all night. She does say that all of this referring to the hospitalization is due to her family wanting her money. She asks about discharge several times, explained her 3 day is up on 12/12. She is taking medications, visible on the unit, social with select peers, no behavioral concerns. did increase cogentin mild dystonic rx affecting speech. Review of Systems Review of Systems Patient refused to answer specific review of system Yes Other Mental Status Exam Mental Status Exam Narrative: own clothes, improved hygiene. cooperative, alert. PMR. thought process more organized and linear. No overt delusional content- although suspect some residual content. no SI/HI/AVH expressed. Diagnostics Vital Signs (24Hr): Vital Signs - 24 hr 12/09/24 07:20 12/09/24 20:00 Temperature 97.8 F 98.2 F Pulse Rate 51 59 Respiratory Rate 14 14 Blood Pressure 100/67 96/59 L Pulse Oximetry 96 99 Oxygen Delivery Method Room Air Room Air BMI result Body Mass Index 22.4 Labs 12/06/24 20:38 12/06/24 20:38 Medications Medications Current Medications Acetaminophen (Acetaminophen 325 Mg Tablet) 650 mg PO Q6H PRN PRN Reason: Headache/Pain, Scale 1-10 Al Hydroxide/Mg Hydroxide (Magnesium Hydrox/Alum Hydrox 30 Ml Oral.Susp) 30 ml PO Q6H PRN PRN Reason: Heartburn/Nausea Benzocaine (Throat Lozenge, Medicated Lozenge) 1 lozenge MUCOUS MEM Q2H PRN PRN Reason: Sore Throat Last Admin: 12/04/24 20:11 Dose: 1 lozenge Benztropine Mesylate (Benztropine Mesylate 0.5 Mg Tablet) 0.5 mg PO BEDTIME EN Last Admin: 12/09/24 20:23 Dose: 0.5 mg Divalproex Sodium (Divalproex Sodium 250 Mg Tablet.) 1,250 mg PO BEDTIME EN Last Admin: 12/09/24 20:21 Dose: 1,250 mg Docusate Sodium (Docusate Sodium 100 Mg Capsule) 100 mg PO BEDTIME EN Last Admin: 12/09/24 20:24 Dose: 100 mg Haloperidol (Haloperidol 5 Mg Tablet) 10 mg PO BEDTIME EN Last Admin: 12/09/24 20:23 Dose: 10 mg Hydroxyzine HCl (Hydroxyzine Hcl 25 Mg Tablet) 25 mg PO Q6H PRN PRN Reason: mild anxiety Last Admin: 12/09/24 14:34 Dose: 25 mg Ketoconazole (Ketoconazole 2 % Shampoo 120 Ml Btl) 1 appl TOPICAL Q4D EN; Protocol Last Admin: 12/09/24 11:37 Dose: 1 appl Magnesium Hydroxide (Milk Of Magnesia 30 Ml Oral.Susp) 30 ml PO DAILY PRN PRN Reason: Constipation Methadone HCl (Methadone Hcl 20 Mg/2 Ml Oral.Conc) 140 mg PO DAILY@0800 EN Last Admin: 12/09/24 08:14 Dose: 140 mg Nicotine (Nicotine 21 Mg Patch.Td24) 21 mg TRANSDERMA DAILY [facility] Last Admin: 12/09/24 09:06 Dose: 21 mg Nicotine Polacrilex (Nicotine Polacrilex 2 Mg Gum) 4 mg BUCCAL Q2H PRN PRN Reason: Nicotine Cravings Last Admin: 12/09/24 20:28 Dose: 4 mg Olanzapine (Olanzapine 5 Mg Tablet) 5 mg PO Q4H PRN PRN Reason: agitation Last Admin: 12/09/24 14:34 Dose: 5 mg Allergies Allergies Allergy/AdvReac Type Severity Reaction Status Date / Time No Known Allergies Allergy Verified 11/30/24 06:13 [No Known Allergies*] Assessment & Plan Assessment & Plan (1) Schizophrenia: Status: Acute Code(s): F20.9 - Schizophrenia, unspecified (2) Cocaine use disorder: Status: Acute Code(s): F14.10 - Cocaine abuse, uncomplicated (3) Opioid use disorder: Status: Acute Code(s): F11.90 - Opioid use, unspecified, uncomplicated (4) PTSD (post-traumatic stress disorder): Status: Acute Code(s): F43.10 - Post-traumatic stress disorder, unspecified Plan 12/01: decrease methadone dosing by 5 mg per day to reduce sedation. increase VPA to 1250 mg daily and consolidate at HS. otherwise continue outpt meds regimen for now. 12/02: less sedated, but still sedated. feeling horrible, here to get back on her meds. less agitation today than yesterday. continue current mgmt. 12/03: Continues sedated; pt has difficulty staying awake during assessment. Observed falling asleep at desk in room. Patient reports feeling depressed and anxious d/t concerns someone by the name of Cass is going to stab her while she is sleeping . Pt reports visual hallucinations of family members . denies SI/HI/AH. per nursing, slept 8 hours. Ativan decreased to 0.5mg PO bedtime and Haldol changed to 10mg PO bedtime. 12/04: continues sedated. decrease methadone from 150 mg to 145 mg. DC ativan 0.5 mg at HS. otherwise continue current mgmt. no angry outbursts in the past 24H. delusional re device in her ear. 12/05: More awake today, but continues to have difficulty staying awake. Mumbled speech. difficult to understand at times. Paranoid, delusional. Patient focused on holograms ; she reports auditory and visual hallucinations. Pt stated, I see people trying to mock me . denies SI/HI. Haldol increased to 15mg PO bedtime. Cogentin increased to 1mg PO bedtime. Start: Colace 100mg PO bedtime. DC Thorazine 100mg PO Q6HR PRN 12/06: remains overly sedated. decrease methadone to 140 mg daily as of tomorrow. would minimize anti-cholinergic medications, such as cogentin, out of concern for exacerbation of delirium; return cogentin to 0.5 mg QHS. decrease haldol from 15 mg QHS to 10 mg QHS for now as well. repeat labs this evening. 12/07: Active on unit. more alert, not sedated today. patient reporting feeling fine ; she denies SI/HI/VH/AH. Pt stated, I'm not concerned about holograms . focused on discharge; 3 day up on 12/12/24, pt aware. continue current tx plan. 12/08 residual delusional content related to thinking family are behind her being here in the hospital and wanting her money. mild dystonic rx affecting speech, increased cogentin to 1mg po qhs with haldol 12/09 continue tx. Reason for continued inpatient stay Substantial Risk for: inability to function Time Spent With Patient Time: Total time managing care of this patient today ____ minutes.
[2024-12-10] MEDS: hydrOXYzine HCL 25 MG TABLET PO ×2 (00:43→10:39)
[2024-12-10 07:58] VITALS: BP 107/61; PULSE 58; RESP 16; TEMP 36.9; O2SAT 99
[2024-12-10] MEDS: methADONE HCl 20 MG/2 ML ORAL.CONC 140 MG PO (08:03)
[2024-12-10] MEDS: Nicotine 21 MG PATCH.TD24 TRANSDERMA (08:05)
[2024-12-10] MEDS: OLANZapine 5 MG TABLET PO (13:16)
[2024-12-10] MEDS: Nicotine Polacrilex 2 MG GUM 4 MG BUCCAL ×3 (14:10→20:42)
[2024-12-10 19:40] VITALS: BP 111/55; PULSE 56; RESP 16; TEMP 36.7; O2SAT 95
--- NOTE | 2024-12-10 20:34 | P.PNPSI_ITS ---
Subjective Subjective Date of Service: 12/10/24 Reason For Visit: Crisis Interim History: Pt slept all night. She does say that all of this referring to the hospitalization is due to her family wanting her money. She asks about discharge several times, explained her 3 day is up on 12/12. She is taking medications, visible on the unit, social with select peers, no behavioral concerns. did increase cogentin mild dystonic rx affecting speech. Review of Systems Review of Systems Patient refused to answer specific review of system Yes Other Mental Status Exam Mental Status Exam Narrative: own clothes, improved hygiene. cooperative, alert. PMR. thought process more organized and linear. No overt delusional content- although suspect some residual content. no SI/HI/AVH expressed. Diagnostics Vital Signs (24Hr): Vital Signs - 24 hr 12/10/24 07:58 12/10/24 19:40 Temperature 98.5 F 98.0 F Pulse Rate 58 56 Respiratory Rate 16 16 Blood Pressure 107/61 111/55 L Pulse Oximetry 99 95 Oxygen Delivery Method Room Air Room Air BMI result Body Mass Index 22.4 Labs 12/06/24 20:38 12/06/24 20:38 Medications Medications Current Medications Acetaminophen (Acetaminophen 325 Mg Tablet) 650 mg PO Q6H PRN PRN Reason: Headache/Pain, Scale 1-10 Al Hydroxide/Mg Hydroxide (Magnesium Hydrox/Alum Hydrox 30 Ml Oral.Susp) 30 ml PO Q6H PRN PRN Reason: Heartburn/Nausea Benzocaine (Throat Lozenge, Medicated Lozenge) 1 lozenge MUCOUS MEM Q2H PRN PRN Reason: Sore Throat Last Admin: 12/04/24 20:11 Dose: 1 lozenge Benztropine Mesylate (Benztropine Mesylate 1 Mg Tablet) 2 mg PO BEDTIME EN Divalproex Sodium (Divalproex Sodium 250 Mg Tablet.Dr) 1,250 mg PO BEDTIME EN Last Admin: 12/09/24 20:21 Dose: 1,250 mg Haloperidol (Haloperidol 5 Mg Tablet) 10 mg PO BEDTIME EN Last Admin: 12/09/24 20:23 Dose: 10 mg Hydroxyzine HCl (Hydroxyzine Hcl 25 Mg Tablet) 25 mg PO Q6H PRN PRN Reason: mild anxiety Last Admin: 12/10/24 10:39 Dose: 25 mg Ketoconazole (Ketoconazole 2 % Shampoo 120 Ml Btl) 1 appl TOPICAL Q4D EN; Protocol Last Admin: 12/09/24 11:37 Dose: 1 appl Magnesium Hydroxide (Milk Of Magnesia 30 Ml Oral.Susp) 30 ml PO DAILY PRN PRN Reason: Constipation Methadone HCl (Methadone Hcl 20 Mg/2 Ml Oral.Conc) 140 mg PO DAILY@0800 [facility] Last Admin: 12/10/24 08:03 Dose: 140 mg Nicotine (Nicotine 21 Mg Patch.Td24) 21 mg TRANSDERMA DAILY [facility] Last Admin: 12/10/24 08:05 Dose: 21 mg Nicotine Polacrilex (Nicotine Polacrilex 2 Mg Gum) 4 mg BUCCAL Q2H PRN PRN Reason: Nicotine Cravings Last Admin: 12/10/24 17:18 Dose: 4 mg Olanzapine (Olanzapine 5 Mg Tablet) 5 mg PO Q4H PRN PRN Reason: agitation Last Admin: 12/10/24 13:16 Dose: 5 mg Senna/Docusate Sodium (Sennosides/Docusate Sodium Tablet) 1 tab PO BEDTIME EN Trazodone HCl (Trazodone Hcl 50 Mg Tablet) 50 mg PO BEDTIME [facility] Allergies Allergies Allergy/AdvReac Type Severity Reaction Status Date / Time No Known Allergies Allergy Verified 11/30/24 06:13 [No Known Allergies*] Assessment & Plan Assessment & Plan (1) Schizophrenia: Status: Acute Code(s): F20.9 - Schizophrenia, unspecified (2) Cocaine use disorder: Status: Acute Code(s): F14.10 - Cocaine abuse, uncomplicated (3) Opioid use disorder: Status: Acute Code(s): F11.90 - Opioid use, unspecified, uncomplicated (4) PTSD (post-traumatic stress disorder): Status: Acute Code(s): F43.10 - Post-traumatic stress disorder, unspecified Plan 12/01: decrease methadone dosing by 5 mg per day to reduce sedation. increase VPA to 1250 mg daily and consolidate at HS. otherwise continue outpt meds regimen for now. 12/02: less sedated, but still sedated. feeling horrible, here to get back on her meds. less agitation today than yesterday. continue current mgmt. 12/03: Continues sedated; pt has difficulty staying awake during assessment. Observed falling asleep at desk in room. Patient reports feeling depressed and anxious d/t concerns someone by the name of Cass is going to stab her while she is sleeping . Pt reports visual hallucinations of family members . denies SI/HI/AH. per nursing, slept 8 hours. Ativan decreased to 0.5mg PO bedtime and Haldol changed to 10mg PO bedtime. 12/04: continues sedated. decrease methadone from 150 mg to 145 mg. DC ativan 0.5 mg at HS. otherwise continue current mgmt. no angry outbursts in the past 24H. delusional re device in her ear. 12/05: More awake today, but continues to have difficulty staying awake. Mumbled speech. difficult to understand at times. Paranoid, delusional. Patient focused on holograms ; she reports auditory and visual hallucinations. Pt stated, I see people trying to mock me . denies SI/HI. Haldol increased to 15mg PO bedtime. Cogentin increased to 1mg PO bedtime. Start: Colace 100mg PO bedtime. DC Thorazine 100mg PO Q6HR PRN 12/06: remains overly sedated. decrease methadone to 140 mg daily as of tomorrow. would minimize anti-cholinergic medications, such as cogentin, out of concern for exacerbation of delirium; return cogentin to 0.5 mg QHS. decrease haldol from 15 mg QHS to 10 mg QHS for now as well. repeat labs this evening. 12/07: Active on unit. more alert, not sedated today. patient reporting feeling fine ; she denies SI/HI/VH/AH. Pt stated, I'm not concerned about holograms . focused on discharge; 3 day up on 12/12/24, pt aware. continue current tx plan. 12/08 residual delusional content related to thinking family are behind her being here in the hospital and wanting her money. mild dystonic rx affecting speech, increased cogentin to 1mg po qhs with haldol 12/09 continue tx. 12/10 continue tx. Reason for continued inpatient stay Substantial Risk for: inability to function Time Spent With Patient Time: Total time managing care of this patient today ____ minutes.
[2024-12-10] MEDS: traZODone HCL 50 MG TABLET PO (20:40)
[2024-12-10] MEDS: Sennosides/Docusate Sodium TABLET 1 TAB PO (20:40)
[2024-12-10] MEDS: Benztropine Mesylate 1 MG TABLET 2 MG PO (20:41)
[2024-12-10] MEDS: HaloperidoL 5 MG TABLET 10 MG PO (20:41)
[2024-12-10] MEDS: Divalproex Sodium 250 MG TABLET.DR 1250 MG PO (20:41)
[2024-12-11 07:39] VITALS: BP 103/57; PULSE 55; RESP 16; TEMP 36.4; O2SAT 98
[2024-12-11] MEDS: Nicotine 21 MG PATCH.TD24 TRANSDERMA (08:03)
[2024-12-11] MEDS: methADONE HCl 20 MG/2 ML ORAL.CONC 140 MG PO (08:03)
[2024-12-11 08:59] LABS: Hepatitis A Antibody IgM 0.17 Index (0-0.79); ~Hepatitis A Antibody IgM Nonreactive (Nonreactive)
--- NOTE | 2024-12-11 09:42 | P.DS_ITS ---
DS: Providers Provider Date of Service: 12/11/24 Date of admission: 11/30/24 15:08 Date of discharge: 12/11/24 Primary care physician: Unknown Physician Attending physician on admission: Aman Frazier Attending physician on discharge: Rich Gonzalez Discharging clinician: Slime Barajas DS: Diagnosis Discharge Diagnosis (1) Schizophrenia: Status: Acute (2) Cocaine use disorder: Status: Acute (3) Opioid use disorder: Status: Acute (4) PTSD (post-traumatic stress disorder): Status: Acute DS: Medications Discharge Medications Home Medications: Home Medications ?Medication ?Instructions ?Recorded ?Confirmed methadone 10 mg/mL oral concentrate 155 mg PO DAILY ##0 06/28/24 11/30/24 Mental Status Exam Mental Status Exam Narrative: Pt is alert and oriented; behavior is cooperative and calm; dressed in casual attire; mood is described as good ; eye contact appropriate; Speech is normal rate, volume and not pressured; thought process is organized; Thought content is on discharge; denies SI/HI/VH/AH. Data Data Completed and Pending Completed studies during hospitalization [Text1]: 12/05/24 12/06/24 12/06/24 13:19 12:30 20:38 WBC 3.5 L 3.4 L RBC 3.93 L 3.86 L Hgb 11.8 L 11.7 L Hct 36.9 L 36.1 L MCV 93.9 93.5 MCH 30.0 30.3 MCHC 32.0 32.4 RDW 13.2 13.2 Plt Count 153 L D 144 L MPV 11.1 11.3 Immature Gran % (Auto) 0.3 0.3 Neut % (Auto) 33.0 L 34.1 L Lymph % (Auto) 53.6 H 50.9 H [place] % (Auto) 8.1 10.6 Eos % (Auto) 4.1 H 3.8 Baso % (Auto) 0.9 0.3 Lymph # (Auto) 1.9 1.7 [place] # (Auto) 0.3 0.4 Eos # (Auto) 0.1 0.1 Baso # (Auto) 0.0 0.0 Abs Immat Gran (auto) 0.01 0.01 Absolute Neuts (auto) 1.1 L 1.2 L Absolute Nucleated RBC 0.000 0.000 Nucleated RBC % (auto) 0.0 0.0 Sodium 141 140 Potassium 4.6 4.4 Chloride 106 105 Carbon Dioxide 30 H 27 Anion Gap 10 L 12 BUN 18 H 18 H Creatinine 0.85 0.72 Estim Creat Clear Calc 77.9 92.5 Estimated GFR > 60 > 60 Random Glucose 84 107 Estimat Average Glucose 105 Hemoglobin A1c % 5.3 Calcium 8.8 8.9 Total Bilirubin 0.2 Direct Bilirubin < 0.2 AST 20 ALT 11 Alkaline Phosphatase 54 Ammonia 46 54 Total Protein 6.3 L Albumin 3.9 TSH 2.38 Urine Color Yellow Urine Appearance Clear Urine pH 7.5 Ur Specific [place] 1.025 Urine Protein Negative Urine Glucose (UA) Negative Urine Ketones Trace Urine Blood Moderate (2+) H Urine Nitrite Negative Ur Leukocyte Esterase Negative Urine RBC >20 H Urine WBC 0-5 Ur Squamous Epith Cells 0-2 Urine Bacteria None Seen Hyaline Casts 0-2 Valproic Acid 69.0 42.0 L T.pallidum Ab (EIA) Nonreactive Chlam trachomat DNA PCR NOT DETECTED Hepatitis A IgM Ab Nonreactive Hep Bs Antigen Negative Hep Bs Antibody REACTIVE Hep B Core Total Ab Nonreactive Hepatitis C Ab (EIA) Nonreactive HIV 1&2 Ab/P24 Ag 4thGn Nonreactive N.gonorrhoeae DNA (PCR) NOT DETECTED DS: Summary Hospital Course Hospital Course: patient unable to remain awake during interview. history is taken from medical record. homeless 39 yo female was BIBA after her partner called EMS due to pt's paranoid, pressured, agitated behaviors. she believed a woman was trying to kill her. she reported that her BF is a hologram who did electric shock and brain synagogue on me. she was described as hyperverbal and pressured by CARE team staff. pt reports she had been sleeping poorly and using crack cocaine, as well as not taking her medications. she asserts she is a participant in the Will and Testament Trial. she holds various paranoid delusions regarding this trial. she asserrts to staff that she is a camera. states she had a chip in her ear which she clawed out, showing CARE team staff scabbed skin on her ear. etc. on methadone maintenance. on interview, pt serially nodding off. able to say her mood was so-so and denied SI/HI/AVH. decrease methadone dosing by 5 mg per day to reduce sedation. increase VPA to 1250 mg daily and consolidate at HS. otherwise continue outpt meds regimen for now. less sedated, but still sedated. feeling horrible, here to get back on her meds. less agitation today than yesterday. continue current mgmt. Continues sedated; pt has difficulty staying awake during assessment. Observed falling asleep at desk in room. Patient reports feeling depressed and anxious d/t concerns someone by the name of Cass is going to stab her while she is sleeping . Pt reports visual hallucinations of family members . denies SI/HI/AH. per nursing, slept 8 hours. Ativan decreased to 0.5mg PO bedtime and Haldol changed to 10mg PO bedtime. continues sedated. decrease methadone from 150 mg to 145 mg. DC ativan 0.5 mg at HS. otherwise continue current mgmt. no angry outbursts in the past 24H. delusional re device in her ear. More awake today, but continues to have difficulty staying awake. Mumbled speech. difficult to understand at times. Paranoid, delusional. Patient focused on holograms ; she reports auditory and visual hallucinations. Pt stated, I see people trying to mock me . denies SI/HI. Haldol increased to 15mg PO bedtime. Cogentin increased to 1mg PO bedtime. Start: Colace 100mg PO bedtime. DC Thorazine 100mg PO Q6HR PRN remains overly sedated. decrease methadone to 140 mg daily as of tomorrow. would minimize anti-cholinergic medications, such as cogentin, out of concern for exacerbation of delirium; return cogentin to 0.5 mg QHS. decrease haldol from 15 mg QHS to 10 mg QHS for now as well. repeat labs this evening. Active on unit. more alert, not sedated today. patient reporting feeling fine ; she denies SI/HI/VH/AH. Pt stated, I'm not concerned about holograms . focused on discharge; 3 day up on 12/12/24, pt aware. continue current tx plan. residual delusional content related to thinking family are behind her being here in the hospital and wanting her money. mild dystonic rx affecting speech, increased cogentin to 1mg po qhs with haldol 3 day up 12/12/24. Patient reports feeling good and ready to leave ; denies SI/HI/VH/AH. Patient reports she plans on following up with outpatient providers. Status at Discharge Cognitive/behavioral status at discharge: Patient has insight and demonstrates good judgment in terms of wanting to pursue treatment. Patient has a safety plan that includes presenting to the closest ER or calling 911 if feeling unsafe. Functional status at discharge: independent ambulation Overall status at discharge: patient is back to baseline Time Spent with Patient Time attestation: Total time managing care of this patient today _20___ minutes. Time spent: Less than 30 minutes Discharge Plan Discharge Anticipated Discharge Date/Time: 12/11/24 09:47 Patient Disposition: Home, Self-Care Discharge Diagnosis: Schizophrenia, PTSD, opioid use d/o, cocaine use d/o Referrals: [facility] [Other] - 1 Week (walk in hours are Tuesday-Tuesday 8am-8pm, weekend hours are 9am-6pm Please bring your discharge paperwork, ID and insurance card with you. ) [facility] [Provider Group] - 1 Week (12-04-24 [facility] was added to patients chart. Please call [phone] to schedule a follow up appt within 7-10 days of discharge. No release-no PCP on file) Discharge Medications: New methadone [Methadose] 10 mg/mL Concentrate 140 mg PO DAILY@0800 Qty: 0 0RF Rx Instructions: Partial Fill upon patient request. haloperidol 10 mg tablet 10 mg PO BEDTIME 30 Days Qty: 30 0RF divalproex 250 mg Tablet,Delayed Release (Dr/Ec) 1,250 mg PO BEDTIME 7 Days Qty: 35 3RF Discontinued methadone 10 mg/mL Concentrate 155 mg PO DAILY Qty: 0 Discharge Orders: Discharge Order (Routine); Ordered 12/11/24 Ordered By: Slime Barajas Diet: Regular diet Activity on Discharge: As tolerated Stand Alone Forms: Patient Portal Discharge page, Community Support Print Language: Wallisian Care Plan Goals: Maintain mood and safe behaviors Take medications as prescribed Continue to pursue sobriety Practice coping skills Continue with outpatient providers and reach out to them as needed Health Concerns: Mood stability and behaviors Sobriety Plan of Treatment: Follow up with your PCP, psychiatric provider and other outpatient providers regarding above concerns Take medications as prescribed Assessment: Patient has insight and demonstrates good judgment in terms of wanting to pursue treatment. Patient has a safety plan that includes presenting to the closest ER or calling 911 if feeling unsafe. Discharge Date/Time: 12/11/24 10:15
[2024-12-11] MEDS: Naloxone HCl Nasal TAKE HOME 4 MG SPRAY 8 MG NOSTRILALT (09:58)
== END 2024-12-11 10:15 | disposition home or self-care (01) | DRG 750 ==
LOC: HO.ED 12:49 → HO.PADLT16 15:28
PROVIDERS: Emergency Medicine; Psychiatry & Neurology Psychiatry; Admitting Provider Registered Nurse; Emergency Provider Emergency Medicine Emergency Medical Services; Responsible Provider Registered Nurse; Visit Provider Psychiatry & Neurology Psychiatry
DX: F20.9 Schizophrenia, unspecified (principal); F11.20 Opioid dependence, uncomplicated; F17.210 Nicotine dependence, cigarettes, uncomplicated; F14.10 Cocaine abuse, uncomplicated; F43.10 Post-traumatic stress disorder, unspecified; Z71.6 Tobacco abuse counseling; Z59.02 Unsheltered homelessness; Z79.899 Other long term (current) drug therapy
CPT/HCPCS: 36415; 80048; 80053; 80061; 80076; 80143; 80164; 80179; 80307; 81001; 82140; 83036; 83735; 84443; 84702; 85025; 86704; 86706; 86709; 86780; 86803; 87340; 87389; 87491; 87591; 93005; 99284; J1630; S9485

== ENCOUNTER → 2024-11-30 15:08 | Outpatient (BNV) | payer MEDICAID, SELFPAY | PROVIDERS: Admitting Provider Registered Nurse; Emergency Provider Emergency Medicine Emergency Medical Services; Visit Provider Internal Medicine Cardiovascular Disease | DX: R00.1 Bradycardia, unspecified (principal) | CPT/HCPCS: 93010 ==

== ENCOUNTER → 2024-11-30 15:08 | Outpatient (BNV) | payer OTHER, SELFPAY | PROVIDERS: Admitting Provider Registered Nurse; Emergency Provider Emergency Medicine Emergency Medical Services; Visit Provider Psychiatry & Neurology Psychiatry | DX: F20.0 Paranoid schizophrenia (principal); F14.10 Cocaine abuse, uncomplicated; F11.90 Opioid use, unspecified, uncomplicated; F43.11 Post-traumatic stress disorder, acute | CPT/HCPCS: 99233 ==

== ENCOUNTER 2025-03-01 03:45 | Inpatient (IN) | payer MEDICAID, OTHER, SELFPAY ==
[2025-03-01] VITALS (9 sets, daily range): BP systolic 98–120; BP diastolic 56–82; PULSE 45–77; RESP 12–20; TEMP 36.5–37.1; O2SAT 97–100; BMI 24.0
--- NOTE | 2025-03-01 | ECG_ITS ---
Test Reason : check for prolong qt Blood Pressure : */* mmHG Vent. Rate : 47 BPM Atrial Rate : 47 BPM P-R Int : 166 ms QRS Dur : 86 ms QT Int : 530 ms P-R-T Axes : 72 61 75 degrees QTcB Int : 469 ms Sinus bradycardia T wave abnormality, consider anterior ischemia Prolonged QT Abnormal ECG When compared with ECG of 02-Dec-2024 11:21, T wave inversion now evident in Anterior leads QT has lengthened Referred By: Elin Palacios Electronically Signed By: Abdon Carias
--- NOTE | 2025-03-01 04:02 | ED_ITS ---
HPI - Psych General Chief Complaint: Psychiatric Symptoms Stated Complaint: crisis Time Seen by Provider: 03/01/25 03:52 Source: patient and EMS Mode of arrival: EMS Limitations: other History of Present Illness ED Provider: Dr. Elin Palacios HPI Narrative: Patient comes to the emergency room via ambulance. Patient's boyfriend call PD because the patient was acting erratic. According to PD, patient is feeling voices and responding to them. Patient believes that she is seeing people out in the [place], patient is chasing people down the hill that are not there. Patient states that a powerhouse attendant from the [employer] went to visit her in the ter[place] did tell her that her friends and parents are . Patient has stopped taking her medications a few weeks ago. Patient denies SI or HI. However, patient clearly believes that she is seeing this people that are not there. Patient was section 12 by PD and brought to emergency room. Related Data Home Medications ?Medication ?Instructions ?Recorded ?Confirmed methadone 10 mg/mL oral 150 mg PO DAILY@0800 5 03/01/25 concentrate (Methadose) Allergies Allergy/AdvReac Type Severity Reaction Status Date / Time No Known Allergies (No Known Allergy Verified 03/01/25 03:59 Allergies*) Review of Systems 2 Review of Systems: Constitutional : No Weight loss, No Fever, No Chills, No Night Sweats, No Fatigue, No Malaise ENT/Mouth : No Hearing loss, No Ear Pain, No Nasal Congestion, No Sinus Pain, No Hoarseness, No sore throat, No Rhinorrhea, No Swallowing Difficulty Eyes: No Eye Pain, No Swelling, No Redness, No Foreign Body, No Discharge, No Vision Changes Cardiovascular : No Chest Pain, No SOB, No Dyspnea on Exertion, No Orthopnea, No Edema, No Palpitations Respiratory : No Cough, No Sputum, No Wheezing, No Smoke Exposure, No Dyspnea Gastrointestinal : No Nausea, No Vomiting, No Diarrhea, No Constipation, No abdominal Pain, No Hematochezia, No Melena Genitourinary : no irregular bleeding, No Dysuria, No Urinary Frequency, No Hematuria, No Urinary Incontinence, No Urgency, No Flank Pain, No Urinary Flow Changes, No Hesitancy Musculoskeletal : No joint pain, No Myalgias, No Joint Swelling Skin : No Skin Lesions, No rash Neuro : No Weakness, No Numbness, No Paresthesias, No Loss of Consciousness, No Dizziness, No Headache Psych : Patient convinced that she is seeing people and talking to her, patient having conversations Heme/Lymph: No Bruising, No Bleeding,No Lymphadenopathy Endocrine : No Polyuria, No Polydipsia, No Temperature Intolerance PMFSH Past Medical History Medical History Schizophrenia PTSD (post-traumatic stress disorder) Opioid use disorder Cocaine use disorder Social History Social History Household Members: Significant Other Housing: Homeless Housing Other[facility] [place] [facility] [place] [facility] [place] Do you presently have visiting nurse or other home services: No Unable to assess alcohol history related to: Refusing to respond Patient Tobacco Use Status: Current everyday Tobacco user Tobacco use type: Cigarette Smoked in Last 30 Days: Yes e-Cigarette/Vaping Use: Former Use Second Hand Smoke Exposure: Yes (boyfriend smokes) Use of substances other than those prescribed or required for medical reasons: Refusing to respond Substance Use Type: Crack/Cocaine Advance Directives: No Advance Directives Information Provided: No service: No Sexual orientation: Straight/Heterosexual Physical Exam 2 Vital Signs: Vital Signs: Last Vital Signs Temp 97.6 F 03/02/25 00:36 Pulse 64 03/02/25 00:36 Resp 16 03/02/25 00:36 BP 109/67 03/02/25 00:36 Pulse Ox 99 03/02/25 00:36 O2 Del Method Room Air 03/02/25 00:36 BMI result Body Mass Index 24.0 Const: Other: Appearance: Alert. Oriented X3. No acute distress. Eyes: Pupils equal, round and reactive to light. ENT: Pharynx normal. Neck: Normal inspection. Neck supple. No lymph nodes noted. No crepitus CVS: Normal heart rate and rhythm. Pulses normal. Normal S1 and S2 Respiratory: No respiratory distress. Breath sounds normal. No Wheezing. No rales Abdomen: Soft and nontender. No rigidity. No distention. Skin: Skin warm and dry. Normal skin color. Normal skin turgor. Extremities: No lower extremity edema. No Lacerations. No Rash Neuro: Oriented X 3. No motor deficit. No sensory deficit. Moving all extremities. No slurred speech. CN 2 through 12 grossly intact Psych: Agitated, convinced that she saw people, powerhouse attendant, patient having conversations with people who do not exist, overall patient is very delusional, tangential speech Course Course Course Narrative: Patient came on a Section 12 All of patient's labs pending Care team consult pending Patient agreeable to take p.o. minutes Physician observation started at 04:14 Medications Administered Generic Name Dose Route Start Last Admin Trade Name Freq PRN Reason Stop Dose Admin Methadone HCl 150 mg 03/02/25 08:00 03/01/25 16:52 Methadone Hcl 20 Mg/2 Ml Oral.Conc PO 150 mg DAILY@0800 EN Administration Discontinued Medications Generic Name Dose Route Start Last Admin Trade Name Freq PRN Reason Stop Dose Admin Diphenhydramine HCl 50 mg 03/01/25 04:00 03/01/25 04:13 Diphenhydramine Hcl 25 Mg Capsule PO 03/01/25 04:01 50 mg ONCE ONE Administration Haloperidol 5 mg 03/01/25 04:00 03/01/25 04:12 Haloperidol 5 Mg Tablet PO 03/01/25 04:01 5 mg ONCE ONE Administration Lorazepam 2 mg 03/01/25 04:00 03/01/25 04:13 Lorazepam 1 Mg Tablet PO 03/01/25 04:01 2 mg ONCE ONE Administration Lorazepam 2 mg 03/01/25 12:59 03/01/25 13:05 Lorazepam 2 Mg/Ml Vial IM 03/01/25 13:00 2 mg STAT STA Administration Olanzapine 5 mg 03/01/25 12:59 03/01/25 13:05 Olanzapine 10 Mg Vial IM 03/01/25 13:00 5 mg STAT STA Administration Medical Decision Making Medical Decision Making [facility] Narrative: my interpretation of labs: No significant abnormality in patient's hematology and chemistry, troponin x2 negative, hCG negative, urinalysis negative for UTI, urine toxicology positive for opiates, methadone, fentanyl, cocaine, THC Differential Diagnosis Differential Diagnoses: The differential diagnosis associated with the presentation includes (Schizophrenia, polysubstance abuse, delusional, manic) Admission/Observation Consideration of admission/observation: Escalation of care including admission/observation considered (Patient acutely decompensated, we will likely need inpatient level of care) Lab Data 03/01/25 07:28 03/01/25 07:28 Labs: Lab Results 03/01/25 03/01/25 03/01/25 Range/Units 07:28 09:00 18:58 WBC 6.6 (4.8-10.8) X10*3/uL RBC 3.91 L (4.20-5.50) X10*6/uL Hgb 12.0 (12.0-16.0) g/dl Hct 35.4 L (37.0-47.0) % MCV 90.5 (80.0-98.0) fL MCH 30.7 (27.0-33.0) pg MCHC 33.9 (31.0-35.0) g/dl RDW 12.3 (11.0-16.0) % Plt Count 162 (160-400) X10*3/uL MPV 10.8 (9.4-12.3) fL Immature Gran % (Auto) 0.3 (0.0-0.4) % Neut % (Auto) 62.7 (45-73) % Lymph % (Auto) 28.2 (20-40) % [place] % (Auto) 7.6 (2-11) % Eos % (Auto) 0.6 (0-4) % Baso % (Auto) 0.6 (0-2) % Lymph # (Auto) 1.9 (1.2-4.9) X10*3/uL [place] # (Auto) 0.5 (0.1-1.2) X10*3/uL Eos # (Auto) 0.0 (0.0-0.4) X10*3/uL Baso # (Auto) 0.0 (0.0-0.2) X10*3/uL Abs Immat Gran (auto) 0.02 (0.00-0.03) X10*3/uL Absolute Neuts (auto) 4.1 (2.0-8.3) x10*3/uL Absolute Nucleated RBC 0.000 (0.0-0.012) X10*3/uL Nucleated RBC % (auto) 0.0 (0.0-0.2) /100WBC Sodium 139 (135-145) mmol/L Potassium 3.8 (3.3-5.1) mmol/L Chloride 105 (96-108) mmol/L Carbon Dioxide 26 (22-29) mmol/L Anion Gap 12 (12-20) BUN 12 (9-16) mg/dL Creatinine 0.71 (0.5-1.4) mg/dL Estim Creat Clear Calc 89.1 Estimated GFR > 60 Random Glucose 101 (60-115) mg/dL Calcium 8.7 (8.4-10.2) mg/dL Magnesium 2.0 (1.6-2.6) mg/dL Total Bilirubin 0.2 (0.0-1.0) mg/dL Direct Bilirubin < 0.2 (0.0-0.5) mg/dL AST 22 (5-31) U/L ALT 9 (0-31) U/L Alkaline Phosphatase 54 (39-117) U/L Troponin I High Sens < 2.7 (<3.5-17.0) ng/L Total Protein 6.2 L (6.5-8.0) g/dL Albumin 4.2 (3.5-5.0) g/dL Beta HCG, Quant < 2 mIU/mL Urine Color Yellow Urine Appearance Clear Urine pH 6.5 (5.0-9.0) Ur Specific [place] 1.025 (1.005-1.025) Urine Protein Trace (Neg-Trace) mg/dL Urine Glucose (UA) Negative (Negative) mg/dL Urine Ketones Trace (Negative) mg/dL Urine Blood Negative (Negative) Urine Nitrite Negative (Negative) Ur Leukocyte Esterase Negative (Negative) Urine Opiates Screen POSITIVE H (Not Detect) Ur Buprenorphine Scrn Not Detected (Not Detect) ng/mL Ur Oxycodone Screen Not Detected (Not Detect) ng/mL Urine Methadone Screen Positive H (Not Detect) ng/mL Urine Fentanyl Screen POSITIVE H (Not Detect) Ur Barbiturates Screen Not Detected (Not Detect) Ur Phencyclidine Scrn Not Detected (Not Detect) Ur Amphetamines Screen Not Detected (Not Detect) U Benzodiazepines Scrn Not Detected (Not Detect) Urine Cocaine Screen POSITIVE H (Not Detect) U Marijuana (THC) Screen POSITIVE H (Not Detect) Ethyl Alcohol < 10 mg/dL 03/01/25 Range/Units 21:17 WBC (4.8-10.8) X10*3/uL RBC (4.20-5.50) X10*6/uL Hgb (12.0-16.0) g/dl Hct (37.0-47.0) % MCV (80.0-98.0) fL MCH (27.0-33.0) pg MCHC (31.0-35.0) g/dl RDW (11.0-16.0) % Plt Count (160-400) X10*3/uL MPV (9.4-12.3) fL Immature Gran % (Auto) (0.0-0.4) % Neut % (Auto) (45-73) % Lymph % (Auto) (20-40) % [place] % (Auto) (2-11) % Eos % (Auto) (0-4) % Baso % (Auto) (0-2) % Lymph # (Auto) (1.2-4.9) X10*3/uL [place] # (Auto) (0.1-1.2) X10*3/uL Eos # (Auto) (0.0-0.4) X10*3/uL Baso # (Auto) (0.0-0.2) X10*3/uL Abs Immat Gran (auto) (0.00-0.03) X10*3/uL Absolute Neuts (auto) (2.0-8.3) x10*3/uL Absolute Nucleated RBC (0.0-0.012) X10*3/uL Nucleated RBC % (auto) (0.0-0.2) /100WBC Sodium (135-145) mmol/L Potassium (3.3-5.1) mmol/L Chloride (96-108) mmol/L Carbon Dioxide (22-29) mmol/L Anion Gap (12-20) BUN (9-16) mg/dL Creatinine (0.5-1.4) mg/dL Estim Creat Clear Calc Estimated GFR Random Glucose (60-115) mg/dL Calcium (8.4-10.2) mg/dL Magnesium (1.6-2.6) mg/dL Total Bilirubin (0.0-1.0) mg/dL Direct Bilirubin (0.0-0.5) mg/dL AST (5-31) U/L ALT (0-31) U/L Alkaline Phosphatase (39-117) U/L Troponin I High Sens < 2.7 (<3.5-17.0) ng/L Total Protein (6.5-8.0) g/dL Albumin (3.5-5.0) g/dL Beta HCG, Quant mIU/mL Urine Color Urine Appearance Urine pH (5.0-9.0) Ur Specific [place] (1.005-1.025) Urine Protein (Neg-Trace) mg/dL Urine Glucose (UA) (Negative) mg/dL Urine Ketones (Negative) mg/dL Urine Blood (Negative) Urine Nitrite (Negative) Ur Leukocyte Esterase (Negative) Urine Opiates Screen (Not Detect) Ur Buprenorphine Scrn (Not Detect) ng/mL Ur Oxycodone Screen (Not Detect) ng/mL Urine Methadone Screen (Not Detect) ng/mL Urine Fentanyl Screen (Not Detect) Ur Barbiturates Screen (Not Detect) Ur Phencyclidine Scrn (Not Detect) Ur Amphetamines Screen (Not Detect) U Benzodiazepines Scrn (Not Detect) Urine Cocaine Screen (Not Detect) U Marijuana (THC) Screen (Not Detect) Ethyl Alcohol mg/dL Critical Care Time Critical Care Time Critical Care Time: Yes Total Critical Care Time: 35 Attestation: I have personally provided critical care time. Time includes review of lab data, radiology results, discussion with consultants, and monitoring for potential decompensation. Intervention performed as documented. Discharge Plan Discharge Clinical Impression: Schizophrenia Prescriptions: No Action methadone [Methadose] 10 mg/mL concentrate 150 mg PO DAILY@0800 Rx Instructions: Partial Fill upon patient request. Interventions: [place]-Suicide Risk Severity Scale Last Done: 03/01/25 04:00 Print Language: Unable To Collect
--- OUTSIDE RECORDS SUMMARY | 2025-03-01 06:13 | XMS_ITS | Encounter Summary ---
Author Organization [employer] Address [address] [place] [address] Care Team Providers Care First Calender Worker Name Role Phone Anastasiia Penaloza MD Primary Care Provider [phone] Reason for Visit * Reason Comments Med Refill Encounter Details Date Type Department Care Team ([facility] st Contact Info) Description 10/31/2023 Refill [facility] MED[facility]INE [address] [place] [address] Erika Marcus MD [address] [place] [address] Nicotine use disorder Social History Tobacco Use [...] documented as of this encounter Care Teams First Calender Worker Relationship Specialty Start Date End Date Anastasiia Penaloza MD [address] [place] [address] PCP - General Family Medicine 10/27/23 Aly Johnson MD Consulting Physician Dermatology 07/06/23 documented as of this encounter
--- NOTE | 2025-03-01 07:31 | PC.NURSE ---
Pt wakes to physical stimuli, falls asleep mid-sentence; unable to answer questions regarding drug or ETOH use; blood work being drawn per orders at this time; pt on fall precautions because of obtunded presentation; vss; sitter in place for safety
[2025-03-01 07:33] LABS: MANUAL DIFF FLAG NO
[2025-03-01 07:43] LABS: Hematocrit 35.4 % (37.0-47.0); Hemoglobin 12.0 g/dl (12.0-16.0); Imm Gran Abs Auto 0.02 X10*3/uL (0.00-0.03); Imm Gran Pct Auto 0.3 % (0.0-0.4); Lymphocytes Absolute Auto 1.9 X10*3/uL (1.2-4.9); Mean Corpuscular HGB Conc 33.9 g/dl (31.0-35.0); Mean Corpuscular Hemoglobin 30.7 pg (27.0-33.0); Mean Corpuscular Volume 90.5 fL (80.0-98.0); NRBC Abs Auto 0.000 X10*3/uL (0.0-0.012); NRBC Pct Auto 0.0 /100WBC (0.0-0.2); Platelet Count 162 X10*3/uL (160-400); Red Blood Count 3.91 X10*6/uL (4.20-5.50); White Blood Count 6.6 X10*3/uL (4.8-10.8)
[2025-03-01 07:57] LABS: Alanine Aminotransferase 9 U/L (0-31); Albumin Level 4.2 g/dL (3.5-5.0); Alkaline Phosphatase 54 U/L (39-117); Anion Gap 12 (12-20); Aspartate Amino Transferase 22 U/L (5-31); Blood Urea Nitrogen 12 mg/dL (9-16); Calcium 8.7 mg/dL (8.4-10.2); Carbon Dioxide 26 mmol/L (22-29); Chloride 105 mmol/L (96-108); Creatinine Clr Calc Pharmacy 89.1; Estimated Glomerular Filt Rate > 60; Magnesium 2.0 mg/dL (1.6-2.6); Potassium 3.8 mmol/L (3.3-5.1); Sodium 139 mmol/L (135-145); Total Protein 6.2 g/dL (6.5-8.0)
[2025-03-01 09:17] LABS: Cannabinoid Screen Urine POSITIVE (Not Detect)
[2025-03-01 09:20] LABS: Appearance Urine Clear; Glucose Urine UA Negative (Negative); PH 6.5 (5.0-9.0); Specific Gravity - Urine 1.025 (1.005-1.025)
--- NOTE | 2025-03-01 12:49 | PC.NURSE ---
Pt awake at this time, pacing, anxious, demanding her methadone; [facility]
[2025-03-01] MEDS: OLANZapine 10 MG VIAL 5 MG IM (13:05)
[2025-03-01] MEDS: LORazepam 2 MG/ML VIAL IM (13:05)
--- NOTE | 2025-03-01 13:06 | MHC.EDTECH ---
Patient arrives to pod with security present. Patient upset that she is being brought into the pod. Patient arrived with bracelet on wrist and hair in wrap and a hair tie.
--- NOTE | 2025-03-01 13:09 | PC.NURSE ---
Pt informed that she was going to pod; pt became resistant and angry, refusing to go; security called and pt walked to pod; emotional reassurance given; pt placed in room 2; pt remained upset, but did not require physical restraints; pt did require chemical restraint, administered by EROS Puentes after in-person report gv by this RN; pt's methadone dose verified by this RN and form faxed to pharmacy; last dose was 02/28/25 150mg at [facility]; care relinquished at this time
--- NOTE | 2025-03-01 13:16 | HE.PHANOTE ---
Methadone Methadone verification form reeived from Haritha Amos. Patient gets 150 mg of methadone from [facility] ). Verified with EROS Portillo, at clinic. Last methadone dose was 02/28/25
--- NOTE | 2025-03-01 14:59 | PC.NURSE ---
Upon arrival to the pod, patient was agitated, threatening staff and attempted to charge at CARE team clinician. Security redirected patient physically to [facility]. Order for IM medication placed by DO Contreras. Pt received IM meds without issue, no physical hold necessary. Pt now resting in bed, appears to be sleeping, respirations even and unlabored
[2025-03-01] MEDS: methADONE HCl 20 MG/2 ML ORAL.CONC 150 MG PO (16:52)
--- NOTE | 2025-03-01 17:13 | MHC.EDTECH ---
PATIENTS BELONGINGS MOVED TO [facility]
--- NOTE | 2025-03-01 18:50 | PC.NURSE ---
Pts HR decreased in 40s, EKG obtained, DR. Salazar aware. Plan for troponin
[2025-03-01 19:30] LABS: Troponin-I High Sensitivity < 2.7 ng/L (<3.5-17.0)
--- NOTE | 2025-03-01 21:00 | PC.NURSE ---
assumed care of pt at 1900, pt sleeping respirations even and unlabored, VSS. Redraw completed, trop WNL. continous to be bradycardic, asymptomatic. Safety precautions in place, Q15min checks in place, plan of care on going.
[2025-03-01 21:49] LABS: Troponin-I High Sensitivity < 2.7 ng/L (<3.5-17.0)
[2025-03-02 00:36] VITALS: BP 109/67; PULSE 64; RESP 16; TEMP 36.4; O2SAT 99
--- NOTE | 2025-03-02 00:40 | PC.NURSE ---
pt no longer bradycardic, no complaint of symptoms, VSS, plan of care ongoing
[2025-03-02 06:36] VITALS: BP 106/65; PULSE 67; RESP 22; TEMP 36.6; O2SAT 98
--- NOTE | 2025-03-02 07:04 | PC.NURSE ---
Assumed care of patient at 0645, patient appears to be in no apparent distress this am, appears to be sleeping, respirations even and unlabored. Continue plan of care for S12 IPLOC
--- NOTE | 2025-03-02 08:27 | PC.NURSE ---
Holding methadone until later in day due to delayed dose yesterday (given around 1600)
[2025-03-02] MEDS: methADONE HCl 20 MG/2 ML ORAL.CONC 150 MG PO (10:33)
--- NOTE | 2025-03-02 10:45 | PC.NURSE ---
Pt charged out of her room to the nurses station demanding to know why she is still here. This RN attempted to educate patient however she continued to interrupt mid sentences, threatening staff I am gonna fucking joanne all of you bitches, fuck this, you are gonna get a big fat suing out of me . pt did ambulate with steady gait back to her room however immediately returned to nurses station and accused staff of not administering her methadone yesterday. This Rn again attempted to educated patient that she did receive her methadone as this RN is the one that gave it to her. Pt charged back to her room, slammed the door and then laid down.
[2025-03-02 12:41] VITALS: RESP 20
[2025-03-02 13:42] VITALS: BMI 20.6
--- NOTE | 2025-03-02 18:26 | PC.NURSE ---
Lindsey arrived from the pod at 12:40 on a 12B for psychosis. Her partner of 7 years called the police due to her erratic behavior. Per crisis report, he states that she was not sleeping for days and was stating that she was being chased through the ter[place]. She signed a CV which was rejected. She insisted on signing because she believed that she would get out faster on 3-day notice and thought that both RN and MD were lying when telling her that this was not the case and she ought to remain on section 12B.? She likely now believes that she is on a 3-day notice and is unwilling to discuss with staff. She has been inpatient before and has received involuntary substance abuse treatment via section 35 multiple times. These experiences have been traumatic for her and she adamantly does not want to be in the hospital. She received a medication restraint due to agitation upon being transferred from the main ED to the Pod. She has been chronically homeless living in an encampment behind the [employer] in [place]. She receives 150mg methadone daily from [facility] in [place] which she received in the ED. Tox positive for opiates, methadone, fentanyl, cocaine, cannabis. She has been smoking crack cocaine daily. She does not have any outpatient services beyond the methadone clinic. She was tearful on admission to the unit, demanding to be released, repeatedly calling her partner to yell at him about landing her here, etc. She refused all participation in the admission process which was completed via observation and the crisis evaluation. She refused to be oriented to the unit and lay on her bed shaking and crying. She eventually calmed without intervention from staff and fell asleep . She continues to seek reassurance that she will be released on Tuesday. Upon waking and asked for clothes and juice, which were provided. Skin check was normal. She is on 15 minute checks.?
[2025-03-02 19:33] VITALS: BP 113/66; PULSE 67; TEMP 36.8; O2SAT 98
[2025-03-03] MEDS: methADONE HCl 20 MG/2 ML ORAL.CONC 150 MG PO (07:47)
[2025-03-03 07:48] LABS: Hemoglobin A1C 102.2381 umol/L; Total Hemoglobin (HGBA1C) 3154.2567 umol/L
[2025-03-03 07:56] LABS: Alanine Aminotransferase 9 U/L (0-31); Albumin Level 3.6 g/dL (3.5-5.0); Alkaline Phosphatase 50 U/L (39-117); Anion Gap 12 (12-20); Aspartate Amino Transferase 23 U/L (5-31); Blood Urea Nitrogen 18 mg/dL (9-16); Calcium 8.8 mg/dL (8.4-10.2); Carbon Dioxide 27 mmol/L (22-29); Chloride 107 mmol/L (96-108); Cholesterol 135 mg/dL (<200); Creatinine Clr Calc Pharmacy 81.9; Estimated Glomerular Filt Rate > 60; HDL Cholesterol 41 mg/dL (>40); Potassium 4.2 mmol/L (3.3-5.1); Sodium 142 mmol/L (135-145); Total Protein 5.6 g/dL (6.5-8.0); Triglycerides 79 mg/dL (<150)
[2025-03-03 08:10] VITALS: BP 101/59; PULSE 65; RESP 16; TEMP 36.3; O2SAT 95
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
[2025-03-03 19:50] VITALS: BP 109/61; PULSE 58; RESP 15; TEMP 36.8; O2SAT 99
--- NOTE | 2025-03-04 | ECG_ITS ---
Test Reason : CK QT Blood Pressure : */* mmHG Vent. Rate : 64 BPM Atrial Rate : 64 BPM P-R Int : 166 ms QRS Dur : 84 ms QT Int : 448 ms P-R-T Axes : 9 46 50 degrees QTcB Int : 462 ms Normal sinus rhythm Normal ECG When compared with ECG of 01-Mar-2025 18:36, T wave inversion less evident in Anterior leads Referred By: Norberto Kahn Electronically Signed By: MORA MARCELO
[2025-03-04 08:00] VITALS: BP 100/58; PULSE 61; RESP 18; TEMP 36.4; O2SAT 97
[2025-03-04] MEDS: methADONE HCl 20 MG/2 ML ORAL.CONC 150 MG PO (08:07)
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
[2025-03-04] MEDS: Throat Lozenge, Medicated LOZENGE 1 LOZENGE MUCOUS MEM ×2 (16:20→20:11)
[2025-03-04 19:40] VITALS: BP 96/55; PULSE 64; RESP 17; TEMP 36.6; O2SAT 98
[2025-03-05] MEDS: methADONE HCl 20 MG/2 ML ORAL.CONC 150 MG PO (07:41)
[2025-03-05 07:44] VITALS: BP 103/68; PULSE 64; RESP 16; TEMP 37; O2SAT 98
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
[2025-03-05 20:00] VITALS: BP 113/71; PULSE 72; TEMP 36.4; O2SAT 98
[2025-03-06] MEDS: methADONE HCl 20 MG/2 ML ORAL.CONC 150 MG PO (07:40)
[2025-03-06 08:00] VITALS: BP 109/61; PULSE 60; RESP 61; O2SAT 98
--- NOTE | 2025-03-06 08:15 | P.DS_ITS ---
DS: Providers Provider Date of Service: 03/06/25 Date of admission: 03/02/25 11:36 Date of discharge: 03/06/25 Primary care physician: Riley Jameson MD Attending physician on admission: Norberto Kahn Attending physician on discharge: Norberto Kahn DS: Medications Discharge Medications Home Medications: Home Medications ?Medication ?Instructions ?Recorded ?Confirmed methadone 10 mg/mL oral 150 mg PO DAILY@0800 5 03/01/25 concentrate (Methadose) Previous Rx's ?Medication ?Instructions ?Recorded paliperidone 3 mg tablet,extended See Rx Instructions .Route 03/06/25 release 24 hr (Invega) .COMPLEX 30 days #90 tabs trazodone 50 mg tablet 50 mg PO BEDTIME PRN Insomni a 30 03/06/25 days #30 tabs Data Data Completed and Pending Completed studies during hospitalization [Text1]: 03/01/25 03/01/25 03/01/25 07:28 09:00 18:58 WBC 6.6 RBC 3.91 L Hgb 12.0 Hct 35.4 L MCV 90.5 MCH 30.7 MCHC 33.9 RDW 12.3 Plt Count 162 MPV 10.8 Immature Gran % (Auto) 0.3 Neut % (Auto) 62.7 Lymph % (Auto) 28.2 [place] % (Auto) 7.6 Eos % (Auto) 0.6 Baso % (Auto) 0.6 Lymph # (Auto) 1.9 [place] # (Auto) 0.5 Eos # (Auto) 0.0 Baso # (Auto) 0.0 Abs Immat Gran (auto) 0.02 Absolute Neuts (auto) 4.1 Absolute Nucleated RBC 0.000 Nucleated RBC % (auto) 0.0 Sodium 139 Potassium 3.8 Chloride 105 Carbon Dioxide 26 Anion Gap 12 BUN 12 Creatinine 0.71 Estim Creat Clear Calc 89.1 Estimated GFR > 60 Random Glucose 101 Estimat Average Glucose Hemoglobin A1c % Calcium 8.7 Magnesium 2.0 Total Bilirubin 0.2 Direct Bilirubin < 0.2 AST 22 ALT 9 Alkaline Phosphatase 54 Troponin I High Sens < 2.7 Total Protein 6.2 L Albumin 4.2 Triglycerides Cholesterol LDL Cholesterol, Calc HDL Cholesterol TSH Beta HCG, Quant < 2 Urine Color Yellow Urine Appearance Clear Urine pH 6.5 Ur Specific [place] 1.025 Urine Protein Trace Urine Glucose (UA) Negative Urine Ketones Trace Urine Blood Negative Urine Nitrite Negative Ur Leukocyte Esterase Negative Urine Opiates Screen POSITIVE H Ur Buprenorphine Scrn Not Detected Ur Oxycodone Screen Not Detected Urine Methadone Screen Positive H Urine Fentanyl Screen POSITIVE H Ur Barbiturates Screen Not Detected Ur Phencyclidine Scrn Not Detected Ur Amphetamines Screen Not Detected U Benzodiazepines Scrn Not Detected Urine Cocaine Screen POSITIVE H U Marijuana (THC) Screen POSITIVE H Ethyl Alcohol < 10 03/01/25 03/03/25 21:17 07:16 WBC RBC Hgb Hct MCV MCH MCHC RDW Plt Count MPV Immature Gran % (Auto) Neut % (Auto) Lymph % (Auto) [place] % (Auto) Eos % (Auto) Baso % (Auto) Lymph # (Auto) [place] # (Auto) Eos # (Auto) Baso # (Auto) Abs Immat Gran (auto) Absolute Neuts (auto) Absolute Nucleated RBC Nucleated RBC % (auto) Sodium 142 Potassium 4.2 Chloride 107 Carbon Dioxide 27 Anion Gap 12 BUN 18 H Creatinine 0.77 Estim Creat Clear Calc 81.9 Estimated GFR > 60 Random Glucose 109 Estimat Average Glucose 100 Hemoglobin A1c % 5.1 Calcium 8.8 Magnesium Total Bilirubin 0.2 Direct Bilirubin AST 23 ALT 9 Alkaline Phosphatase 50 Troponin I High Sens < 2.7 Total Protein 5.6 L Albumin 3.6 Triglycerides 79 Cholesterol 135 LDL Cholesterol, Calc 79 HDL Cholesterol 41 TSH 2.89 Beta HCG, Quant Urine Color Urine Appearance Urine pH Ur Specific [place] Urine Protein Urine Glucose (UA) Urine Ketones Urine Blood Urine Nitrite Ur Leukocyte Esterase Urine Opiates Screen Ur Buprenorphine Scrn Ur Oxycodone Screen Urine Methadone Screen Urine Fentanyl Screen Ur Barbiturates Screen Ur Phencyclidine Scrn Ur Amphetamines Screen U Benzodiazepines Scrn Urine Cocaine Screen U Marijuana (THC) Screen Ethyl Alcohol DS: Summary Time Spent with Patient Time attestation: Total time managing care of this patient today ____ minutes. Discharge Plan Discharge Anticipated Discharge Date/Time: 03/06/25 11:30 Patient Disposition: Home, Self-Care Discharge Diagnosis: Schizophrenia Referrals: Riley Jameson MD [Primary Care Provider, Internal Medicine] Discharge Medications: New paliperidone [Invega] 3 mg Tablet Extended Release 24 Hr See Rx Instructions .ROUTE .COMPLEX 30 Days Qty: 90 0RF Rx Instructions: take 1 tab in the morning and take 2 tabs at bedtime trazodone 50 mg Tablet 50 mg PO BEDTIME PRN (Reason: Insomnia) 30 Days Qty: 30 0RF Continued methadone [Methadose] 10 mg/mL concentrate 150 mg PO DAILY@0800 Rx Instructions: Partial Fill upon patient request. Discharge Orders: Discharge Order (Routine); Ordered 03/06/25 Ordered By: Norberto Kahn Diet: Regular diet Activity on Discharge: As tolerated Stand Alone Forms: Patient Portal Discharge page Print Language: Unable To Collect Care Plan Goals: Maintain mood and safe behaviors Take medications as prescribed Continue to pursue sobriety Practice coping skills Continue with outpatient providers and reach out to them as needed Health Concerns: Mood stability and behaviors Sobriety Plan of Treatment: Follow up with your PCP, psychiatric provider and other outpatient providers regarding above concerns Take medications as prescribed Assessment: Risk assessment at time of discharge:? Patient was interviewed prior to discharge and found to be fully oriented and without any SI or HI. Patient has improved insight and judgment and wants to continue treatment. Patient is not in imminent risk of harm to self or others and has a safety plan that includes presenting to the closest ER or calling 911 if feeling unsafe.? Patient has been observed closely by nursing and unit staff throughout admission; patient has no t engaged in any behaviors that suggest dangerousness to self or others and has demonstrated appropriate behaviors and impulse control
[2025-03-06] MEDS: Naloxone HCl Nasal TAKE HOME 4 MG SPRAY 8 MG NOSTRILALT (08:32)
--- NOTE | 2025-03-06 10:45 | P.DS_ITS ---
DS: Providers Provider Date of Service: 03/06/25 Date of admission: 03/02/25 11:36 Date of discharge: 03/06/25 Primary care physician: Riley Jameson MD Attending physician on admission: Norberto Kahn Attending physician on discharge: Norberto Kahn Discharging clinician: Tracey Zamorano DS: Diagnosis Discharge Diagnosis (1) PTSD (post-traumatic stress disorder): Status: Acute (2) Schizophrenia: Status: Acute (3) Opioid use disorder: Status: Acute (4) Cocaine use disorder: Status: Acute DS: Medications Discharge Medications Home Medications: Home Medications ?Medication ?Instructions ?Recorded ?Confirmed methadone 10 mg/mL oral 150 mg PO DAILY@0800 5 03/01/25 concentrate (Methadose) Previous Rx's ?Medication ?Instructions ?Recorded paliperidone 3 mg tablet,extended See Rx Instructions .Route 03/06/25 release 24 hr (Invega) .COMPLEX 30 days #90 tabs trazodone 100 mg tablet 100 mg PO BEDTIME PRN insomn ia #30 03/06/25 tabs Mental Status Exam Mental Status Exam Narrative: Patient presents well-groomed, casually dressed. Affect is euthymic with full range. Speech is clear and coherent. Thought process is linear and logical. Thought content is appropriate and relevant. Patient denies suicidal or homicidal ideation intent or plan. No overt psychotic symptoms elicited. Insight is fair. Judgement is good. Data Data Completed and Pending Completed studies during hospitalization [Text1]: 03/01/25 03/01/25 03/01/25 07:28 09:00 18:58 WBC 6.6 RBC 3.91 L Hgb 12.0 Hct 35.4 L MCV 90.5 MCH 30.7 MCHC 33.9 RDW 12.3 Plt Count 162 MPV 10.8 Immature Gran % (Auto) 0.3 Neut % (Auto) 62.7 Lymph % (Auto) 28.2 [place] % (Auto) 7.6 Eos % (Auto) 0.6 Baso % (Auto) 0.6 Lymph # (Auto) 1.9 [place] # (Auto) 0.5 Eos # (Auto) 0.0 Baso # (Auto) 0.0 Abs Immat Gran (auto) 0.02 Absolute Neuts (auto) 4.1 Absolute Nucleated RBC 0.000 Nucleated RBC % (auto) 0.0 Sodium 139 Potassium 3.8 Chloride 105 Carbon Dioxide 26 Anion Gap 12 BUN 12 Creatinine 0.71 Estim Creat Clear Calc 89.1 Estimated GFR > 60 Random Glucose 101 Estimat Average Glucose Hemoglobin A1c % Calcium 8.7 Magnesium 2.0 Total Bilirubin 0.2 Direct Bilirubin < 0.2 AST 22 ALT 9 Alkaline Phosphatase 54 Troponin I High Sens < 2.7 Total Protein 6.2 L Albumin 4.2 Triglycerides Cholesterol LDL Cholesterol, Calc HDL Cholesterol TSH Beta HCG, Quant < 2 Urine Color Yellow Urine Appearance Clear Urine pH 6.5 Ur Specific [place] 1.025 Urine Protein Trace Urine Glucose (UA) Negative Urine Ketones Trace Urine Blood Negative Urine Nitrite Negative Ur Leukocyte Esterase Negative Urine Opiates Screen POSITIVE H Ur Buprenorphine Scrn Not Detected Ur Oxycodone Screen Not Detected Urine Methadone Screen Positive H Urine Fentanyl Screen POSITIVE H Ur Barbiturates Screen Not Detected Ur Phencyclidine Scrn Not Detected Ur Amphetamines Screen Not Detected U Benzodiazepines Scrn Not Detected Urine Cocaine Screen POSITIVE H U Marijuana (THC) Screen POSITIVE H Ethyl Alcohol < 10 03/01/25 03/03/25 21:17 07:16 WBC RBC Hgb Hct MCV MCH MCHC RDW Plt Count MPV Immature Gran % (Auto) Neut % (Auto) Lymph % (Auto) [place] % (Auto) Eos % (Auto) Baso % (Auto) Lymph # (Auto) [place] # (Auto) Eos # (Auto) Baso # (Auto) Abs Immat Gran (auto) Absolute Neuts (auto) Absolute Nucleated RBC Nucleated RBC % (auto) Sodium 142 Potassium 4.2 Chloride 107 Carbon Dioxide 27 Anion Gap 12 BUN 18 H Creatinine 0.77 Estim Creat Clear Calc 81.9 Estimated GFR > 60 Random Glucose 109 Estimat Average Glucose 100 Hemoglobin A1c % 5.1 Calcium 8.8 Magnesium Total Bilirubin 0.2 Direct Bilirubin AST 23 ALT 9 Alkaline Phosphatase 50 Troponin I High Sens < 2.7 Total Protein 5.6 L Albumin 3.6 Triglycerides 79 Cholesterol 135 LDL Cholesterol, Calc 79 HDL Cholesterol 41 TSH 2.89 Beta HCG, Quant Urine Color Urine Appearance Urine pH Ur Specific [place] Urine Protein Urine Glucose (UA) Urine Ketones Urine Blood Urine Nitrite Ur Leukocyte Esterase Urine Opiates Screen Ur Buprenorphine Scrn Ur Oxycodone Screen Urine Methadone Screen Urine Fentanyl Screen Ur Barbiturates Screen Ur Phencyclidine Scrn Ur Amphetamines Screen U Benzodiazepines Scrn Urine Cocaine Screen U Marijuana (THC) Screen Ethyl Alcohol DS: Summary Hospital Course Hospital Course: HPI: per Admitting provider note: Patient comes to the emergency room via ambulance. Patient's boyfriend call PD because the patient was acting erratic. According to PD, patient is feeling voices and responding to them. Patient believes that she is seeing people [place], patient is chasing people down the hill that are not there. Patient states that a allied health teacher from the [employer] went to visit her [place] the [place] did tell her that her friends and parents are . Patient has stopped taking her medications a few weeks ago. Patient denies SI or HI. However, patient clearly believes that she is seeing this people that are not there. Patient was section 12 by PD and brought to emergency room. Lindsey arrived from the pod at 12:40 on a 12B for psychosis. Her partner of 7 years called the police due to her erratic behavior. Per crisis report, he states that she was not sleeping for days and was stating that she was being chased through the [place]. She signed a CV which was rejected. She insisted on signing because she believed that she would get out faster on 3-day notice and thought that both RN and MD were lying when telling her that this was not the case and she ought to remain on section 12B.? She likely now believes that she is on a 3-day notice and is unwilling to discuss with staff. She has been inpatient before and has received involuntary substance abuse treatment via section 35 multiple times. These experiences have been traumatic for her and she adamantly does not want to be in the hospital. She received a medication restraint due to agitation upon being transferred from the main ED to the Pod. She has been chronically homeless living in an encampment behind the [employer] in [place]. She receives 150mg methadone daily from [facility] in [place] which she received in the ED. Tox positive for opiates, methadone, fentanyl, cocaine, cannabis. She has been smoking crack cocaine daily. She does not have any outpatient services beyond the methadone clinic. She was tearful on admission to the unit, demanding to be released, repeatedly calling her partner to yell at him about landing her here, etc. She refused all participation in the admission process which was completed via observation and the crisis evaluation. She refused to be oriented to the unit and lay on her bed shaking and crying. She eventually calmed without intervention from staff and fell asleep . She continues to seek reassurance that she will be released on Tuesday. Upon waking and asked for clothes and juice, which were provided. Skin check was normal. She is on 15 minute checks.? Formulation/clinical reasoning: Patient has psychotic illness, schizophrenia versus schizoaffective disorder, worsened by chronic substance abuse. Patient responded moderately well to Haldol in the past however had dystonic reaction; will try paliperidone instead since similar to Haldol but much less risk for dystonia. Discussed with patient who agrees with paliperidone. 03/04 Patient says she is still worried about parents, but less so... And willing to consider that perhaps they are not actually kidnapped. She says they were not responding to her which made her worried. Patient feels that medications are helpful and says she will keep taking them. She says the only reason she ends up discontinuing medications in the community is because it can be hard to make her appointments given that she is homeless. Discussed resources and patient is interested in possibly switching to Suboxone/Sublocade and addiction consult placed. For now she will remain on methadone. 03/05/25: Continue current treatment plan. Providers working on sending medication to preferred pharmacy prior to discharge. ornamental metal worker helper is working on aftercare appointments for psychiatric services. Time spent discussing smoking cessation with patient: 3 to 10 minutes Status at Discharge Cognitive/behavioral status at discharge: CONDITION ON DISCHARGE: CURRENT STATUS IT RELATES TO ADMISSION CRITERIA: Stable, improved. Improvements in depression, anxiety, and suicidal ideation. Improvements in sleep, energy, and appetite. and no hallucination or paranoia/delusional thought. Functional status at discharge: independent ambulation Overall status at discharge: patient is back to baseline Time Spent with Patient Time attestation: Total time managing care of this patient today ____ minutes. Time spent: Greater than 30 minutes Discharge Plan Discharge Anticipated Discharge Date/Time: 03/06/25 11:30 Patient Disposition: Home, Self-Care Discharge Diagnosis: Schizophrenia Referrals: [facility] [Other] - 1 Day Referral Note: Social work has placed a referral for psychiatry and they will reach out to you for an appt. Social work gave them your boyfriend's phone number to call for your appt. If they don't reach out to you today or tomorrow call the number to follow up. [facility] [place] [Other] - 1 Day [facility] [place] [Other] - 3-5 Days Referral Note: Light snacks are often available and hot coffee is always brewing! Come by to connect, join groups, and hang out. Open Hours Tuesday: 12pm-4pm Tuesday: 12pm-4pm Tuesday: 12pm-4pm : 12pm-4pm [facility] [place] [facility] [place] [Other] Referral Note: [employer], printer, and fax Gym equipment Space to connect with others [employer] (limited-lottery based) Clothing pantry Open Hours Tuesdays 9:00am ? 1:00pm Wednesdays 9:00am ? 1:00pm 9:00am ? 1:00pm Fridays 9:00am ? 1:00pm Saturdays 10:00am ? 1:00pm Riley Jameson MD [Primary Care Provider, Internal Medicine] Referral Note: Because you did not sign a release of information, the records of this hospitalization were not forwarded. If you would like them sent in future, please call the hospital and ask for the medical records department. Discharge Medications: New paliperidone [Invega] 3 mg Tablet Extended Release 24 Hr See Rx Instructions .ROUTE .COMPLEX 30 Days Qty: 90 0RF Rx Instructions: take 1 tab in the morning and take 2 tabs at bedtime trazodone 100 mg tablet 100 mg PO BEDTIME PRN (Reason: insomnia) Qty: 30 0RF Continued methadone [Methadose] 10 mg/mL concentrate 150 mg PO DAILY@0800 Rx Instructions: Partial Fill upon patient request. Discharge Orders: Discharge Order (Routine); Ordered 03/06/25 Ordered By: Norberto Kahn Diet: Regular diet Activity on Discharge: As tolerated Stand Alone Forms: Patient Portal Discharge page, Community Support Print Language: Unable To Collect Care Plan Goals: Maintain mood and safe behaviors Take medications as prescribed Continue to pursue sobriety Practice coping skills Continue with outpatient providers and reach out to them as needed Health Concerns: Mood stability and behaviors Sobriety Plan of Treatment: Follow up with your PCP, psychiatric provider and other outpatient providers regarding above concerns Take medications as prescribed Assessment: Risk assessment at time of discharge:? Patient was interviewed prior to discharge and found to be fully oriented and without any SI or HI. Patient has improved insight and judgment and wants to continue treatment. Patient is not in imminent risk of harm to self or others and has a safety plan that includes presenting to the closest ER or calling 911 if feeling unsafe.? Patient has been observed closely by nursing and unit staff throughout admission; patient has not engaged in any behaviors that suggest dangerousness to self or others and has demonstrated appropriate behaviors and impulse control Discharge Date/Time: 03/06/25 11:48
== END 2025-03-06 11:48 | disposition home or self-care (01) | DRG 750 ==
LOC: HO.ED 03-02 11:22 → HO.PM5 03-02 11:43
PROVIDERS: Emergency Medicine Emergency Medical Services; Admitting Provider Psychiatry & Neurology Psychiatry; Emergency Provider Emergency Medicine; PCP Emergency Medicine; Visit Provider Psychiatry & Neurology Psychiatry
DX: F20.9 Schizophrenia, unspecified (principal); F11.20 Opioid dependence, uncomplicated; F43.10 Post-traumatic stress disorder, unspecified; F19.90 Other psychoactive substance use, unspecified, uncomplicated; F14.10 Cocaine abuse, uncomplicated; Z59.02 Unsheltered homelessness
CPT/HCPCS: 36415; 80048; 80053; 80061; 80076; 80307; 81003; 83036; 83735; 84443; 84484; 84702; 85025; 93005; 99285; J2060; J2359; S9485

== ENCOUNTER → 2025-03-01 18:36 | Outpatient (BNV) | payer MEDICAID, SELFPAY | PROVIDERS: Admitting Provider Psychiatry & Neurology Psychiatry; Emergency Provider Emergency Medicine; PCP Emergency Medicine; Visit Provider Internal Medicine Cardiovascular Disease | DX: R00.1 Bradycardia, unspecified (principal) | CPT/HCPCS: 93010 ==

== ENCOUNTER 2025-03-02 11:36 | Outpatient (BNV) | payer MEDICAID, SELFPAY | END 2025-03-04 15:07 | PROVIDERS: Admitting Provider Psychiatry & Neurology Psychiatry; Emergency Provider Emergency Medicine; PCP Emergency Medicine; Visit Provider Internal Medicine | DX: I45.81 Long QT syndrome (principal) | CPT/HCPCS: 93010 ==

== ENCOUNTER → 2025-03-02 11:36 | Outpatient (BNV) | payer OTHER, SELFPAY | PROVIDERS: Admitting Provider Psychiatry & Neurology Psychiatry; Emergency Provider Emergency Medicine; PCP Emergency Medicine; Visit Provider Nurse Practitioner Psychiatric/Mental Health | DX: F20.0 Paranoid schizophrenia (principal); F14.10 Cocaine abuse, uncomplicated; F11.90 Opioid use, unspecified, uncomplicated; F43.11 Post-traumatic stress disorder, acute | CPT/HCPCS: 99231; 99232 ==